=== PATIENT | female | born 1950 | race Caucasian/White ===

== ENCOUNTER 2018-04-06 07:14 | Emergency (ER) | payer OTHER ==
[2018-04-06] MEDS ORDERED: ONDANSETRON 4 MG/2 ML VIAL ONE ×2 (07:43→08:36)
[2018-04-06 08:12] LABS: Absolute Lymphocytes (CBC) 1.4 K/uL (0.7-4.9); Absolute Monocytes 0.4 K/uL (0.1-1.3); Absolute Neutrophil 5.5 K/uL (1.8-8.0); Basophils % 0.5 % (0-1.3); Eosinophils % 0.9 % (0-4.4); Hematocrit 40.6 % (36.0-45.0); Lymphocytes % 18.5 % (15.3-44.8); MPV 7.8 fL (7.6-11.3); RBC Red Blood Cell Count 4.76 M/uL (3.86-4.86)
[2018-04-06] MEDS ORDERED: DIAZEPAM 10 MG/2 ML INJ SYRINGE ONE (08:12)
[2018-04-06] MEDS ORDERED: MECLIZINE HCL 12.5 MG TAB ONE (08:12)
[2018-04-06] MEDS ORDERED: NA CHLORIDE 0.9% 1,000 ML ONE (08:13)
--- NOTE | 2018-04-06 08:30 | RAD REPORT ---
EXAM DESCRIPTION: CT - Head Brain Wo Cont - 04/06/2018 8:20 am CLINICAL HISTORY: Vomiting, headache, dizziness COMPARISON: December 2015 TECHNIQUE: Axial 5 mm thick images of the head were obtained without IV contrast. All CT scans are performed using dose optimization technique as appropriate and may include automated exposure control or mA/KV adjustment according to patient size. FINDINGS: No intracranial hemorrhage, mass, edema or shift of mid-line structures. No acute infarcti on changes seen. No abnormal extra-axial fluid collections. Ventricles are normal. No measurable atr ophy or chronic ischemic change. Intracranial findings are similar to comparison. Mastoid air cells and visualized portions of the paranasal sinuses are clear. No acute bony findings. IMPRESSION: Negative non-contrast CT head examination. No significant change from comparison.
[2018-04-06 09:13] LABS: Bilirubin Direct 0.2 mg/dL (0-0.2); Bilirubin Total 0.7 mg/dL (0.2-1.0); Potassium 3.8 mmol/L (3.5-5.1)
--- NOTE | 2018-04-06 10:13 | RAD REPORT ---
EXAM DESCRIPTION: CT - Head angio - 04/06/2018 9:53 am CLINICAL HISTORY: Dizziness, weakness, headache TECHNIQUE: During dynamic enhancement using nonionic IV contrast, axial 1 millimeter thick images of the head were obtained. Sagittal and axial reconstruction images were generated using MIP technique and reviewed. All CT scans are performed using dose optimization technique as appropriate and may include automated exposure control or mA/KV adjustment according to patient size. COMPARISON: CT head April 06 FINDINGS: No aneurysm or vascular malformation identified. Major venous sinuses are patent. No stenosis, named branch occlusion, vasculitis or other significant vascular finding identifiable. Right vertebral artery is dominant. The right posterior cerebral artery P1 segment is very small. The patient has a dominant right posterior communicating artery contributing most of the right [employer] flow. Small anterior communicating artery is present. IMPRESSION: Negative CT angio head examination.
[2018-04-06 11:27] LABS: Urine Blood NEGATIVE (NEG); Urine Glucose NEGATIVE (NEG); Urine Protein NEGATIVE (NEG)
--- NOTE | 2018-04-06 11:42 | EDPHYS ---
Physician Documentation [facility] Name: Sepideh Mendosa Age: 67 yrs Sex: Female : 1950 Arrival Date: 04/06/2018 Time: 07:22 Bed 6 Private MD: ED Physician Jani Russo HPI: 04/06 10:12 This 67 yrs old Female presents to ER via EMS with complaints of kdr Nausea/Vomiting, Flu Symptoms. 10:12 The patient presents to the emergency department with nausea, that is mild, that is kdr moderate, vomiting, that is intermittent. Onset: The symptoms/episode began/occurred suddenly, at 05:00. Possible causes: unknown, Vertigo. The symptoms are aggravated by movement, The symptoms are alleviated by remaining still. Associated signs and symptoms: Pertinent positives: nausea, vomiting. Severity of symptoms: At their worst the symptoms were moderate incapacitating just prior to arrival, in the emergency department the symptoms are unchanged. The patient has not experienced similar symptoms in the past. The patient has not recently seen a physician. . Historical: - Allergies: 07:38 Sulfa (Sulfonamide Antibiotics); ch 07:38 narcotics make me hallucinate; ch 07:38 Codeine; ch - Home Meds: 07:38 levothyroxine oral [Active]; ch - PMHx: 07:38 Asthma; HYPOGLYCEMIA; ch - PSHx: 07:38 Hysterectomy; Cholecystectomy; Mastectomy, Left; Mastectomy, Right; ch - Immunization history:: Adult Immunizations up to date. - Social history:: Smoking status: Patient/guardian denies using tobacco. - Ebola Screening: : Patient negative for fever greater than or equal to 101.5 degrees Fahrenheit, and additional compatible Ebola Virus Disease symptoms Patient denies exposure to infectious person Patient denies travel to an Ebola-affected area in the 21 days before illness onset No symptoms or risks identified at this time. ROS: 10:12 Constitutional: Negative for fever, chills, and weight loss, Eyes: Negative for injury, kdr pain, redness, and discharge, ENT: Negative for injury, pain, and discharge, Neck: Negative for injury, pain, and swelling, Cardiovascular: Negative for chest pain, palpitations, and edema, Respiratory: Negative for shortness of breath, cough, wheezing, and pleuritic chest pain, Abdomen/GI: Negative for abdominal pain, nausea, vomiting, diarrhea, and constipation, Back: Negative for injury and pain, : Negative for injury, bleeding, discharge, and swelling, MS/Extremity: Negative for injury and deformity, Skin: Negative for injury, rash, and discoloration, Psych: Negative for depression, anxiety, suicide ideation, homicidal ideation, and hallucinations, Allergy/Immunology: Negative for hives, rash, and allergies, Endocrine: Negative for neck swelling, polydipsia, polyuria, polyphagia, and marked weight changes, Hematologic/Lymphatic: Negative for swollen nodes, abnormal bleeding, and unusual bruising. 10:12 Neuro: Positive for dizziness, weakness, Negative for altered mental status, loss of consciousness, speech changes, syncope, near syncope, tingling, tinnitus, tremor, visual changes. Exam: 10:12 Constitutional: This is a well developed, well nourished patient who is awake, alert, kdr and in no acute distress. Head/Face: Normocephalic, atraumatic. Eyes: Pupils equal round and reactive to light, extra-ocular motions intact. Lids and lashes normal. Conjunctiva and sclera are non-icteric and not injected. Cornea within normal limits. Periorbital areas with no swelling, redness, or edema. Neck: Trachea midline, no thyromegaly or masses palpated, and no cervical lymphadenopathy. Supple, full range of motion without nuchal rigidity, or vertebral point tenderness. No Meningismus. Chest/axilla: Normal chest wall appearance and motion. Nontender with no deformity. No lesions are appreciated. Cardiovascular: Regular rate and rhythm with a normal S1 and S2. No gallops, murmurs, or rubs. Normal PMI, no JVD. No pulse deficits. Respiratory: Lungs have equal breath sounds bilaterally, clear to auscultation and percussion. No rales, rhonchi or wheezes noted. No increased work of breathing, no retractions or nasal flaring. Abdomen/GI: Soft, non-tender, with normal bowel sounds. No distension or tympany. No guarding or rebound. No evidence of tenderness throughout. Back: No spinal tenderness. No costovertebral tenderness. Full range of motion. Skin: Warm, dry with normal turgor. Normal color with no rashes, no lesions, and no evidence of cellulitis. MS/ Extremity: Pulses equal, no cyanosis. Neurovascular intact. Full, normal range of motion. Psych: Awake, alert, with orientation to person, place and time. Behavior, mood, and affect are within normal limits. 10:12 Neuro: Orientation: is normal, Mentation: is normal, Cerebellar function: is grossly normal based on the patient's age, Motor: is normal. Vital Signs: 07:38 BP 129 / 77; Pulse 73; Resp 16; Temp 97.6(O); Pulse Ox 91% on R/A; Weight 89.36 kg; ch Height 5 ft. 6 in. (167.64 cm); Pain 0/10; 08:34 BP 128 / 62; Pulse 70; Resp 16; Temp 97.8(O); Pulse Ox 93% on R/A; Pain 0/10; ch 09:35 BP 119 / 58; Pulse 64; Resp 15; Pulse Ox 99% on R/A; Pain 0/10; ch 07:38 Body Mass Index 31.80 (89.36 kg, 167.64 cm) ch 08:34 pt c/o feeling very cold, given another couple blankets. denies pain MDM: 11:37 Data reviewed: vital signs, nurses notes. ED course: The patient is feeling and looking kdr much better. States she is ready to go home. The patient and were happy with the care provided and the plan for discharge and follow-up. 11:42 Patient medically screened. [facility] 04/06 07:32 Order name: Basic Metabolic Panel; Complete Time: 09:24 [facility] 04/06 07:32 Order name: CBC with Diff; Complete Time: 09:10 [facility] 04/06 07:32 Order name: Creatinine for Radiology; Complete Time: 09:24 kdr 04/06 07:32 Order name: Hepatic Function; Complete Time: 09:24 kdr 04/06 07:32 Order name: Lipase; Complete Time: 09:24 [facility] 04/06 07:32 Order name: Flu; Complete Time: 09:10 [facility] 04/06 07:58 Order name: CT Head Brain wo Cont; Complete Time: 09:10 [facility] 04/06 09:36 Order name: Head angio; Complete Time: 11:03 EDMS 04/06 11:00 Order name: Urine Dipstick--Ancillary (enter results) 04/06 07:32 Order name: IV Saline Lock; Complete Time: 07:53 kdr 04/06 07:32 Order name: Labs collected and sent; Complete Time: 07:53 kdr Administered Medications: 07:55 Drug: Zofran 4 mg Route: IVP; Site: left antecubital; sg 08:25 Follow up: Response: No adverse reaction; Nausea is decreased sg 08:10 Drug: NS 0.9% 500 ml Route: IV; Rate: bolus; Site: left antecubital; hb 09:34 Follow up: IV Status: Completed infusion; IV Intake: 500ml ch 08:34 Drug: Zofran 4 mg Route: IVP; Site: left antecubital; ch 09:34 Follow up: Response: No adverse reaction ch 09:28 Not Given (Patient Refused): Valium 2 mg IVP once hb 09:29 Drug: Meclizine 25 mg Route: PO; hb 09:35 Follow up: Response: No adverse reaction Disposition: 04/06/18 11:42 Discharged to Home. Impression: Dizziness and giddiness, Nausea and vomiting. - Condition is Stable. - Discharge Instructions: Dizziness, [id number]. - Prescriptions for Meclizine 25 mg Oral Tablet - take 1 tablet by ORAL route every 8 hours As needed; 15 tablet. Zofran 4 mg Oral Tablet - take 1 tablet by ORAL route every 12 hours As needed; 12 tablet. - Medication Reconciliation Form, Thank You Letter form. - Follow up: Private Physician; When: 2 - 3 days; Reason: If symptoms return, Further diagnostic work-up, Recheck today's complaints, Continuance of care, Re-evaluation by your physician. - Problem is new. - Symptoms are resolved. Signatures: Dispatcher [employer] [facility] Natalia Tesfaye RN RN Christopher Chou RN RN sg Jani Russo MD MD [facility] Tosha Richard RN RN hb Corrections: (The following items were deleted from the chart) 09:36 09:34 Head Brain W Cont+CT.RAD.BRZ ordered. [facility] EDNY 12:00 11:42 04/06/2018 11:42 Discharged to Home. Impression: Dizziness and giddiness; Nausea hb and vomiting. Condition is Stable. Forms are Medication Reconciliation Form, Thank You Letter, Antibiotic Education, Prescription Opioid Use. Follow up: Private Physician; When: 2 - 3 days; Reason: If symptoms return, Further diagnostic work-up, Recheck today's complaints, Continuance of care, Re-evaluation by your physician. Problem is new. Symptoms are resolved. kdr
--- NOTE | 2018-04-06 11:42 | ER ---
Nurse's Notes [facility] Name: Sepideh Mendosa Age: 67 yrs Sex: Female : 1950 Arrival Date: 04/06/2018 Time: 07:22 Bed 6 Private MD: Diagnosis: Dizziness and giddiness;Nausea and vomiting Presentation: 04/06 07:35 Presenting complaint: EMS states: vomiting, dry heaves started around 0500. feels ch "bad", generalized body aches. pt is cool and diaphoretic, and activity vomiting. 2 unsuccessful IV access attempts. Transition of care: patient was not received from another setting of care. Onset of symptoms was April 06, 2018 at 05:00. Risk Assessment: Do you want to hurt yourself or someone else? Patient reports no desire to harm self or others. Initial Sepsis Screen: Does the patient meet any 2 criteria? No. Patient's initial sepsis screen is negative. Does the patient have a suspected source of infection? No. Patient's initial sepsis screen is negative. Care prior to arrival: None. 07:35 Method Of Arrival: EMS: [facility] 07:35 Acuity: EDDY 3 ch Triage Assessment: 07:38 General: Appears in no apparent distress. uncomfortable, ill, Behavior is cooperative, ch quiet. Pain: Denies pain. GI: Abdomen is round non-distended, Pt is actively vomiting pt is having Dry Heaves Bowel sounds present X 4 quads. Reports nausea, vomiting. Derm: Skin is intact, Skin is clammy, diaphoretic, Skin is pale, Skin temperature is cool. Historical: - Allergies: 07:38 Sulfa (Sulfonamide Antibiotics); ch 07:38 narcotics make me hallucinate; 07:38 Codeine; - Home Meds: 07:38 levothyroxine oral [Active]; ch - PMHx: 07:38 Asthma; HYPOGLYCEMIA; ch - PSHx: 07:38 Hysterectomy; Cholecystectomy; Mastectomy, Left; Mastectomy, Right; - Immunization history:: Adult Immunizations up to date. - Social history:: Smoking status: Patient/guardian denies using tobacco. - Ebola Screening: : Patient negative for fever greater than or equal to 101.5 degrees Fahrenheit, and additional compatible Ebola Virus Disease symptoms Patient denies exposure to infectious person Patient denies travel to an Ebola-affected area in the 21 days before illness onset No symptoms or risks identified at this time. Screenin:40 Abuse screen: Denies threats or abuse. Denies injuries from another. Nutritional ch screening: No deficits noted. Tuberculosis screening: No symptoms or risk factors identified. Fall Risk None identified. Assessment: 07:40 GI: Abdomen is round non-distended, Pt is actively vomiting bile. ch 07:49 General: Appears in no apparent distress. uncomfortable. Pain: Denies pain. Neuro: ch Level of Consciousness is obeys commands, Oriented to person, place, time, situation. Cardiovascular: Denies chest pain. Respiratory: Airway is patent Respiratory effort is even, unlabored. : No signs and/or symptoms were reported regarding the genitourinary system. Derm: Skin is clammy, Skin is pale. 08:34 Reassessment: Patient appears in no apparent distress at this time. pt returns from CT, ch Actively vomiting. pt medicated per orders. 09:35 Reassessment: Patient appears in no apparent distress at this time. Patient and/or ch family updated on plan of care and expected duration. Pain level reassessed. pt is improved, states she feels better. pt oob via wheelchair to restroom . 10:06 Reassessment: Patient appears in no apparent distress at this time. pt refuses straight sg cath urine at this time, reports she will attempt to clean better and provide a sample, notified, pt will attempt a urine specimen at this time. Vital Signs: 07:38 BP 129 / 77; Pulse 73; Resp 16; Temp 97.6(O); Pulse Ox 91% on R/A; Weight 89.36 kg; ch Height 5 ft. 6 in. (167.64 cm); Pain 0/10; 08:34 BP 128 / 62; Pulse 70; Resp 16; Temp 97.8(O); Pulse Ox 93% on R/A; Pain 0/10; ch 09:35 BP 119 / 58; Pulse 64; Resp 15; Pulse Ox 99% on R/A; Pain 0/10; ch 07:38 Body Mass Index 31.80 (89.36 kg, 167.64 cm) 08:34 pt c/o feeling very cold, given another couple blankets. denies pain ED Course: 07:22 Patient arrived in ED. ch 07:25 Jani Russo MD is Attending Physician. kdr 07:31 Natalia Tesfaye, LEONCIO is Primary Nurse. ch 07:36 Triage completed. ch 07:38 Arm band placed on left wrist. Patient placed in an exam room, on a stretcher, on pulse ch oximetry. 07:40 No apparent distress. Resting quietly. ch 07:40 Patient has correct armband on for positive identification. Placed in gown. Bed in low ch position. Call light in reach. Side rails up X 1. Adult w/ patient. Pulse ox on. NIBP on. Warm blanket given. 07:40 No provider procedures requiring assistance completed. ch 07:45 Missed attempt(s): 22 gauge in right hand. Bleeding controlled, band aid applied, sg catheter tip intact. 07:50 Inserted saline lock: 20 gauge in left antecubital area, using aseptic technique. Blood dh3 collected. 08:17 CT completed. Patient tolerated procedure well. Patient moved to CT via stretcher. [email or web address] Patient moved back from CT. 08:19 CT Head Brain wo Cont In Process Unspecified. EDMS 08:25 Patient moved back from CT. sg 09:37 Assisted to bathroom. sg 09:54 Head angio In Process Unspecified. EDMS 11:55 IV discontinued, intact, bleeding controlled, No redness/swelling at site. Pressure sg dressing applied. Administered Medications: 07:55 Drug: Zofran 4 mg Route: IVP; Site: left antecubital; sg 08:25 Follow up: Response: No adverse reaction; Nausea is decreased sg 08:10 Drug: NS 0.9% 500 ml Route: IV; Rate: bolus; Site: left antecubital; hb 09:34 Follow up: IV Status: Completed infusion; IV Intake: 500ml ch 08:34 Drug: Zofran 4 mg Route: IVP; Site: left antecubital; ch 09:34 Follow up: Response: No adverse reaction ch 09:28 Not Given (Patient Refused): Valium 2 mg IVP once hb 09:29 Drug: Meclizine 25 mg Route: PO; hb 09:35 Follow up: Response: No adverse reaction ch Intake: 09:34 IV: 500ml; Total: 500ml. ch Outcome: 11:42 Discharge ordered by . kdr 11:55 Discharged to home ambulatory, with family. sg 11:55 Condition: good 11:55 Discharge instructions given to patient, Instructed on discharge instructions, follow up and referral plans. medication usage, safety practices, Demonstrated understanding of instructions, follow-up care, medications, Prescriptions given X 2. 12:00 Patient left the ED. Signatures: Dispatcher [employer] EDMS Natalia Tesfaye RN RN Christopher Chou RN RN Jani Russo MD MD kdr Baxter, Heather, RN RN Reyna Shoemaker [facility] Brianna Castillo6
[2018-04-06 12:09] VITALS: TEMP 97.8
[2018-04-06 12:12] VITALS: BP 119/58; O2SAT 99
== END 2018-04-06 12:00 | disposition home or self-care (01) ==
LOC: ER 07:14
DX: R11.2 Nausea with vomiting, unspecified (principal); Z88.2 Allergy status to sulfonamides; Z88.5 Allergy status to narcotic agent; Z90.13 Acquired absence of bilateral breasts and nipples
CPT/HCPCS: 36415; 70450; 70496; 80048; 80076; 81003; 83690; 85025; 87804 ×2; 96361; 96374; 99285; J2405 ×2; J3360; J7030; Q9967

== ENCOUNTER 2018-10-01 09:06 | Emergency (ER) | payer OTHER ==
[2011-12-16 07:57] VITALS: BP 103/43
--- NOTE | 2018-10-01 09:52 | RAD REPORT ---
EXAM DESCRIPTION: CT - Ct Stroke Brain Wo Cont - 10/01/2018 9:30 am CLINICAL HISTORY: brief L sided facial droop, mild aphasia Headache, CVA COMPARISON: Head angio dated 04/06/2018; Head Brain Wo Cont dated 04/06/2018 TECHNIQUE: All CT scans are performed using dose optimization technique as appropriate and may inclu de automated exposure control or mA/KV adjustment according to patient size. FINDINGS: No intracranial hemorrhage, hydrocephalus or extra-axial fluid collection.No areas of brai n edema or evidence of midline shift. The paranasal sinuses and mastoids are clear. The calvarium is intact. IMPRESSION: No acute intracranial abnormality. The findings were discussed with Dr. Cronin On 10/01/18 at 9:25 am by telephone.
--- NOTE | 2018-10-01 10:00 | EKG ---
Test Date: 2018-10-01 Test Time: 09:46:50 [place]: PATTI MEASUREMENT RESULTS: Intervals: Rate: 78 GA: 222 QRSD: 98 QT: 402 QTc: 458 [place]: P: 60 GA: 222 QRS: 72 T: 50 INTERPRETIVE STATEMENTS: Sinus rhythm with 1st degree AV block Otherwise normal ECG Compared to ECG 10/03/2015 14:09:33 First degree AV block now present ST (T wave) deviation no longer present Electronically Signed On 10-01-18 10:00:00 CDT by Shlomo Eckert
[2018-10-01 10:02] LABS: Absolute Lymphocytes (CBC) 2.7 K/uL (0.7-4.9); Basophils % 0.6 % (0-1.3); Eosinophils % 2.3 % (0-4.4); Hematocrit 39.8 % (36.0-45.0); MPV 7.5 fL (7.6-11.3); Monocytes % 8.4 % (3.3-12.3); RBC Red Blood Cell Count 4.67 M/uL (3.86-4.86)
[2018-10-01 10:05] LABS: Protime INR 0.96
[2018-10-01] MEDS ORDERED: ALTEPLASE 100 ML IV ONE (10:11)
[2018-10-01 10:16] LABS: Potassium 3.5 mmol/L (3.5-5.1)
[2018-10-01] MEDS ORDERED: NA CHLORIDE 0.9% 250 ML ONE (10:16)
--- NOTE | 2018-10-01 10:31 | ER ---
Nurse's Notes [facility] Name: Sepideh Mendosa Age: 68 yrs Sex: Female : 1950 Arrival Date: 10/01/2018 Time: 09:07 Bed 6 Private MD: Aly Johnson Diagnosis: Slurred speech;Paresthesia of skin;Facial weakness;Cerebral infarction Presentation: 10/01 09:10 Presenting complaint: states: Eating at 0850 when patient reports she could ss feel the left side of her face pulling. She asked her if it looked like it was drooping and he said yes. Patient and came straight to ER. Upon arrival to ED, patient reports that her facial drooping seems better, but she doesn't know why she keeps crying. Pt seems to be having trouble finding words. Transition of care: patient was not received from another setting of care. Onset of symptoms was October 01, 2018 at 08:50. Risk Assessment: Do you want to hurt yourself or someone else? Patient reports no desire to harm self or others. Initial Sepsis Screen: Does the patient meet any 2 criteria? No. Patient's initial sepsis screen is negative. Does the patient have a suspected source of infection? No. Patient's initial sepsis screen is negative. Care prior to arrival: None. 09:10 Method Of Arrival: Ambulatory ss 09:10 Acuity: EDDY 2 ss 09:15 Presenting complaint: states: stated that pt was also c/o left facial numbness, sv dizziness, and nausea at the time on onset. 09:21 An acute neurological deficit is present. The charge nurse has been notified. The sv patient has been moved to a treatment area. Pre-hospital glucose is not applicable to this patient. Stroke Activation: Symptom onset < 3 hours Physician: Stroke Attending; Name: ; Notified At: ; Arrived At: Physician: Chief Stroke Resident; Name: ; Notified At: ; Arrived At: Physician: Stroke Resident; Name: ; Notified At: ; Arrived At: Physician: ED Attending; Name: Dr Cronin; Notified At: 09:19; Arrived At: 09:21 Physician: ED Resident; Name: ; Notified At: ; Arrived At: Historical: - Allergies: 10:13 Codeine; sv 10:13 narcotics make me hallucinate; sv 10:13 Sulfa (Sulfonamide Antibiotics); sv - Home Meds: 10:13 statin drug every other day [Active]; Advair Diskus Inhl [Active]; levothyroxine oral sv [Active]; Prevacid Oral [Active]; Proventil HFA inhalation inhalation [Active]; - PMHx: 10:13 Asthma; HYPOGLYCEMIA; mitral valve prolapse; TIA; sv - PSHx: 10:13 Hysterectomy; Cholecystectomy; Mastectomy, Left; Mastectomy, Right; sv - Immunization history:: Adult Immunizations up to date. - Family history:: not pertinent. - Social history:: Smoking status: Patient/guardian denies using tobacco. - Ebola Screening: : No symptoms or risks identified at this time. - Hospitalizations: : No recent hospitalization is reported. Screenin:25 Abuse screen: Denies threats or abuse. Denies injuries from another. Nutritional ss screening: No deficits noted. Tuberculosis screening: Never had TB. 10:46 Fall Risk No fall in past 12 months (0 pts). No secondary diagnosis (0 pts). IV access sv (20 points). Ambulatory Aid- None/Bed Rest/Nurse Assist (0 pts). Gait- Normal/Bed Rest/Wheelchair (0 pts) Mental Status- Overestimates/Forgets Limitations (15 pts.). Total Bojorquez Fall Scale indicates Low Risk Score (25-44 pts). Fall prevention measures have been instituted. Side Rails Up X 2 Placed close to Nursing Station 1:1 attendant Assigned to Pt. Frequent Obs/Assesments occuring Family Present and informed to notify staff if they need to leave bedside As available Patient and Family Educated on Fall Prevention Program and strategies. Assessment: 09:10 Reassessment: Code Stroke called, patient to CT at this time VIA wheelchair. ss brought to Room 6. 09:25 VAN Scoring: Arm Drift: Patients demonstrates NO arm weakness. Patient is VAN Negative. sv Visual Disturbance: No visual disturbance noted. Aphasia: No aphasia noted. Neglect: No neglect noted. Patient has been NPO before screening. The patient is alert, and able to follow commands. The patient does not exhibit slurred or garbled speech. The patient is exhibiting difficulty speaking. Provider notified of the indication for Speech Therapy consult. The patient does not exhibit difficulty understanding words. The patient is able to swallow own secretions with no drooling or need for suction. Patient tolerated one teaspoon of water. No drooling, immediate coughing, gurgling, or clearing of the throat was noted. The patient tolerated 90mL of water. No drooling, immediate coughing, gurgling, or clearing of the throat was noted. The patient passed the bedside swallow screening. Oral medications may be given as ordered. Contact Physician for further diet orders. Provider notified of bedside swallow screening results: Ronni Cronin MD. 09:25 General: Appears in no apparent distress. uncomfortable, well developed, Behavior is sv cooperative, appropriate for age, anxious. Pain: Denies pain. Neuro: Level of Consciousness is awake, alert, obeys commands, Oriented to person, place, time, situation, Food Specialist are equal bilaterally Moves all extremities. Full function Speech with expressive aphasia noted, Facial symmetry appears normal, Reports dizziness. Cardiovascular: Rhythm is sinus rhythm. Respiratory: Airway is patent Respiratory effort is even, unlabored, Respiratory pattern is regular, symmetrical. Derm: Skin is pink, warm \T\ dry. Musculoskeletal: Range of motion: intact in all extremities. 09:48 T-PA (Activase) Screening: Indications: Definite evidence of stroke, ischemic, embolic, sv or hypertensive: Yes. Treatment will start within 4.5 hours onset of symptoms: Yes. No evidence of intracranial hemorrhage or CT of head and no evidence of peripheral hemorrhage or recent CVA: Yes. Consent for thrombolytic therapy: Yes. 10:06 General: Appears in no apparent distress. comfortable, well developed, Behavior is sv cooperative, appropriate for age, anxious. Pain: Denies pain. Neuro: Level of Consciousness is obeys commands, lethargic, Oriented to Food Specialist are equal bilaterally Moves all extremities. Full function Speech is slurred, with expressive aphasia noted, Facial symmetry appears normal. Respiratory: Airway is patent Respiratory effort is even, unlabored, Respiratory pattern is regular, symmetrical. Derm: Skin is pink, warm \T\ dry. 11:02 General: Appears in no apparent distress. comfortable, well developed, Behavior is sv calm, cooperative, appropriate for age. Pain: Denies pain. Neuro: Level of Consciousness is awake, alert, obeys commands, Oriented to person, place, time, situation, Food Specialist are equal bilaterally Moves all extremities. Full function Speech is normal, Facial symmetry appears normal, Facial symmetry: tongue is midline, Denies weakness blurred vision dizziness, numbness headache. Cardiovascular: Patient's skin is warm and dry. Pulses are 3+ in right radial artery and left radial artery Rhythm is sinus rhythm. Respiratory: Airway is patent Respiratory effort is even, unlabored, Respiratory pattern is regular, symmetrical. Derm: Skin is pink, warm \T\ dry. Musculoskeletal: Range of motion: intact in all extremities. 11:55 Reassessment: Patient appears in no apparent distress at this time. No changes from sv previously documented assessment. Patient and/or family updated on plan of care and expected duration. Pain level reassessed. Patient is alert, oriented x 3, equal unlabored respirations, skin warm/dry/pink. 12:05 Reassessment: Report given to Radha FANG at [facility]. sv Vital Signs: 09:24 BP 147 / 79; Pulse 73; Resp 18; Pulse Ox 95% on R/A; ss 09:50 Weight 89.6 kg (M); sv 10:10 BP 126 / 76; Pulse 80 MON; Resp 15; Pulse Ox 96% on 2 lpm NC; sv 10:21 BP 129 / 74; Pulse 72; Resp 15; Pulse Ox 99% on 2 lpm NC; sv 10:35 Pulse 71; Resp 18; Pulse Ox 98% on 2 lpm NC; sv 10:50 BP 141 / 78; Pulse 84; Resp 18; Pulse Ox 98% on 2 lpm NC; sv 11:02 BP 136 / 70; Pulse 70; Resp 18; Pulse Ox 98% on 2 lpm NC; sv 11:15 BP 133 / 76; Pulse 72; Resp 12; Pulse Ox 100% on 2 lpm NC; sv 11:30 BP 128 / 78; Pulse 71; Resp 17; Pulse Ox 100% on 2 lpm NC; sv 11:45 BP 127 / 99; Pulse 71; Resp 20; Pulse Ox 100% on 2 lpm NC; sv 10:10 Sinus Rhythm sv 10:35 Unable to get BP at this time, in CT and blood pressure cuff needed to be removed for sv CT. Thanh Coma Score: 10:10 Eye Response: spontaneous(4). Verbal Response: oriented(5). Motor Response: obeys sv commands(6). Total: 15. NIH Stroke Scale Scores: 09:25 NIHSS Score: 2 sv 09:37 NIHSS Score: 2 rn 11:02 NIHSS Score: 0 sv ED Course: 09:07 Patient arrived in ED. as 09:08 Aly Johnson MD is Private Physician. as 09:11 Ronni Cronin MD is Attending Physician. rn 09:15 Arm band placed on right wrist. ss 09:21 Patient moved back from CT. sv 09:25 Patient has correct armband on for positive identification. Bed in low position. Call ss light in reach. Side rails up X2. surveillance system monitor on. Pulse ox on. NIBP on. 09:25 Inserted saline lock: 20 gauge in right wrist, using aseptic technique. ,using aseptic ss technique. insertion by Micheline Nunez RN Blood collected. Patient maintains SpO2 saturation greater than 95% on room air. 09:30 CT Stroke Brain w/o Contrast In Process Unspecified. EDMS 09:31 Triage completed. ss 09:44 Stroke CXR 1 View In Process Unspecified. EDMS 09:45 Lab(s) recollected, by ED staff, sent to lab. Inserted saline lock: 22 gauge in right sv antecubital area, using aseptic technique. ,using aseptic technique. done by Radha FANG Blood collected. 09:48 TPA consent signed by spouse and gone over with the pt. sv 10:03 EKG done, by ED staff, reviewed by Ronni Cronin MD. sv 10:07 Micheline Nunez, LEONCIO is Primary Nurse. sv 10:09 Basic Metabolic Panel Sent. sv 10:19 initiated a transfer with Keisha at the [facility]. eb 10:[address] Jay the neurologist building inspection engineer for [facility] with Dr. Cronin for patient transfer consultation. 10:32 administrative approval given by Keisha Woodard RN / patient has been accepted to the [facility] 7 south 5 Bed 14/ Dr. Jay has accepted the patient in transfer/ report to be called to [phone]. 10:[address] via stretcher. sv 10:55 CT Head Angio In Process Unspecified. EDMS 10:55 CT Neck Angio In Process Unspecified. EDMS 11:20 transfer transportation to receiving facility. sv 12:24 No provider procedures requiring assistance completed. Patient transferred, IV remains sv in place. intact. 19:00 Primary Nurse role handed off by Micheline Nunez RN sv Administered Medications: 10:06 Drug: ACTIvase {Co-Signature: tr5 (Santi Gonzalez RN).} Route: IV Thrombolytics; sv Rate: calculated rate; Infused Over: 60 mins; 11:02 Follow up: Response: No adverse reaction; Marked relief of symptoms sv 11:02 Follow up: Response: No adverse reaction sv Point of Care Testing: Blood Glucose: 09:24 Blood Glucose: 121 mg/dL; ss Ranges: Outcome: 10:31 ER care complete, transfer ordered by rn 12:22 Transferred by the [facility] to [facility], Transfer form completed. sv X-rays sent w/ patient. Note: Report given to Walter from EMS. 12:22 Condition: stable 12:22 Instructed on the need for transfer. 12:43 Patient left the ED. NIH Stroke Scale - NIH Stroke Score Date: 10/01/2018 Time: 09:25 Total Score = 2 1a. Level of Consciousness (LOC) - 0(Alert) 1b. Level of Consciousness (LOC) (Year \T\ Age) - 0(Both) 1c. LOC Commands (Open \T\ Closes Eyes/Fuller Brush Worker) - 0(Both) 2. Best Gaze (Lateral Gaze Paresis) - 0(Normal) 3. Visual Field Loss - 0(No visual loss) 4. Facial Palsy - 1(Minor Paralysis) 5a. Left Arm: Motor (10-second hold) - 0(No drift) 5b. Right Arm: Motor (10-second hold) - 0(No drift) 6a. Left Leg: Motor (5-second hold - always test supine) - 0(No drift) 6b. Right Leg: Motor (5-second hold - always test supine) - 0(No drift) 7. Limb Ataxia (finger/nose \T\ heel/orlando - test with eyes open) - 0(Absent) 8. Sensory Loss (pinprick arms/legs/face) - 0(Normal) 9. Best Language: Aphasia (description/naming/reading) - 0(No aphasia) 10. Dysarthria (speech clarity - read or repeat words) - 1(Mild to Moderate) 11. Extinction and Inattention (visual/tactile/auditory/spatial/personal) - 0(No abnormality) Initials: sv NIH Stroke Scale - NIH Stroke Score Date: 10/01/2018 Time: 09:37 Total Score = 2 1a. Level of Consciousness (LOC) - 0(Alert) 1b. Level of Consciousness (LOC) (Year \T\ Age) - 0(Both) 1c. LOC Commands (Open \T\ Closes Eyes/Fuller Brush Worker) - 0(Both) 2. Best Gaze (Lateral Gaze Paresis) - 0(Normal) 3. Visual Field Loss - 0(No visual loss) 4. Facial Palsy - 1(Minor Paralysis) 5a. Left Arm: Motor (10-second hold) - 0(No drift) 5b. Right Arm: Motor (10-second hold) - 0(No drift) 6a. Left Leg: Motor (5-second hold - always test supine) - 0(No drift) 6b. Right Leg: Motor (5-second hold - always test supine) - 0(No drift) 7. Limb Ataxia (finger/nose \T\ heel/orlando - test with eyes open) - 0(Absent) 8. Sensory Loss (pinprick arms/legs/face) - 0(Normal) 9. Best Language: Aphasia (description/naming/reading) - 0(No aphasia) 10. Dysarthria (speech clarity - read or repeat words) - 1(Mild to Moderate) 11. Extinction and Inattention (visual/tactile/auditory/spatial/personal) - 0(No abnormality) Initials: rn NIH Stroke Scale - NIH Stroke Score Date: 10/01/2018 Time: 11:02 Total Score = 0 1a. Level of Consciousness (LOC) - 0(Alert) 1b. Level of Consciousness (LOC) (Year \T\ Age) - 0(Both) 1c. LOC Commands (Open \T\ Closes Eyes/Fuller Brush Worker) - 0(Both) 2. Best Gaze (Lateral Gaze Paresis) - 0(Normal) 3. Visual Field Loss - 0(No visual loss) 4. Facial Palsy - 0(Normal) 5a. Left Arm: Motor (10-second hold) - 0(No drift) 5b. Right Arm: Motor (10-second hold) - 0(No drift) 6a. Left Leg: Motor (5-second hold - always test supine) - 0(No drift) 6b. Right Leg: Motor (5-second hold - always test supine) - 0(No drift) 7. Limb Ataxia (finger/nose \T\ heel/orlando - test with eyes open) - 0(Absent) 8. Sensory Loss (pinprick arms/legs/face) - 0(Normal) 9. Best Language: Aphasia (description/naming/reading) - 0(No aphasia) 10. Dysarthria (speech clarity - read or repeat words) - 0(Normal) 11. Extinction and Inattention (visual/tactile/auditory/spatial/personal) - 0(No abnormality) Initials: sv Signatures: Dispatcher [employer] Micheline Cross RN RN sv Gay, Steven RN RN Chloé Oneil Roman, MD MD rn Smirch, Shelby, RN RN Jayla Perez RN tr5
--- NOTE | 2018-10-01 10:32 | EDPHYS ---
Physician Documentation [facility] – [place], [place] Name: Sepideh Mendosa Age: 68 yrs Sex: Female : 1950 Arrival Date: 10/01/2018 Time: 09:07 Bed 6 Private MD: Aly Johnson ED Physician Ronni Cronin HPI: 10/01 10:02 This 68 yrs old Female presents to ER via Ambulatory with complaints of rn Headache, Dizziness, Numbness Of Face. 10:02 The patient presents to the emergency department with a speech or higher order brain rn function problem, paresthesias of the left side of the face. Onset: The symptoms/episode began/occurred at 09:00. Associated signs and symptoms: Pertinent positives: paresthesias, weakness, Pertinent negatives: altered mental status, fever, seizure, syncope, double vision, visual field changes, loss of vision. Severity of symptoms: At their worst the symptoms were moderate in the emergency department the symptoms are unchanged. Current symptoms: speech problem, let facial droop. The patient has experienced a previous episode. Reports at [employer], eating, sudden onset of left facial droop, left facial numbness, speech difficulty, + hx of TIA a few months ago without residual deficit, no trauma, was totally fine prior to episode. No recent surgery/hx of brain tumor or bleed, no intestinal bleeding recently. NO chest pain/sob. . Historical: - Allergies: 10:13 Codeine; sv 10:13 narcotics make me hallucinate; sv 10:13 Sulfa (Sulfonamide Antibiotics); sv - Home Meds: 10:13 statin drug every other day [Active]; Advair Diskus Inhl [Active]; levothyroxine oral sv [Active]; Prevacid Oral [Active]; Proventil HFA inhalation inhalation [Active]; - PMHx: 10:13 Asthma; HYPOGLYCEMIA; mitral valve prolapse; TIA; sv - PSHx: 10:13 Hysterectomy; Cholecystectomy; Mastectomy, Left; Mastectomy, Right; sv - Immunization history:: Adult Immunizations up to date. - Family history:: not pertinent. - Social history:: Smoking status: Patient/guardian denies using tobacco. - Ebola Screening: : No symptoms or risks identified at this time. - Hospitalizations: : No recent hospitalization is reported. ROS: 10:02 Constitutional: Negative for fever, chills, and weight loss, Eyes: Negative for injury, rn pain, redness, and discharge, Neck: Negative for injury, pain, and swelling, Cardiovascular: Negative for chest pain, palpitations, and edema, Respiratory: Negative for shortness of breath, cough, wheezing, and pleuritic chest pain, Abdomen/GI: Negative for abdominal pain, nausea, vomiting, diarrhea, and constipation, MS/Extremity: Negative for injury and deformity, Skin: Negative for injury, rash, and discoloration, Neuro: Negative for headache, + left facial weakness and numbness, + speech problem Exam: 10:02 Constitutional: This is a well developed, well nourished patient who is awake, alert, rn appears frustrated and broken speech Head/Face: Normocephalic, atraumatic. Eyes: Pupils equal round and reactive to light, extra-ocular motions intact. Lids and lashes normal. Conjunctiva and sclera are non-icteric and not injected. Cornea within normal limits. Periorbital areas with no swelling, redness, or edema. ENT: MMM Cardiovascular: Regular rate and rhythm. No pulse deficits. Respiratory: Mild tachypnea, clear bilaterally Abdomen/GI: soft, non-tender MS/ Extremity: Pulses equal, no cyanosis. Neurovascular intact. Full, normal range of motion. Equal circumference. Neuro: Awake, Alert, GCS 15, + minor left lower facial droop with forehead sparing, strength 4/5 in all extremities, no drift, coordination intact. + mild to moderate dysarthria with stuttering speech and slow speech. Vital Signs: 09:24 BP 147 / 79; Pulse 73; Resp 18; Pulse Ox 95% on R/A; ss 09:50 Weight 89.6 kg (M); sv 10:10 BP 126 / 76; Pulse 80 MON; Resp 15; Pulse Ox 96% on 2 lpm NC; sv 10:21 BP 129 / 74; Pulse 72; Resp 15; Pulse Ox 99% on 2 lpm NC; sv 10:35 Pulse 71; Resp 18; Pulse Ox 98% on 2 lpm NC; sv 10:50 BP 141 / 78; Pulse 84; Resp 18; Pulse Ox 98% on 2 lpm NC; sv 11:02 BP 136 / 70; Pulse 70; Resp 18; Pulse Ox 98% on 2 lpm NC; sv 11:15 BP 133 / 76; Pulse 72; Resp 12; Pulse Ox 100% on 2 lpm NC; sv 11:30 BP 128 / 78; Pulse 71; Resp 17; Pulse Ox 100% on 2 lpm NC; sv 11:45 BP 127 / 99; Pulse 71; Resp 20; Pulse Ox 100% on 2 lpm NC; sv 10:10 Sinus Rhythm sv 10:35 Unable to get BP at this time, in CT and blood pressure cuff needed to be removed for sv CT. NIH Stroke Scale Scores: 09:25 NIHSS Score: 2 sv 09:37 NIHSS Score: 2 rn 11:02 NIHSS Score: 0 sv Thanh Coma Score: 10:10 Eye Response: spontaneous(4). Verbal Response: oriented(5). Motor Response: obeys sv commands(6). Total: 15. MDM: 09:11 Patient medically screened. rn 09:37 ED course: Still awaiting read from radiology. Discussed with and patient, they rn consent for TPA. Will give as soon as read in performed by radiology. . 09:47 ED course: CT head no acute findings per Dr. Rosenberg, will administer TPA. . ED course: rn Symptoms seem worsening, have more severe broken speech. . ED course: confirms that speech is not normal for her.. 10:08 ED course: glucose 121. . rn 10:28 Data reviewed: vital signs, nurses notes, lab test result(s), EKG, radiologic studies, rn CT scan, and as a result, I will admit patient. Counseling: I had a detailed discussion with the patient and/or guardian regarding: the historical points, exam findings, and any diagnostic results supporting the discharge/admit diagnosis, lab results, radiology results, the need for further work-up and treatment in the hospital, the need to transfer to another facility, for higher level of care, [facility] does not immediately have the required specialist. Response to treatment: the patient's symptoms have mildly improved after treatment. ED course: Pt accepted for transfer to [facility] neuro ICU by Dr. Jay, TPA running, Dr. Jay requests CT angio head and neck and will accept. . 11:07 ED course: Symptoms have resolved.. rn 10/01 09:32 Order name: Basic Metabolic Panel ss 10/01 09:32 Order name: CBC with Diff; Complete Time: 10:07 ss 10/01 09:15 Order name: CT Stroke Brain w/o Contrast; Complete Time: 10:07 ss 10/01 09:32 Order name: Protime (+inr); Complete Time: 10:07 ss 10/01 09:32 Order name: Ptt, Activated; Complete Time: 10:07 ss 10/01 09:33 Order name: Basic Metabolic Panel; Complete Time: 10:22 EDMS 10/01 09:32 Order name: Stroke CXR 1 View; Complete Time: 11:07 ss 10/01 09:32 Order name: EKG; Complete Time: 09:34 ss 10/01 09:32 Order name: Accucheck; Complete Time: 09:33 ss 10/01 09:32 Order name: Cardiac monitoring; Complete Time: 09:33 ss 10/01 09:32 Order name: EKG - Nurse/Tech; Complete Time: 10:09 ss 10/01 10:25 Order name: CT Head Angio; Complete Time: 11:15 rn 10/01 10:25 Order name: CT Neck Angio; Complete Time: 11:15 rn 10/01 09:32 Order name: IV Saline Lock; Complete Time: 10:09 ss 10/01 09:32 Order name: Labs collected and sent; Complete Time: 10: ss 10/01 09:32 Order name: NPO; Complete Time: 10:09 ss 10/01 09:32 Order name: O2 Per Protocol; Complete Time: 09:33 ss 10/01 09:32 Order name: O2 Sat Monitoring; Complete Time: 09:33 ss 10/01 09:32 Order name: Stroke Swallow Screen; Complete Time: 10:09 ss Administered Medications: 10:06 Drug: ACTIvase {Co-Signature: tr5 (Santi Gonzalez RN).} Route: IV Thrombolytics; sv Rate: calculated rate; Infused Over: 60 mins; 11:02 Follow up: Response: No adverse reaction; Marked relief of symptoms sv 11:02 Follow up: Response: No adverse reaction sv Point of Care Testing: Blood Glucose: 09:24 Blood Glucose: 121 mg/dL; ss Ranges: Critical Glucose Levels:Adult <50 mg/dl or >400 mg/dl <40 mg/dl or >180 mg/dl Disposition: 10/01/18 10:31 Transfer ordered to [facility]. Diagnosis are Slurred speech, Paresthesia of skin, Facial weakness, Cerebral infarction. - Reason for transfer: Higher level of care. - Accepting physician is Dr. Jay. - Condition is Stable. - Problem is new. - Symptoms have improved. Critical care time excluding procedures: 10:28 Critical care time: Bedside Care: 25 minutes, Consultation: 5 minutes, Family rn Intervention: 5 minutes. Total time: 35 minutes NIH Stroke Scale - NIH Stroke Score Date: 10/01/2018 Time: 09:25 Total Score = 2 1a. Level of Consciousness (LOC) - 0(Alert) 1b. Level of Consciousness (LOC) (Year \T\ Age) - 0(Both) 1c. LOC Commands (Open \T\ Closes Eyes/Scrap Separator) - 0(Both) 2. Best Gaze (Lateral Gaze Paresis) - 0(Normal) 3. Visual Field Loss - 0(No visual loss) 4. Facial Palsy - 1(Minor Paralysis) 5a. Left Arm: Motor (10-second hold) - 0(No drift) 5b. Right Arm: Motor (10-second hold) - 0(No drift) 6a. Left Leg: Motor (5-second hold - always test supine) - 0(No drift) 6b. Right Leg: Motor (5-second hold - always test supine) - 0(No drift) 7. Limb Ataxia (finger/nose \T\ heel/orlando - test with eyes open) - 0(Absent) 8. Sensory Loss (pinprick arms/legs/face) - 0(Normal) 9. Best Language: Aphasia (description/naming/reading) - 0(No aphasia) 10. Dysarthria (speech clarity - read or repeat words) - 1(Mild to Moderate) 11. Extinction and Inattention (visual/tactile/auditory/spatial/personal) - 0(No abnormality) Initials: sv NIH Stroke Scale - NIH Stroke Score Date: 10/01/2018 Time: 09:37 Total Score = 2 1a. Level of Consciousness (LOC) - 0(Alert) 1b. Level of Consciousness (LOC) (Year \T\ Age) - 0(Both) 1c. LOC Commands (Open \T\ Closes Eyes/Scrap Separator) - 0(Both) 2. Best Gaze (Lateral Gaze Paresis) - 0(Normal) 3. Visual Field Loss - 0(No visual loss) 4. Facial Palsy - 1(Minor Paralysis) 5a. Left Arm: Motor (10-second hold) - 0(No drift) 5b. Right Arm: Motor (10-second hold) - 0(No drift) 6a. Left Leg: Motor (5-second hold - always test supine) - 0(No drift) 6b. Right Leg: Motor (5-second hold - always test supine) - 0(No drift) 7. Limb Ataxia (finger/nose \T\ heel/orlando - test with eyes open) - 0(Absent) 8. Sensory Loss (pinprick arms/legs/face) - 0(Normal) 9. Best Language: Aphasia (description/naming/reading) - 0(No aphasia) 10. Dysarthria (speech clarity - read or repeat words) - 1(Mild to Moderate) 11. Extinction and Inattention (visual/tactile/auditory/spatial/personal) - 0(No abnormality) Initials: sandip NIH Stroke Scale - NIH Stroke Score Date: 10/01/2018 Time: 11:02 Total Score = 0 1a. Level of Consciousness (LOC) - 0(Alert) 1b. Level of Consciousness (LOC) (Year \T\ Age) - 0(Both) 1c. LOC Commands (Open \T\ Closes Eyes/Scrap Separator) - 0(Both) 2. Best Gaze (Lateral Gaze Paresis) - 0(Normal) 3. Visual Field Loss - 0(No visual loss) 4. Facial Palsy - 0(Normal) 5a. Left Arm: Motor (10-second hold) - 0(No drift) 5b. Right Arm: Motor (10-second hold) - 0(No drift) 6a. Left Leg: Motor (5-second hold - always test supine) - 0(No drift) 6b. Right Leg: Motor (5-second hold - always test supine) - 0(No drift) 7. Limb Ataxia (finger/nose \T\ heel/orlando - test with eyes open) - 0(Absent) 8. Sensory Loss (pinprick arms/legs/face) - 0(Normal) 9. Best Language: Aphasia (description/naming/reading) - 0(No aphasia) 10. Dysarthria (speech clarity - read or repeat words) - 0(Normal) 11. Extinction and Inattention (visual/tactile/auditory/spatial/personal) - 0(No abnormality) Initials: sv Signatures: Dispatcher [employer] Micheline Cross RN RN sv Gay, Steven, RN RN sg Ronni Cronin MD MD rn Smirch, Shelby, RN RN ss Santi Gonzalez RN tr5 Corrections: (The following items were deleted from the chart) 12:43 10:31 10/01/2018 10:31 Transfer ordered to [facility]. sg Diagnosis is Slurred speech; Paresthesia of skin; Facial weakness; Cerebral infarction. Reason for transfer: Higher level of care. Accepting physician is Dr. Jay. Condition is Stable. Problem is new. Symptoms have improved. rn
--- NOTE | 2018-10-01 11:03 | RAD REPORT ---
EXAM DESCRIPTION: RAD - Chest Single View - 10/01/2018 9:43 am CLINICAL HISTORY: stroke protocol Chest pain. COMPARISON: Chest Single View dated 10/03/2015; CHEST PA AND LAT 2 VIEW dated 12/15/2011; CHEST PA AND LAT 2 VIEW dated 02/06/2009 FINDINGS: Portable technique limits examination quality. The lungs are grossly clear. The heart is normal in size. No displaced fractures. IMPRESSION: No acute intrathoracic process suspected.
--- NOTE | 2018-10-01 11:10 | RAD REPORT ---
EXAM DESCRIPTION: CT - Head angio - 10/01/2018 10:55 am CLINICAL HISTORY: Slurred speech;Weakness Headache, drowsiness, CVA symptomology COMPARISON: Ct Stroke Brain Wo Cont dated 10/01/2018; Head angio dated 04/06/2018 TECHNIQUE: CT angiography of the head was performed with MIPs. All CT scans are performed using dose optimization technique as appropriate and may include automated exposure control or mA/KV adjustment according to patient size. FINDINGS: No evidence of aneurysm is detected. No flow-limiting stenosis or vascular malformation id entified. Antegrade flow is seen in the vertebral arteries. The vertebral arteries are patent, right-sided sylvia nant. The visualized dural venous sinuses are patent. IMPRESSION: No significant flow abnormality is detected.
--- NOTE | 2018-10-01 11:13 | RAD REPORT ---
EXAM DESCRIPTION: CT - Neck Angio - 10/01/2018 10:55 am CLINICAL HISTORY: slurred speech;Numbness Headache, drowsiness, CVA symptomology COMPARISON: <Comparisons> TECHNIQUE: CT angiography of the neck vessels was performed with MIPs. All CT scans are performed using dose optimization technique as appropriate and may include automated exposure control or mA/KV adjustment according to patient size. FINDINGS: A left aortic arch is identified with normal three vessel configuration of the great vesse ls. No significant flow abnormality is seen of the common carotid bilaterally. No significant stenosis is identified involving the cervical segments of both internal carotid arteri es. Normal flow is seen within both vertebral arteries. IMPRESSION: No significant flow abnormality of the neck vessels is identified.
== END 2018-10-01 12:43 | disposition short-term general hospital (02) ==
LOC: ER 09:06
DX: I63.9 Cerebral infarction, unspecified (principal); R47.81 Slurred speech; R29.702 NIHSS score 2; R20.2 Paresthesia of skin; I34.1 Nonrheumatic mitral (valve) prolapse; J45.909 Unspecified asthma, uncomplicated; Z88.2 Allergy status to sulfonamides; Z88.5 Allergy status to narcotic agent
CPT/HCPCS: 92977; 93005; 85025; 80048; 36415; 85610; 82962; 85730; 70496; 70498; 70450; 71045; 99285; 96374; Q9967; J2997

== ENCOUNTER 2018-10-10 15:25 | Emergency (ER) | payer OTHER ==
--- OUTSIDE RECORDS SUMMARY | 2018-10-10 15:29 | XMS REPORT | Clinical Summary ---
:1950 Author Organization [facility] Address [address] [place] [address] Care Team Providers Name Role Phone Unavailable Primary Care Provider Unavailable Allergies Active Allergy Reactions Severity Noted Date Comments Codeine 10/01/2018 Narcotics make her hallucinate Sulfa (Sulfonamide 10/01/2018 Antibiotics) Medications Medication Sig Dispensed Refills Start Date End Date Status fluticasone Inhale 1 puff by 0 Active propion-salmeterol mouth via inhaler (ADVAIR) 250-50 every 12 (twelve) mcg/dose diskus hours. inhaler levothyroxine Take 75 mcg by 0 Active (SYNTHROID, mouth Every LEVOTHROID) 75 MCG morning on an tablet empty stomach. albuterol Take 2.5 mg by 0 Active (PROVENTIL) 2.5 mg nebulization /3 mL (0.083 %) every 6 (six) nebulizer solution hours as needed for Wheezing. lansoprazole Take 30 mg by 0 Active (PREVACID) 30 MG mouth daily. capsule [id number] Take by mouth. 0 Active b-ginseng Tab ascorbic acid, Take 1,000 mg by 0 Active vitamin C, (VITAMIN mouth daily. C) 1000 MG tablet cholecalciferol, Take 1,000 Units 0 Active vitamin D3, 1,000 by mouth daily. unit capsule aspirin 81 MG Take 81 mg by 0 Active chewable tablet mouth daily. aspirin 81 MG Take 1 tablet (81 30 tablet 4 10/04/2018 10/04/19 Active chewable tablet mg total) by 20 mouth daily. cyanocobalamin 1000 Take 1 tablet 30 tablet 2 10/04/2018 10/04/19 Active MCG tablet (1,000 mcg total) 20 by mouth daily. atorvastatin Take 1 tablet (10 30 tablet 2 10/03/2018 10/03/19 Active (LIPITOR) 10 MG mg total) by 20 tablet mouth nightly. cyanocobalamin 2000 Take 1,000 mcg by 0 10/04/19 Discontinued MCG tablet mouth daily. 19 Active Problems Problem Noted Date Stroke (cerebrum) 10/01/2018 Encounters Date Type Specialty Care Team Description 10/01/2018 - Hospital Encounter Intensive Care Vesna Jay (Primary Dx ); 10/03/2018 MD Arnaud Acute ischemic stroke (HCC); Received tissue plasminogen activator (t-PA) less than 24 hours prior to arrival; Cerebrovascular accident (CVA), unspecified mechanism (HCC) 10/01/2018 Travel after 10/09/2017 Social History Tobacco Use Types Packs/Day Years Used Date Never Smoker Smokeless Tobacco: Never Used Alcohol Use Drinks/Week oz/Week Comments No Alcohol Habits Answer Date Recorded How often do you have a drink containing alcohol? Never 10/01/2018 How many drinks containing alcohol do you have on a typical Not asked day when you are drinking? How often do you have six or more drinks on one occasion? Not asked Sex Assigned at Date Recorded Not on file Job Start Date Occupation Industry Not on file Not on file Not on file Travel History Travel Start Travel End No recent travel history available. Last Filed Vital Signs Vital Sign Reading Time Taken Blood Pressure 109/64 10/03/2018 11:00 AM CDT Pulse 79 10/03/2018 11:00 AM CDT Temperature 36.9 C (98.5 F) 10/03/2018 10:00 AM CDT Respiratory Rate 17 10/03/2018 11:00 AM CDT Oxygen Saturation 94% 10/03/2018 11:00 AM CDT Inhaled Oxygen Concentration 24% 10/01/2018 11:17 PM CDT Weight 92.1 kg (203 lb 0.7 oz) 10/03/2018 4:00 AM CDT Height 165.1 cm (5' 5") 10/01/2018 2:00 PM CDT Body Mass Index 33.79 10/03/2018 4:00 AM CDT Plan of Treatment Not on file Procedures Procedure Name Priority Date/Time Associated Comments Diagnosis REPORT OF PROCEDURE - 10/06/2018 12:00 ENDOSCOPY SCAN PM CDT RHYTHM STRIP - SCAN 10/06/2018 12:00 PM CDT ECHOCARDIOGRAM REPORT - 10/03/2018 9:13 SCAN PM CDT CBC W/PLT COUNT & AUTO Routine 10/03/2018 3:37 Results for this DIFFERENTIAL AM CDT procedure are in the results section. PROTHROMBIN TIME/INR Routine 10/03/2018 3:37 Results for this AM CDT procedure are in the results section. BASIC METABOLIC PANEL Routine 10/03/2018 3:37 Results for this (7) AM CDT procedure are in the results section. CBC W/PLT COUNT & AUTO Routine 10/03/2018 3:37 Results for this DIFFERENTIAL AM CDT procedure are in the results section. 2D ECHO W/ DOPPLER Routine 10/02/2018 5:41 (CW/PW/COLOR) PM CDT 2D ECHO W/ DOPPLER Routine 10/02/2018 4:00 Results for this (CW/PW/COLOR) PM CDT procedure are in the results section. MR BRAIN WITHOUT IV Routine 10/02/2018 11:01 Results for this CONTRAST AM CDT procedure are in the results section. CBC W/PLT COUNT & AUTO Routine 10/02/2018 2:57 Results for this DIFFERENTIAL AM CDT procedure are in the results section. HEPATIC FUNCTION PANEL Routine 10/02/2018 2:57 Results for this AM CDT procedure are in the results section. APTT Routine 10/02/2018 2:57 Results for this AM CDT procedure are in the results section. PROTHROMBIN TIME/INR Routine 10/02/2018 2:57 Results for this AM CDT procedure are in the results section. BASIC METABOLIC PANEL Routine 10/02/2018 2:57 Results for this (7) AM CDT procedure are in the results section. CBC W/PLT COUNT & AUTO Routine 10/02/2018 2:57 Results for this DIFFERENTIAL AM CDT procedure are in the results section. URINALYSIS WITHOUT Routine 10/01/2018 8:52 Results for this MICROSCOPIC PM CDT procedure are in the results section. VITAMIN B12 AND FOLATE Routine 10/01/2018 7:58 Results for this PM CDT procedure are in the results section. TSH/FREE T4 IF Routine 10/01/2018 7:58 Results for this INDICATED PM CDT procedure are in the results section. LIPID PANEL Routine 10/01/2018 7:58 Results for this PM CDT procedure are in the results section. HEMOGLOBIN A1C Routine 10/01/2018 7:58 Results for this PM CDT procedure are in the results section. PROTHROMBIN TIME/INR Routine 10/01/2018 4:09 Results for this PM CDT procedure are in the results section. after 10/09/2017 Results EKG-SCANNED (10/06/2018 12:00 PM CDT) Narrative Performed At RHYTHM STRIP - SCAN (10/06/2018 12:00 PM CDT) Narrative Performed At ECHOCARDIOGRAM REPORT - SCAN (10/03/2018 9:13 PM CDT) Narrative Performed At CBC with platelet count + automated diff (10/03/2018 3:37 AM CDT)Only the most recent of2 resultswithin the time period is included. WBC 7.8 3.5 - 10.5 K/L [facility] RBC 4.50 3.93 - 5.22 M/L [facility] Hemoglobin 12.5 11.2 - 15.7 GM/DL [facility] Hematocrit 39.9 34.1 - 44.9 % [facility] MCV 88.7 79.4 - 94.8 fL [facility] MCH 27.8 25.6 - 32.2 pg [facility] MCHC 31.3 (L) 32.2 - 35.5 GM/DL [facility] RDW 14.3 11.7 - 14.4 % [facility] Platelets 203 150 - 450 K/CU MM [facility] MPV 9.1 (L) 9.4 - 12.3 fL [facility] nRBC 0 0 - 0 /100 WBC [facility] % Neutros 49 % [facility] % Lymphs 39 % [facility] % Monos 8 % [facility] % Eos 2 % [facility] % Baso 0 % [facility] # Neutros 3.86 1.56 - 6.13 K/L [facility] # Lymphs 3.07 1.18 - 3.74 K/L [facility] # Monos 0.64 (H) 0.24 - 0.36 K/L [facility] # Eos 0.17 0.04 - 0.36 K/L [facility] # Baso 0.03 0.01 - 0.08 K/L [facility] Immature Granulocytes-Relative 1 0 - 1 % [facility] Specimen Blood Performing Organization Address [facility] Phone Number [address] [address] [phone] CENTER Prothrombin time/INR (10/03/2018 3:37 AM CDT)Only the most recent of3 resultswithin the time period is included. Protime 15.0 (H) 11.9 - 14.2 seconds [facility] INR 1.2 <=5.9 [facility] Specimen Blood Narrative Performed At Effective 08/30/2018: PT Reference Range [facility] Change New: 11.9-14.2Previous: 11.7-14.7 RECOMMENDED COUMADIN/WARFARIN INR THERAPY RANGES STANDARD DOSE: 2.0-3.0Includes: PROPHYLAXIS for venous thrombosis, systemic embolization; TREATMENT for venous thrombosis and/or pulmonary embolus. HIGH RISK: Target INR is 2.5-3.5 for patients wiht mechanical heart valves. Performing Organization Address City/State/Zipcode Phone Number [facility] [address] [place] [address] CENTER Basic Metabolic Panel (10/03/2018 3:37 AM CDT)Only the most recent of2 resultswithin the time period is included. Sodium 140 136 - 145 meq/L [facility] Potassium 3.8 3.5 - 5.1 meq/L [facility] Chloride 112 (H) 98 - 107 meq/L [facility] CO2 23 22 - 29 meq/L [facility] BUN 13 7 - 21 mg/dL [facility] Creatinine 0.74 0.57 - 1.25 mg/dL [facility] Glucose 117 (H) 70 - 105 mg/dL [facility] Calcium 9.2 8.4 - 10.2 mg/dL [facility] EGFR 78Comment: ESTIMATED GFR IS mL/min/1.73 sq m [facility] NOT ACCURATE CREATININE [facility] CLEARANCE IN PREDICTING GLOMERULAR FILTRATION RATE. ESTIMATED GFR IS NOT APPLICABLE FOR DIALYSIS PATIENTS. Specimen Blood Performing Organization Address City/State/Zipcode Phone Number [facility] [address] [place] [address] CENTER 2D Echo W/Doppler(CW/PW/Color) (10/02/2018 4:00 PM CDT) Ejection Fraction [facility] Specimen Narrative Performed At Transthoracic Echocardiography Report (TTE) [facility] Demographics Patient Name SEPIDEH MENDOSA Date of Study10/02/2018 [id number] Gender Female Visit Number [id number] Race Unknown Accession Number [id number] Date of Birth1950 Referring PhysicianArnaud Jay MD Age68 year(s) SonographerAbed Olegario AnalystAlex ZadeInterpreting Physician Yvette Estrella MD Procedure Type of Study TTE procedure:2DECHO W DOPPLER(CW/PW/COLOR) (Routine) Indications:Stroke . Clinical History HGB 12.4 HCT 39.8 % ASTHMA MV PROLAPSE Contrast Medium: Definity. Amount - 2 ml Height: 65 inches Weight: 91.17 kg (201 lbs) BSA: 1.98 m^2 BMI: 33.45 kg/m^2 HR: 86 bpm BP: 123/68 mmHg Summary Technically difficult study. LV endocardium is partially visualized despite use of IV ultrasound enhancing agent. 1. The left ventricle is chamber size (by PSLAX dimension) is normal (female - LVIDd 3.8-5.2cm) . Normal LV wall thickness. In the limited views, no significant regional wall motion abnormalities noted. The estimated LVEF by qualitative assessment is normal (55-60%) . Diastolic function is indeterminate. 2. In the limited off axis images, the RV appears mildly enlarged . Global RV systolic function is normal . S' 10 cm/sec. 3. LA size is at least moderately enlarged . Grossly the RA is normal in size. IV saline contrast injection was negative for a PFO (patent foramen ovale) at rest and post Valsalva . 4. A trace of tricuspid regurgitation. Unable to estimate peak systolic PA pressure; inadequate TR velocity signal. The estimated RA pressure by IVC dynamics 0-5mmHg . 5. No evidence of pericardial effusion. Previous Study No prior studies available for comparison. Signature Findings Technical Quality: Technically difficult exam. Left Ventricle Technically difficult study. LV endocardium is pa rtially visualized despite use of IV ultrasound en hancing agent. Th e left ventricle is chamber size (by PSLAX di mension) is normal (female - LVIDd 3.8-5.2cm) . No rmal LV wall thickness. In the limited views, no si gnificant regional wall motion abnormalities no pippa. The estimated LVEF by qualitative assessment is normal (55-60%) . Diastolic function is in determinate. Left AtriumImages are suboptimal for accurate measurement of th e volumes. Based on single plane volume me asurement, the LA size is at least moderately en larged . Right VentricleIn the limited off axis images, the RV appears mi ldly enlarged . Global RV systolic function is no rmal . S' 10 cm/sec. Right Atrium RA is not well seen. Likely normal in size. Atrial SeptumIV saline contrast injection was negative for a PFO (p atent foramen ovale) at rest and post Valsalva . Aortic Valve Normal tri-leaflet Aortic Valve. No evidence of aortic stenosis. No evidence of aortic regurgitation. Mitral Valve Mild MV leaflet thickening. Tr erwin mitral regurgitation. Tricuspid ValveA trace of tricuspid regurgitation. Unable to es timate peak systolic PA pressure; inadequate TR ve locity signal. Pulmonic Valve Normal PV structure and function by limited views an d Doppler. AortaAortic root size (SInus of Valsalva diameter) is no rmal . PericardiumNo evidence of pericardial effusion. IVC/SVC/PA/PV/PleuralThe estimated RA pressure by IVC dynamics 0-5mmHg . Chambers/Structures Left Atrium LA Dimension: 3.55 cmLA Area: 25.96 cm^2 LA Volume: 87.62 ml LA Vol. Index: 44 ml/m^2 Left Ventricle LVIDd: 3.88 cm LV Septum Diastolic: 1.1 cm LV PW Diastolic: 1.05 cm LVOT Diameter: 2.19 cm Aorta Ao Root S of Tiki.: 2.86 cm Doppler/Quantitative Measurements LVOT Peak Velocity: 0.94 m/s Peak Gradient: 3.55 mmHg Mean Velocity: 0.61 m/s Mean Gradient: 1.77 mmHg LVOT Diameter: 2.19 cmLVOT VTI: 20.63 cm LVOT Area: 3.77 cm^2LVOT SV:77.67 ml LVOT CO: 6.68 l/min LVOT CI: 3.37 l/min/m^2 Procedure Note Interface, External Ris In - 10/03/2018 10:15 AM CDT Transthoracic Echocardiography Report (TTE) Demographics Patient Name SEPIDEH MENDOSA Date of Study 10/02/2018 Gender Female Visit Number [id number] Race Unknown Accession Number [id number] Room Number 7404 Date of 1950 Referring Physician Arnaud Jay MD Age 68 year(s) [employer] Support Manager Michelle Melvin General Maintenance Mechanic Emiliano Farah Interpreting Physician Yvette Estrella MD Procedure Type of Study TTE procedure:2DECHO W DOPPLER(CW/PW/COLOR) (Routine) Indications:Stroke . Clinical History HGB 12.4 HCT 39.8 % ASTHMA MV PROLAPSE Contrast Medium: Definity. Amount - 2 ml Height: 65 inches Weight: 91.17 kg (201 lbs) BSA: 1.98 m^2 BMI: 33.45 kg/m^2 HR: 86 bpm BP: 123/68 mmHg Summary Technically difficult study. LV endocardium is partially visualized despite use of IV ultrasound enhancing agent. 1. The left ventricle is chamber size (by PSLAX dimension) is normal (female - LVIDd 3.8-5.2cm) . Normal LV wall thickness. In the limited views, no significant regional wall motion abnormalities noted. The estimated LVEF by qualitative assessment is normal (55-60%) . Diastolic function is indeterminate. 2. In the limited off axis images, the RV appears mildly enlarged . Global RV systolic function is normal . S' 10 cm/sec. 3. LA size is at least moderately enlarged . Grossly the RA is normal in size. IV saline contrast injection was negative for a PFO (patent foramen ovale) at rest and post Valsalva . 4. A trace of tricuspid regurgitation. Unable to estimate peak systolic PA pressure; inadequate TR velocity signal. The estimated RA pressure by IVC dynamics 0-5mmHg . 5. No evidence of pericardial effusion. Previous Study No prior studies available for comparison. Signature Findings Technical Quality: Technically difficult exam. Left Ventricle Technically difficult study. LV endocardium is partially visualized despite use of IV ultrasound enhancing agent. The left ventricle is chamber size (by PSLAX dimension) is normal (female - LVIDd 3.8-5.2cm) . Normal LV wall thickness. In the limited views, no significant regional wall motion abnormalities noted. The estimated LVEF by qualitative assessment is normal (55-60%) . Diastolic function is indeterminate. Left Atrium Images are suboptimal for accurate measurement of the volumes. Based on single plane volume measurement, the LA size is at least moderately enlarged . Right Ventricle In the limited off axis images, the RV appears mildly enlarged . Global RV systolic function is normal . S' 10 cm/sec. Right Atrium RA is not well seen. Likely normal in size. Atrial Septum IV saline contrast injection was negative for a PFO (patent foramen ovale) at rest and post Valsalva . Aortic Valve Normal tri-leaflet Aortic Valve. No evidence of aortic stenosis. No evidence of aortic regurgitation. Mitral Valve Mild MV leaflet thickening. Trace mitral regurgitation. Tricuspid Valve A trace of tricuspid regurgitation. Unable to estimate peak systolic PA pressure; inadequate TR velocity signal. Pulmonic Valve Normal PV structure and function by limited views and Doppler. Aorta Aortic root size (SInus of Valsalva diameter) is normal . Pericardium No evidence of pericardial effusion. IVC/SVC/PA/PV/Pleural The estimated RA pressure by IVC dynamics 0-5mmHg . Chambers/Structures Left Atrium LA Dimension: 3.55 cm LA Area: 25.96 cm^2 LA Volume: 87.62 ml LA Vol. Index: 44 ml/m^2 Left Ventricle LVIDd: 3.88 cm LV Septum Diastolic: 1.1 cm LV PW Diastolic: 1.05 cm LVOT Diameter: 2.19 cm Aorta Ao Root S of Tiki.: 2.86 cm Doppler/Quantitative Measurements LVOT Peak Velocity: 0.94 m/s Peak Gradient: 3.55 mmHg Mean Velocity: 0.61 m/s Mean Gradient: 1.77 mmHg LVOT Diameter: 2.19 cm LVOT VTI: 20.63 cm LVOT Area: 3.77 cm^2 LVOT SV:77.67 ml LVOT CO: 6.68 l/min LVOT CI: 3.37 l/min/m^2 Performing Organization Address City/State/Zipcode Phone Number [facility] MR brain without IV contrast (10/02/2018 11:01 AM CDT) Specimen Narrative Performed At FINAL REPORT [place] MRI Brain without contrast Clinical History: Stroke Technique: MRI of the brain utilizing axial T2, FLAIR, GRE, DWI; sagittal and coronal T1-weighted images. Comparisons: None Findings: There is no evidence of acute infarct or hemorrhage. There is mild periventricular and subcortical white matter T2 hyperintensity, which is nonspecific but compatible with chronic microvascular ischemic change. There is generalized parenchymal volume loss without hydrocephalus, midline shift, or apparent mass effect. There are no extra-axial fluid collections. The craniocervical junction is preserved. The major intracranial flow-voids appear patent. IMPRESSION: No evidence of acute infarct, hemorrhage, or hydrocephalus. Signed: Marifer Faustin MD Report Verified Date/Time:10/02/2018 11:23:26 Reading Location: [address] Neuro Reading Room Procedure Note Interface, External Ris In - 10/02/2018 11:25 AM CDT FINAL REPORT MRI Brain without contrast Clinical History: Stroke Technique: MRI of the brain utilizing axial T2, FLAIR, GRE, DWI; sagittal and coronal T1-weighted images. Comparisons: None Findings: There is no evidence of acute infarct or hemorrhage. There is mild periventricular and subcortical white matter T2 hyperintensity, which is nonspecific but compatible with chronic microvascular ischemic change. There is generalized parenchymal volume loss without hydrocephalus, midline shift, or apparent mass effect. There are no extra-axial fluid collections. The craniocervical junction is preserved. The major intracranial flow-voids appear patent. IMPRESSION: No evidence of acute infarct, hemorrhage, or hydrocephalus. Signed: Marifer Faustin MD Report Verified Date/Time: 10/02/2018 11:23:26 Reading Location: [address] Neuro Reading Room Performing Organization Address City/State/Zipcode Phone Number GE RIS aPTT (10/02/2018 2:57 AM CDT) PTT 24.1 22.5 - 36.0 seconds [facility] Specimen Blood Performing Organization Address City/[facility]/Zipcode Phone Number [facility] [address] [place] [address] [phone] CENTER Hepatic function panel (10/02/2018 2:57 AM CDT) Protein, Total 6.0 6.0 - 8.3 gm/dL [facility] Albumin 3.8 3.5 - 5.0 g/dL [facility] Total Bilirubin 0.5 0.2 - 1.2 mg/dL [facility] Bilirubin, Direct 0.2 0.1 - 0.5 mg/dL [facility] Alkaline Phosphatase 51 40 - 150 U/L [facility] AST 16 5 - 34 U/L [facility] ALT 17 6 - 55 U/L [facility] Specimen Blood Performing Organization Address [facility] Phone Number [address] [address] [phone] CENTER Urinalysis without Microscopic (10/01/2018 8:52 PM CDT) Color, UA Light Yellow [facility] Clarity, UA Hazy [facility] Specific Kiron, UA 1.019 1.001 - 1.035 [facility] pH, UA 7.0 5.0 - 8.0 [facility] Protein, UA Negative Negative [facility] Glucose, UA Negative Negative [facility] Ketones, UA Negative Negative [facility] Bilirubin, UA Negative Negative [facility] Blood, UA Negative Negative [facility] Nitrite, UA Positive (A) Negative [facility] Leukocytes, UA Moderate (A) Negative [facility] Urobilinogen, UA 0.2 0.2 - 1.0 mg/dL [facility] Specimen Source [facility] Specimen Urine Performing Organization Address City/[facility] Phone Number [facility] [address] CENTER Vitamin B12 and Folate (10/01/2018 7:58 PM CDT) Vitamin B12 263 213 - 816 pg/mL [facility] Folate 14.1 >=7.0 ng/mL [facility] Specimen Blood Performing Organization Address City/[facility] Phone Number [address] [address] [phone] [place] [facility] TSH/Free T4 If Indicated (10/01/2018 7:58 PM CDT) TSH 2.00 0.35 - 4.94 uIU/mL [facility] Specimen Blood Performing Organization Address [facility] Phone Number [address] [address] [place] [facility] Hemoglobin A1c (10/01/2018 7:58 PM CDT) Hemoglobin A1C 5.5 4.3 - 6.1 % [facility] Specimen Blood Performing Organization Address [facility] Phone Number [address] [address] CENTER Lipid panel (10/01/2018 7:58 PM CDT) Triglycerides 150 mg/dL [facility] Cholesterol 158 mg/dL [facility] HDL 51 mg/dL [facility] LDL Calculated 77 mg/dL [facility] Specimen Blood Narrative Performed At Triglyceride Reference Range: [facility] Low Risk <150 [id number] High Risk 200-499 Very High Risk>=500 Cholesterol Reference Range: Low Risk <200 [id number] High Risk>240 HDL Cholesterol Reference Range: Low Risk >=60 High Risk <40 LDL Cholesterol Reference Range: Optimal<100 Near [id number] Very High >=190 Performing Organization Address City/[facility] Phone Number [facility] [address] [place] [address] CENTER after 10/09/2017 Insurance Payer Benefit Plan / Subscriber ID Type Phone Address Group [employer] - [employer] MEDICARE xxxxxxxx [facility] Contracted [phone] [address] MEDICARE M[employer] HMO POS [id number] [place] [address] Advance Directives Patient has advance care planning documents, and code status on file. For more information, please contact:[facility] [place], [place] [phone] Code Status Date Activated Date Inactivated Comments Full Code 10/01/2018 2:43 PM 10/03/2018 2:07 PM This code status was determined by: Patient
--- OUTSIDE RECORDS SUMMARY | 2018-10-10 15:30 | XMS REPORT ---
:1950 [facility] Address [address] [place] [address] Care Team Providers Name Role Phone KLARISSA OBRIEN Unavailable Unavailable Problems This patient has no known problems. Allergies, Adverse Reactions, Alerts This patient has no known allergies or adverse reactions. Medications This patient has no known medications. Results Test Description Test Time Test Comments Text Results Atomic Results Result Comments BASIC METABOLIC PANEL 2018-10-03 04:11:00 Test Item Value Reference Range Comments SODIUM (BEAKER) (test 140 meq/L 136-145 ndgy=305) POTASSIUM (BEAKER) (test 3.8 meq/L 3.5-5.1 lqyp=589) CHLORIDE (BEAKER) (test 112 meq/L 98-107 dqgq=222) CO2 (BEAKER) (test iskr=762) 23 meq/L 22-29 BLOOD UREA NITROGEN (BEAKER) 13 mg/dL 7-21 (test zjuc=894) CREATININE (BEAKER) (test 0.74 mg/dL 0.57-1.25 mkoa=573) GLUCOSE RANDOM (BEAKER) 117 mg/dL 70-105 (test uoqz=296) CALCIUM (BEAKER) (test 9.2 mg/dL 8.4-10.2 drvb=272) EGFR (BEAKER) (test 78 mL/min/1.73 sq m ESTIMATED GFR IS NOT qxvk=5922) ACCURATE CREATININE CLEARANCE IN PREDICTING GLOMERULAR FILTRATION RATE. ESTIMATED GFR IS NOT APPLICABLE FOR DIALYSIS PATIENTS. PROTHROMBIN TIME/[id number] 04:00:00 Test Item Value Reference Range Comments PROTIME (BEAKER) (test dhid=518) 15.0 seconds 11.9-14.2 INR (BEAKER) (test caln=613) 1.2 <=5.9 Effective 08/30/2018: PT Reference Range ChangeNew: 11.9-14.2 Previous: 11.7- 14.7RECOMMENDED COUMADIN/WARFARIN INR THERAPY RANGESSTANDARD DOSE: 2.0-3.0 Includes: PROPHYLAXIS for venous thrombosis, systemic embolization; TREATMENT for venous thrombosis and/or pulmonary embolus.HIGH RISK: Target INR is2.5-3.5 for patients wiht mechanical heart valves.CBC W/PLT COUNT & AUTO [id number] 03:49:00 Test Item Value Reference Range Comments WHITE BLOOD CELL COUNT (BEAKER) (test lids=399) 7.8 K/ L 3.5-10.5 RED BLOOD CELL COUNT (BEAKER) (test kmsw=282) 4.50 M/ L 3.93-5.22 HEMOGLOBIN (BEAKER) (test evin=017) 12.5 GM/DL 11.2-15.7 HEMATOCRIT (BEAKER) (test trri=977) 39.9 % 34.1-44.9 MEAN CORPUSCULAR VOLUME (BEAKER) (test pacs=483) 88.7 fL 79.4-94.8 MEAN CORPUSCULAR HEMOGLOBIN (BEAKER) (test 27.8 pg 25.6-32.2 xhwh=831) MEAN CORPUSCULAR HEMOGLOBIN CONC (BEAKER) (test 31.3 GM/DL 32.2-35.5 sdwt=792) RED CELL DISTRIBUTION WIDTH (BEAKER) (test 14.3 % 11.7-14.4 ntca=757) PLATELET COUNT (BEAKER) (test egle=667) 203 K/CU MM 150-450 MEAN PLATELET VOLUME (BEAKER) (test opsj=264) 9.1 fL 9.4-12.3 NUCLEATED RED BLOOD CELLS (BEAKER) (test 0 /100 WBC 0-0 uyhv=053) NEUTROPHILS RELATIVE PERCENT (BEAKER) (test 49 % goix=198) LYMPHOCYTES RELATIVE PERCENT (BEAKER) (test 39 % tids=136) MONOCYTES RELATIVE PERCENT (BEAKER) (test 8 % jxck=207) EOSINOPHILS RELATIVE PERCENT (BEAKER) (test 2 % fuek=436) BASOPHILS RELATIVE PERCENT (BEAKER) (test 0 % yxfs=066) NEUTROPHILS ABSOLUTE COUNT (BEAKER) (test 3.86 K/ L 1.56-6.13 ycmg=190) LYMPHOCYTES ABSOLUTE COUNT (BEAKER) (test 3.07 K/ L 1.18-3.74 fdpi=060) MONOCYTES ABSOLUTE COUNT (BEAKER) (test 0.64 K/ L 0.24-0.36 pbgw=086) EOSINOPHILS ABSOLUTE COUNT (BEAKER) (test 0.17 K/ L 0.04-0.36 hiro=962) BASOPHILS ABSOLUTE COUNT (BEAKER) (test 0.03 K/ L 0.01-0.08 xgev=282) IMMATURE GRANULOCYTES-RELATIVE PERCENT (BEAKER) 1 % 0-1 (test kkvw=4432) MR, BRAIN, WITHOUT [id number] 11:23:00FINAL REPORT MRI Brain without contrast Clinical History: [...] appear patent. IMPRESSION: No evidence of acute infarct , hemorrhage, or hydrocephalus. Signed: Winston Faustin MDReport Verified Date/ Time: 10/02/2018 11:23:26 Reading Location: [facility] C0[facility] Neuro Reading Room HEMOGLOBIN [id number] 09:24:00 Test Item Value Reference Range Comments HEMOGLOBIN A1C (BEAKER) (test czqv=047) 5.5 % 4.3-6.1 HEPATIC FUNCTION [id number] 03:32:00 Test Item Value Reference Range Comments TOTAL PROTEIN (BEAKER) (test pmhk=797) 6.0 gm/dL 6.0-8.3 ALBUMIN (BEAKER) (test pnyc=6321) 3.8 g/dL 3.5-5.0 BILIRUBIN TOTAL (BEAKER) (test hgtj=769) 0.5 mg/dL 0.2-1.2 BILIRUBIN DIRECT (BEAKER) (test fmjl=762) 0.2 mg/dL 0.1-0.5 ALKALINE PHOSPHATASE (BEAKER) (test sutc=049) 51 U/L 40-150 AST (SGOT) (BEAKER) (test osjj=343) 16 U/L 5-34 ALT (SGPT) (BEAKER) (test fbpf=927) 17 U/L 6-55 BASIC METABOLIC [id number] 03:32:00 Test Item Value Reference Range Comments SODIUM (BEAKER) (test 141 meq/L 136-145 bgym=864) POTASSIUM (BEAKER) (test 3.9 meq/L 3.5-5.1 dihg=456) CHLORIDE (BEAKER) (test 111 meq/L 98-107 iemy=575) CO2 (BEAKER) (test 23 meq/L 22-29 bnqg=709) BLOOD UREA NITROGEN 11 mg/dL 7-21 (BEAKER) (test mxki=784) CREATININE (BEAKER) (test 0.71 mg/dL 0.57-1.25 mkya=220) GLUCOSE RANDOM (BEAKER) 91 mg/dL 70-105 (test pyat=542) CALCIUM (BEAKER) (test 9.1 mg/dL 8.4-10.2 dqov=502) EGFR (BEAKER) (test 81 mL/min/1.73 sq m ESTIMATED GFR IS NOT qfoj=4091) ACCURATE CREATININE CLEARANCE IN PREDICTING GLOMERULAR FILTRATION RATE. ESTIMATED GFR IS NOT APPLICABLE FOR DIALYSIS PATIENTS. [id number] 03:23:00 Test Item Value Reference Range Comments PARTIAL THROMBOPLASTIN TIME (BEAKER) (test 24.1 seconds 22.5-36.0 efun=083) PROTHROMBIN TIME/[id number] 03:22:00 Test Item Value Reference Range Comments PROTIME (BEAKER) (test dthx=964) 13.7 seconds 11.9-14.2 INR (BEAKER) (test ztvf=435) 1.1 <=5.9 Effective 08/30/2018: PT Reference Range ChangeNew: 11.9-14.2 Previous: 11.7- 14.7RECOMMENDED COUMADIN/WARFARIN INR THERAPY RANGESSTANDARD DOSE: 2.0-3.0 Includes: PROPHYLAXIS for venous thrombosis, systemic embolization; TREATMENT for venous thrombosis and/or pulmonary embolus.HIGH RISK: Target INR is2.5-3.5 for patients wiht mechanical heart valves.CBC W/PLT COUNT & AUTO [id number] 03:06:00 Test Item Value Reference Range Comments WHITE BLOOD CELL COUNT (BEAKER) (test prbc=776) 8.0 K/ L 3.5-10.5 RED BLOOD CELL COUNT (BEAKER) (test cchv=538) 4.50 M/ L 3.93-5.22 HEMOGLOBIN (BEAKER) (test rvzj=253) 12.4 GM/DL 11.2-15.7 HEMATOCRIT (BEAKER) (test quhz=528) 39.8 % 34.1-44.9 MEAN CORPUSCULAR VOLUME (BEAKER) (test ubov=180) 88.4 fL 79.4-94.8 MEAN CORPUSCULAR HEMOGLOBIN (BEAKER) (test 27.6 pg 25.6-32.2 lofh=484) MEAN CORPUSCULAR HEMOGLOBIN CONC (BEAKER) (test 31.2 GM/DL 32.2-35.5 ssrp=579) RED CELL DISTRIBUTION WIDTH (BEAKER) (test 14.4 % 11.7-14.4 trvy=535) PLATELET COUNT (BEAKER) (test asst=161) 210 K/CU MM 150-450 MEAN PLATELET VOLUME (BEAKER) (test uctq=082) 9.0 fL 9.4-12.3 NUCLEATED RED BLOOD CELLS (BEAKER) (test 0 /100 WBC 0-0 jvvg=790) NEUTROPHILS RELATIVE PERCENT (BEAKER) (test 48 % bpfh=869) LYMPHOCYTES RELATIVE PERCENT (BEAKER) (test 41 % yapa=834) MONOCYTES RELATIVE PERCENT (BEAKER) (test 9 % wifd=950) EOSINOPHILS RELATIVE PERCENT (BEAKER) (test 2 % qtce=196) BASOPHILS RELATIVE PERCENT (BEAKER) (test 0 % ildf=767) NEUTROPHILS ABSOLUTE COUNT (BEAKER) (test 3.85 K/ L 1.56-6.13 nrtz=778) LYMPHOCYTES ABSOLUTE COUNT (BEAKER) (test 3.25 K/ L 1.18-3.74 irnv=700) MONOCYTES ABSOLUTE COUNT (BEAKER) (test 0.68 K/ L 0.24-0.36 fwjn=474) EOSINOPHILS ABSOLUTE COUNT (BEAKER) (test 0.18 K/ L 0.04-0.36 ytww=125) BASOPHILS ABSOLUTE COUNT (BEAKER) (test 0.03 K/ L 0.01-0.08 xopf=795) IMMATURE GRANULOCYTES-RELATIVE PERCENT (BEAKER) 0 % 0-1 (test qbom=9492) VITAMIN B12 AND [id number] 21:54:00 Test Item Value Reference Range Comments VITAMIN B12 (BEAKER) (test yxoa=528) 263 pg/mL 213-816 FOLATE (BEAKER) (test hgyq=845) 14.1 ng/mL >=7.0 URINALYSIS WITHOUT [id number] 21:50:00 Test Item Value Reference Range Comments COLOR (BEAKER) (test clvb=052) Light Yellow CLARITY (BEAKER) (test aegu=404) Hazy SPECIFIC GRAVITY UA (BEAKER) (test zmig=993) 1.019 1.001-1.035 PH UA (BEAKER) (test drfc=436) 7.0 5.0-8.0 PROTEIN UA (BEAKER) (test qbmm=854) Negative Negative GLUCOSE UA (BEAKER) (test viec=171) Negative Negative KETONES UA (BEAKER) (test evad=284) Negative Negative BILIRUBIN UA (BEAKER) (test musa=538) Negative Negative BLOOD UA (BEAKER) (test nlhv=444) Negative Negative NITRITE UA (BEAKER) (test twed=917) Positive Negative LEUKOCYTE ESTERASE UA (BEAKER) (test jxof=230) Moderate Negative UROBILINOGEN UA (BEAKER) (test fvji=178) 0.2 mg/dL 0.2-1.0 SOURCE(BEAKER) (test yavy=4310) TSH/FREE T4 IF [id number] 20:51:00 Test Item Value Reference Range Comments THYROID STIMULATING HORMONE (BEAKER) (test 2.00 uIU/mL 0.35-4.94 auwr=666) LIPID [id number] 20:30:00 Test Item Value Reference Range Comments TRIGLYCERIDES (BEAKER) (test ppya=067) 150 mg/dL CHOLESTEROL (BEAKER) (test kdld=780) 158 mg/dL HDL CHOLESTEROL (BEAKER) (test mxfp=684) 51 mg/dL LDL CHOLESTEROL CALCULATED (BEAKER) (test 77 mg/dL nziu=900) Triglyceride Reference Range: Low Risk <150 Borderline 150- 199 High Risk 200-499 Very High Risk >=500Cholesterol Reference Range: Low Risk <200 Borderline 200-239 High Risk > 240HDL Cholesterol Reference Range: Low Risk >=60 High Risk <40LDL Cholesterol Reference Range: Optimal <100 Near Optimal 100-129 Borderline 130-159 High 160-189 Very High >=190PROTHROMBIN [id number] 16:47:00 Test Item Value Reference Range Comments PROTIME (BEAKER) (test hdgc=203) 14.0 seconds 11.9-14.2 INR (BEAKER) (test xddn=759) 1.1 <=5.9 Effective 08/30/2018: PT Reference Range ChangeNew: 11.9-14.2 Previous: 11.7- 14.7RECOMMENDED COUMADIN/WARFARIN INR THERAPY RANGESSTANDARD DOSE: 2.0-3.0 Includes: PROPHYLAXIS for venous thrombosis, systemic embolization; TREATMENT for venous thrombosis and/or pulmonary embolus.HIGH RISK: Target INR is2.5-3.5 for patients wiht mechanical heart valves.
--- NOTE | 2018-10-10 15:54 | RAD REPORT ---
EXAM DESCRIPTION: CT - Ct Stroke Brain Wo Cont - 10/10/2018 3:43 pm CLINICAL HISTORY: Left-sided weakness, aphasia, recent stroke diagnosis, history of tPA administrati on approximately 8 days earlier CLINICAL HISTORY: CT head October 01 TECHNIQUE: Axial 5 millimeter thick images of the head were obtained without IV contrast. All CT scans are performed using dose optimization technique as appropriate and may include automated exposure control or mA/KV adjustment according to patient size. FINDINGS: No intracranial hemorrhage, mass, or cerebral edema. No acute infarction identifiable. No cortical edema or sulcal effacement. Minimal atrophy and chronic ischemic changes are present matchin g comparison. Ventricles are in proportion. Mendoza matter-white matter differentiation is preserved. Visualized portions of the mastoid air cells, paranasal sinuses, and orbits are unremarkable. No glob e or orbital content abnormality. Findings telephoned to the referring clinician 1548 hours. IMPRESSION: No CT evidence of acute intracranial process. Intracranial findings are similar to the October 01 study.
[2018-10-10 15:58] LABS: Absolute Lymphocytes (CBC) 2.5 K/uL (0.7-4.9); Eosinophils % 1.4 % (0-4.4); Hematocrit 43.8 % (36.0-45.0); Lymphocytes % 33.9 % (15.3-44.8); MPV 8.1 fL (7.6-11.3); Monocytes % 9.8 % (3.3-12.3); RBC Red Blood Cell Count 5.11 M/uL (3.86-4.86)
[2018-10-10 16:00] LABS: Protime INR 0.93
[2018-10-10 16:11] LABS: BUN Blood Urea Nitrogen 12 mg/dL (7-18); Bicarbonate 27 mmol/L (21-32); Glucose Level 103 mg/dL (74-106); Magnesium 2.6 mg/dL (1.8-2.4); Potassium 3.7 mmol/L (3.5-5.1); Sodium Level 144 mmol/L (136-145); Troponin (Emerg Dept Use Only) < 0.02 ng/mL (0.0-0.045)
--- NOTE | 2018-10-10 16:28 | RAD REPORT ---
EXAM DESCRIPTION: RAD - Chest Single View - 10/10/2018 4:07 pm CLINICAL HISTORY: Stroke protocol chest film COMPARISON: October 01 TECHNIQUE: AP portable chest image was obtained 1556 hours . FINDINGS: No pulmonary edema or focal lung parenchymal process. Lung markings match the comparison. Heart and vasculature are normal. No measurable pleural effusion and no pneumothorax. No acute bony a bnormality seen. No acute aortic findings suspected. IMPRESSION: No acute cardiopulmonary process. No significant interval change.
--- NOTE | 2018-10-10 16:35 | ER ---
Nurse's Notes [facility] Name: Sepideh Mendosa Age: 68 yrs Sex: Female : 1950 Arrival Date: 10/10/2018 Time: 15:26 Bed 7 Private MD: Aly Johnson Diagnosis: Cerebral infarction Presentation: 10/10 15:47 Presenting complaint: states: she was recently discharged from [facility] and rv had TPA. speech problem progressive since yesterday. Transition of care: patient was not received from another setting of care. Onset of symptoms. Onset of symptoms was October 10, 2018 at 08:00. Risk Assessment: Do you want to hurt yourself or someone else? Patient reports no desire to harm self or others. Initial Sepsis Screen: Does the patient meet any 2 criteria? No. Patient's initial sepsis screen is negative. Does the patient have a suspected source of infection? No. Patient's initial sepsis screen is negative. Care prior to arrival: None. 15:47 Method Of Arrival: Wheelchair rv 15:47 Acuity: EDDY 2 rv 16:24 An acute neurological deficit is present. The charge nurse has been notified. The rv patient has been moved to a treatment area. Pre-hospital glucose is not applicable to this patient. Triage Assessment: 18:49 The onset of the patients symptoms was October 10, 2018 at 08:00. General: Appears in no rv apparent distress. comfortable, Behavior is calm, cooperative. 18:50 Neuro: Reports weakness in left leg. rv Stroke Activation: Symptom onset > 6 hours Physician: Stroke Attending; Name: GIANNI LYNN; Notified At: ; Arrived At: Physician: Chief Stroke Resident; Name: ; Notified At: ; Arrived At: Physician: Stroke Resident; Name: ; Notified At: ; Arrived At: Physician: ED Attending; Name: ; Notified At: ; Arrived At: Physician: ED Resident; Name: ; Notified At: ; Arrived At: Historical: - Allergies: 16:12 Codeine; rv 16:12 narcotics make me hallucinate; rv 16:12 Sulfa (Sulfonamide Antibiotics); rv - PMHx: 16:12 Asthma; HYPOGLYCEMIA; mitral valve prolapse; TIA; rv - PSHx: 16:12 Hysterectomy; Mastectomy; rv - Immunization history:: Adult Immunizations up to date. - Social history:: Smoking status: Patient/guardian denies using tobacco. - Ebola Screening: : No symptoms or risks identified at this time. Screenin:18 Abuse screen: Denies threats or abuse. Denies injuries from another. Nutritional rv screening: No deficits noted. Tuberculosis screening: No symptoms or risk factors identified. Fall Risk None identified. Assessment: 16:13 VAN Scoring:. The patient has not been NPO before screening. The patient is alert, and rv able to follow commands. The patient exhibits slurred or garbled speech. Provider notified of the indication for Speech Therapy consult. The patient is exhibiting difficulty speaking. Provider notified of the indication for Speech Therapy consult. The patient does not exhibit difficulty understanding words. The patient is able to swallow own secretions with no drooling or need for suction. Patient tolerated one teaspoon of water. No drooling, immediate coughing, gurgling, or clearing of the throat was noted. The patient tolerated 90mL of water. No drooling, immediate coughing, gurgling, or clearing of the throat was noted. The patient passed the bedside swallow screening. Oral medications may be given as ordered. Contact Physician for further diet orders. Provider notified of bedside swallow screening results: Gianni LYNN. General: Appears in no apparent distress. comfortable, Behavior is calm, cooperative. Pain: Denies pain. Neuro: Level of Consciousness is awake, alert, obeys commands, Oriented to person, place, time, situation. Cardiovascular: Patient's skin is warm and dry. Rhythm is regular. Respiratory: Airway is patent. GI: No signs and/or symptoms were reported involving the gastrointestinal system. : No signs and/or symptoms were reported regarding the genitourinary system. EENT: No signs and/or symptoms were reported regarding the EENT system. Derm: Skin is intact. Musculoskeletal: No signs and/or symptoms reported regarding the musculoskeletal system. 18:00 Reassessment: Patient appears in no apparent distress at this time. Patient and/or rv family updated on plan of care and expected duration. Pain level reassessed. Patient is alert, oriented x 3, equal unlabored respirations, skin warm/dry/pink. 18:49 T-PA (Activase) Screening: Contraindications: Other: recent tpa. rv Vital Signs: 15:53 BP 139 / 72; Pulse 76; Resp 17; Temp 98.2; Pulse Ox 100% on R/A; Weight 86.18 kg; rv Height 5 ft. 5 in. (165.10 cm); Pain 0/10; 17:00 BP 136 / 70; Pulse 75; Resp 17; Pulse Ox 100% on R/A; rv 18:00 BP 140 / 70; Pulse 77; Resp 16; Pulse Ox 100% ; rv 18:30 BP 134 / 71; Pulse 74; Resp 15; Temp 98; Pulse Ox 99% on R/A; rv 15:53 Body Mass Index 31.62 (86.18 kg, 165.10 cm) rv NIH Stroke Scale Scores: 16:13 NIHSS Score: 5 rv 16:43 NIHSS Score: 6 jr8 ED Course: 15:26 Patient arrived in ED. mr 15:26 Aly Johnson MD is Private Physician. mr 15:27 Gianni Anderson PA is PHCP. jr8 15:27 Michael Torres MD is Attending Physician. jr8 15:28 Krish Adkins, LEONCIO is Primary Nurse. rv 15:46 CT Stroke Brain w/o Contrast In Process Unspecified. EDMS 15:53 Triage completed. rv 16:00 Inserted saline lock: 22 gauge in right forearm, using aseptic technique. Blood rv collected. 16:12 Stroke CXR 1 View In Process Unspecified. EDMS 16:18 Patient has correct armband on for positive identification. Placed in gown. Bed in low rv position. Call light in reach. Side rails up X2. Adult w/ patient. quality assurance monitor chassis on. Pulse ox on. NIBP on. 17:20 CT completed. Patient tolerated procedure well. Patient moved to CT. Patient moved back ar from CT. 17:22 CT Head Angio In Process Unspecified. EDMS 17:22 CT Neck Angio In Process Unspecified. EDMS 18:48 No provider procedures requiring assistance completed. Patient transferred, IV remains rv in place. 18:50 Patient placed in the treatment room, on a stretcher, on pulse oximetry, Patient rv notified of wait time. Administered Medications: No medications were administered Point of Care Testing: Blood Glucose: 15:53 Blood Glucose: 106 mg/dL; rv Ranges: Outcome: 16:34 ER care complete, transfer ordered by . jr8 18:49 Transferred by ground EMS to [facility], [facility], Transfer form completed. rv X-rays sent w/ patient. 18:49 Condition: stable 18:49 Instructed on the need for transfer. 18:51 Patient left the ED. rv NIH Stroke Scale - NIH Stroke Score Date: 10/10/2018 Time: 16:13 Total Score = 5 1a. Level of Consciousness (LOC) - 0(Alert) 1b. Level of Consciousness (LOC) (Year \T\ Age) - 0(Both) 1c. LOC Commands (Open \T\ Closes Eyes/Cdl B Driver) - 0(Both) 2. Best Gaze (Lateral Gaze Paresis) - 0(Normal) 3. Visual Field Loss - 0(No visual loss) 4. Facial Palsy - 2(Partial paralysis) 5a. Left Arm: Motor (10-second hold) - 0(No drift) 5b. Right Arm: Motor (10-second hold) - 0(No drift) 6a. Left Leg: Motor (5-second hold - always test supine) - 3(No effort against gravity) 6b. Right Leg: Motor (5-second hold - always test supine) - 0(No drift) 7. Limb Ataxia (finger/nose \T\ heel/orlando - test with eyes open) - 0(Absent) 8. Sensory Loss (pinprick arms/legs/face) - 0(Normal) 9. Best Language: Aphasia (description/naming/reading) - 0(No aphasia) 10. Dysarthria (speech clarity - read or repeat words) - 0(Normal) 11. Extinction and Inattention (visual/tactile/auditory/spatial/personal) - 0(No abnormality) Initials: rv NIH Stroke Scale - NIH Stroke Score Date: 10/10/2018 Time: 16:43 Total Score = 6 1a. Level of Consciousness (LOC) - 0(Alert) 1b. Level of Consciousness (LOC) (Year \T\ Age) - 0(Both) 1c. LOC Commands (Open \T\ Closes Eyes/Cdl B Driver) - 0(Both) 2. Best Gaze (Lateral Gaze Paresis) - 0(Normal) 3. Visual Field Loss - 0(No visual loss) 4. Facial Palsy - 0(Normal) 5a. Left Arm: Motor (10-second hold) - 0(No drift) 5b. Right Arm: Motor (10-second hold) - 0(No drift) 6a. Left Leg: Motor (5-second hold - always test supine) - 3(No effort against gravity) 6b. Right Leg: Motor (5-second hold - always test supine) - 0(No drift) 7. Limb Ataxia (finger/nose \T\ heel/orlando - test with eyes open) - 2(Present in two limbs) 8. Sensory Loss (pinprick arms/legs/face) - 0(Normal) 9. Best Language: Aphasia (description/naming/reading) - 0(No aphasia) 10. Dysarthria (speech clarity - read or repeat words) - 1(Mild to Moderate) 11. Extinction and Inattention (visual/tactile/auditory/spatial/personal) - 0(No abnormality) Initials: nereida Signatures: Dispatcher [employer] Palak Ring, SHANE Archer jr8 Calvin Bond Ronaldo, RN RN rv
--- NOTE | 2018-10-10 16:35 | EDPHYS ---
Physician Documentation [facility] Name: Sepideh Mendosa Age: 68 yrs Sex: Female : 1950 Arrival Date: 10/10/2018 Time: 15:26 Bed 7 Private MD: Aly Johnson ED Physician Michael Torres HPI: 10/10 15:34 This 68 yrs old Female presents to ER via Unassigned with complaints of S/S jr8 of Possible Stroke. 15:34 The patient's problem is reported as dysphasia, slurred speech, slow speech, weakness, jr8 in the left upper extremity, in the left lower extremity. Onset: The symptoms/episode began/occurred gradually, over the last 24 hours. Worse within last 2 hours. Duration: This was a single incident, The episode is continuous. Context: the episode(s) was witnessed, by family. The symptoms are alleviated by nothing. The symptoms are aggravated by standing, walking. Associated signs and symptoms: The patient has no apparent associated signs or symptoms. Severity of symptoms: At their worst the symptoms were moderate in the emergency department the symptoms are unchanged. Patient's baseline: Neuro: alert and fully oriented, Motor: no deficits, Ambulation: walks without assistance, Speech: normal. The patient has experienced a previous episode. The patient has been recently seen by a physician:. Family stated that patient was just released last week from [facility] for TIA. Was given tPA here and transferred for acute stroke symptoms. Family stated that the tPA had resolved her symptoms. Stated that she was base line again upon d/c from hospital. Yesterday started to have mild speech delay that continued through today but became much worse and now having weakness . Historical: - Allergies: 16:12 Codeine; rv 16:12 narcotics make me hallucinate; rv 16:12 Sulfa (Sulfonamide Antibiotics); rv - PMHx: 16:12 Asthma; HYPOGLYCEMIA; mitral valve prolapse; TIA; rv - PSHx: 16:12 Hysterectomy; Mastectomy; rv - Immunization history:: Adult Immunizations up to date. - Social history:: Smoking status: Patient/guardian denies using tobacco. - Ebola Screening: : No symptoms or risks identified at this time. ROS: 15:34 Eyes: Negative for injury, pain, redness, and discharge, ENT: Negative for injury, jr8 pain, and discharge, Neck: Negative for injury, pain, and swelling, Cardiovascular: Negative for chest pain, palpitations, and edema, Respiratory: Negative for shortness of breath, cough, wheezing, and pleuritic chest pain, Abdomen/GI: Negative for abdominal pain, nausea, vomiting, diarrhea, and constipation, Back: Negative for injury and pain, MS/Extremity: Negative for injury and deformity, Skin: Negative for injury, rash, and discoloration. 15:34 Neuro: Positive for speech changes, weakness. Exam: 15:34 Radiologist reports: No acute blood, mass, or ischemic lesion noted jr8 15:34 Head/Face: Normocephalic, atraumatic. Eyes: Pupils equal round and reactive to light, extra-ocular motions intact. Lids and lashes normal. Conjunctiva and sclera are non-icteric and not injected. Cornea within normal limits. Periorbital areas with no swelling, redness, or edema. ENT: Nares patent. No nasal discharge, no septal abnormalities noted. Tympanic membranes are normal and external auditory canals are clear. Oropharynx with no redness, swelling, or masses, exudates, or evidence of obstruction, uvula midline. Mucous membranes moist. Neck: Trachea midline, no thyromegaly or masses palpated, and no cervical lymphadenopathy. Supple, full range of motion without nuchal rigidity, or vertebral point tenderness. No Meningismus. Cardiovascular: Regular rate and rhythm with a normal S1 and S2. No gallops, murmurs, or rubs. Normal PMI, no JVD. No pulse deficits. Respiratory: Lungs have equal breath sounds bilaterally, clear to auscultation and percussion. No rales, rhonchi or wheezes noted. No increased work of breathing, no retractions or nasal flaring. Abdomen/GI: Soft, non-tender, with normal bowel sounds. No distension or tympany. No guarding or rebound. No evidence of tenderness throughout. Back: No spinal tenderness. No costovertebral tenderness. Full range of motion. Skin: Warm, dry with normal turgor. Normal color with no rashes, no lesions, and no evidence of cellulitis. MS/ Extremity: Pulses equal, no cyanosis. Neurovascular intact. Full, normal range of motion. 15:34 Neuro: Orientation: to person, place, time \T\ situation. Mentation: is normal, Memory: is normal, immediate memory is intact, recent memory is intact, remote memory is intact, Cranial nerves: CN I not tested, CN II- XII are normal as tested, visual chaudhry are intact. extraocular movements are intact, Facial palsy and sensory deficits are absent. Nystagmus is absent. Speech is dysarthric, slurred, Tongue strength is weak on movement to right, Cerebellar function: dysmetria is noted on the left, the patient is unable to track left heel to right rolando, Motor: moves all fours, Strength is 1/5 in the left leg, Sensation: no obvious gross deficits, Gait: is unsteady, seizure activity, is not displayed by the patient, Abnormal movements: there are no abnormal movements. 15:57 ECG was reviewed by the Attending Physician. [facility] Vital Signs: 15:53 BP 139 / 72; Pulse 76; Resp 17; Temp 98.2; Pulse Ox 100% on R/A; Weight 86.18 kg; rv Height 5 ft. 5 in. (165.10 cm); Pain 0/10; 17:00 BP 136 / 70; Pulse 75; Resp 17; Pulse Ox 100% on R/A; rv 18:00 BP 140 / 70; Pulse 77; Resp 16; Pulse Ox 100% ; rv 18:30 BP 134 / 71; Pulse 74; Resp 15; Temp 98; Pulse Ox 99% on R/A; rv 15:53 Body Mass Index 31.62 (86.18 kg, 165.10 cm) rv NIH Stroke Scale Scores: 16:13 NIHSS Score: 5 rv 16:43 NIHSS Score: 6 [facility] MDM: 15:27 Patient medically screened. [facility] 16:24 Data reviewed: vital signs, nurses notes, lab test result(s), EKG, radiologic studies, jr8 CT scan, plain films. Data interpreted: Pulse oximetry: on room air is 100 %. Interpretation: normal. Counseling: I had a detailed discussion with the patient and/or guardian regarding: the historical points, exam findings, and any diagnostic results supporting the discharge/admit diagnosis, lab results, radiology results, the need to transfer to another facility. 16:33 ED course: Dr. Jay consulted at [facility] and accepted patient. Wants CT angio 8 Head and neck before leaving which we told him we would gladly do. 16:50 ED course: Patient not only out of tPA time window since symptoms started yesterday but jr8 patient also had tPA last week. Both contraindicated at this point for tPA. Discussed this with patient and family and are good with this . 10/10 15:27 Order name: Magnesium; Complete Time: 16:14 10/10 15:27 Order name: Troponin (emerg Dept Use Only); Complete Time: 16:14 10/10 15:27 Order name: Basic Metabolic Panel; Complete Time: 16:14 10/10 15:27 Order name: CBC with Diff; Complete Time: 16:14 10/10 15:27 Order name: Protime (+inr); Complete Time: 16:14 10/10 15:27 Order name: Ptt, Activated; Complete Time: 16:14 10/10 15:27 Order name: CT Stroke Brain w/o Contrast; Complete Time: 16:28 10/10 15:27 Order name: Stroke CXR 1 View; Complete Time: 16:41 10/10 15:27 Order name: EKG; Complete Time: 15:40 10/10 15:27 Order name: Accucheck; Complete Time: 16:24 10/10 15:27 Order name: Cardiac monitoring; Complete Time: 16:25 10/10 16:32 Order name: CT Head Angio; Complete Time: 18:09 10/10 16:32 Order name: CT Neck Angio; Complete Time: 18:09 10/10 16:59 Order name: Glucose, Ancillary Testing; Complete Time: 17:06 EDME 10/10 15:27 Order name: EKG - Nurse/Tech; Complete Time: 16:25 10/10 15:27 Order name: IV Saline Lock; Complete Time: 16:25 10/10 15:27 Order name: Labs collected and sent; Complete Time: 16:25 10/10 15:27 Order name: NPO; Complete Time: 16:25 10/10 15:27 Order name: O2 Per Protocol; Complete Time: 16:25 10/10 15:27 Order name: O2 Sat Monitoring; Complete Time: 16:25 10/10 15:27 Order name: Stroke Swallow Screen; Complete Time: 16:25 jr8 EC:57 Rate is 78 beats/min. Rhythm is regular, Normal Sinus Rhythm. QRS [place] is Normal. [place] jr8 interval is normal at 198 msec. QRS interval is normal at 92 msec. QT interval is normal at 460 msec. No Q waves. T waves are Normal. No ST changes noted. Clinical impression: Normal ECG and No evidence of ischemia. Interpreted by me. Reviewed by me. Administered Medications: No medications were administered Point of Care Testing: Blood Glucose: 15:53 Blood Glucose: 106 mg/dL; rv Ranges: Critical Glucose Levels:Adult <50 mg/dl or >400 mg/dl <40 mg/dl or >180 mg/dl Disposition: 10/11 16:31 Co-signature as Attending Physician, Michael Torres MD I agree with the assessment and janie plan of care. Disposition: 10/10/18 16:34 Transfer ordered to [facility]. Diagnosis is Cerebral infarction. - Reason for transfer: Higher level of care. - Accepting physician is Dr. Karimi. - Condition is Fair. - Problem is new. - Symptoms are unchanged. NIH Stroke Scale - NIH Stroke Score Date: 10/10/2018 Time: 16:13 Total Score = 5 1a. Level of Consciousness (LOC) - 0(Alert) 1b. Level of Consciousness (LOC) (Year \T\ Age) - 0(Both) 1c. LOC Commands (Open \T\ Closes Eyes/[employer]) - 0(Both) 2. Best Gaze (Lateral Gaze Paresis) - 0(Normal) 3. Visual Field Loss - 0(No visual loss) 4. Facial Palsy - 2(Partial paralysis) 5a. Left Arm: Motor (10-second hold) - 0(No drift) 5b. Right Arm: Motor (10-second hold) - 0(No drift) 6a. Left Leg: Motor (5-second hold - always test supine) - 3(No effort against gravity) 6b. Right Leg: Motor (5-second hold - always test supine) - 0(No drift) 7. Limb Ataxia (finger/nose \T\ heel/or[place] - test with eyes open) - 0(Absent) 8. Sensory Loss (pinprick arms/legs/face) - 0(Normal) 9. Best Language: Aphasia (description/naming/reading) - 0(No aphasia) 10. Dysarthria (speech clarity - read or repeat words) - 0(Normal) 11. Extinction and Inattention (visual/tactile/auditory/spatial/personal) - 0(No abnormality) Initials: josiane NIH Stroke Scale - NIH Stroke Score Date: 10/10/2018 Time: 16:43 Total Score = 6 1a. Level of Consciousness (LOC) - 0(Alert) 1b. Level of Consciousness (LOC) (Year \T\ Age) - 0(Both) 1c. LOC Commands (Open \T\ Closes Eyes/[employer]) - 0(Both) 2. Best Gaze (Lateral Gaze Paresis) - 0(Normal) 3. Visual Field Loss - 0(No visual loss) 4. Facial Palsy - 0(Normal) 5a. Left Arm: Motor (10-second hold) - 0(No drift) 5b. Right Arm: Motor (10-second hold) - 0(No drift) 6a. Left Leg: Motor (5-second hold - always test supine) - 3(No effort against gravity) 6b. Right Leg: Motor (5-second hold - always test supine) - 0(No drift) 7. Limb Ataxia (finger/nose \T\ heel/orlando - test with eyes open) - 2(Present in two limbs) 8. Sensory Loss (pinprick arms/legs/face) - 0(Normal) 9. Best Language: Aphasia (description/naming/reading) - 0(No aphasia) 10. Dysarthria (speech clarity - read or repeat words) - 1(Mild to Moderate) 11. Extinction and Inattention (visual/tactile/auditory/spatial/personal) - 0(No abnormality) Initials: nereida Signatures: Dispatcher [employer] Michael Sumner MD MD cha Roszak, Josh, PA PA jr8 Krish Adkins RN RN rv Corrections: (The following items were deleted from the chart) 10/10 16:44 15:34 NIHSS Score: 6 nereida jrJean 16:49 16:34 10/10/2018 16:34 Transfer ordered to [facility]. jr8 Diagnosis is Cerebral infarction. Reason for transfer: Higher level of care. Accepting physician is Dr. Jay. Condition is Fair. Problem is new. Symptoms are unchanged. nereida 18:51 16:49 10/10/2018 16:34 Transfer ordered to [facility]. rv Diagnosis is Cerebral infarction. Reason for transfer: Higher level of care. Accepting physician is Dr. Karimi. Condition is Fair. Problem is new. Symptoms are unchanged. jr8
--- NOTE | 2018-10-10 18:05 | RAD REPORT ---
EXAM DESCRIPTION: CT - Neck Angio - 10/10/2018 5:19 pm CLINICAL HISTORY: Left-sided weakness, stroke-like symptoms TECHNIQUE: During dynamic enhancement using nonionic IV contrast, axial 2 mm thick images of the nec k were obtained. Sagittal and axial reconstruction images were generated using maximum intensity proj ection protocol and reviewed. All CT scans are performed using dose optimization technique as appropriate and may include automated exposure control or mA/KV adjustment according to patient size. COMPARISON: CT head same date FINDINGS: No aneurysm or vascular malformation identified. No carotid or vertebral dissection. No aortic arch or great vessel origin abnormality seen. Vertebral artery origins unremarkable as well . Right vertebral artery is dominant with the left vertebral artery terminating at the posterior infe rior cerebellar artery. No stenosis, vasculitis or other significant carotid artery finding. No focal abnormality of either vertebral artery. Basilar artery is normal. IMPRESSION: Negative CT angio neck examination for acute or significant finding.
--- NOTE | 2018-10-10 18:05 | RAD REPORT ---
EXAM DESCRIPTION: CT - Head angio - 10/10/2018 5:19 pm CLINICAL HISTORY: Left-sided weakness, stroke symptoms TECHNIQUE: During dynamic enhancement using nonionic IV contrast, axial 1 millimeter thick images of the head were obtained. Sagittal and axial reconstruction images were generated and reviewed. All CT scans are performed using dose optimization technique as appropriate and may include automated exposure control or mA/KV adjustment according to patient size. FINDINGS: No aneurysm or vascular malformation identified. Major venous sinuses are patent. No stenosis, named branch occlusion, vasculitis or other significant vascular finding identifiable. Right vertebral artery is dominant. Left vertebral artery appears to terminate at the posterior infer ior cerebellar artery. Technical difficulties precluded dictating report at the time of the study. Findings were telephoned the referring clinician. IMPRESSION: Negative CT angio head examination for acute or significant finding.
[2018-10-10 19:14] VITALS: BP 134/71; TEMP 98; O2SAT 99
--- NOTE | 2018-10-11 09:58 | EKG ---
Test Date: 2018-10-10 Test Time: 15:49:15 Nurse Substance Abuse: DESIREE MEASUREMENT RESULTS: Intervals: Rate: 78 [place]: 198 QRSD: 92 QT: 404 QTc: 460 [place]: P: 60 [place]: 198 QRS: 53 T: 39 INTERPRETIVE STATEMENTS: Normal sinus rhythm Normal ECG Compared to ECG 10/01/2018 09:46:50 First degree AV block no longer present Electronically Signed On 10-11-18 09:57:11 CDT by Camden Gomes
== END 2018-10-10 18:51 | disposition short-term general hospital (02) ==
LOC: ER 15:25
DX: I63.9 Cerebral infarction, unspecified (principal); R29.706 NIHSS score 6; Z88.2 Allergy status to sulfonamides; Z88.5 Allergy status to narcotic agent
CPT/HCPCS: 93005; 85025; 80048; 36415; 83735; 85610; 82962; 85730; 84484; 70496; 70498; 70450; 71045; Q9967; 99285

== ENCOUNTER 2021-10-01 11:08 | Emergency (ER) | payer OTHER ==
[2021-10-01] MEDS ORDERED: NA CHLORIDE 0.9% 1,000 ML ONE (11:26)
[2021-10-01] MEDS ORDERED: FOLIC ACID 5 MG/ML VIAL ONE (11:26)
--- NOTE | 2021-10-01 11:30 | RAD REPORT ---
EXAM DESCRIPTION: CT - Ct Stroke Brain Wo Cont - 10/01/2021 11:24 am CLINICAL HISTORY: Neuro deficit, acute, stroke suspected COMPARISON: Head angio dated 10/10/2018; Ct Stroke Brain Wo Cont dated 10/10/2018 TECHNIQUE: All CT scans are performed using dose optimization technique as appropriate and may inclu de automated exposure control or mA/KV adjustment according to patient size. FINDINGS: No intracranial hemorrhage, hydrocephalus or extra-axial fluid collection.No areas of brai n edema or evidence of midline shift. The paranasal sinuses and mastoids are clear. The calvarium is intact. IMPRESSION: No acute intracranial abnormality. Findings relayed to Dr. Torres by Dr. Melchor at 1125 on 10/01/21
--- NOTE | 2021-10-01 11:38 | ER ---
Nurse's Notes [facility] Name: Sepideh Mendosa Age: 71 yrs Sex: Female : 1950 Arrival Date: 10/01/2021 Time: 11:10 Bed 6 Private MD: Diagnosis: Cerebral infarction, unspecified-ACUTE;Aphasia Presentation: 10/01 11:14 Chief complaint: Spouse and/or significant other states: pt started having a headache iw at 1030 then 10 minutes later had difficulty speaking , hx of CVA in 2019 with similar symptoms, not currently on blood thinners. Coronavirus screen: At this time, the client does not indicate any symptoms associated with coronavirus-19. Ebola Screen: Patient negative for fever greater than or equal to 101.5 degrees Fahrenheit, and additional compatible Ebola Virus Disease symptoms Patient denies exposure to infectious person. Patient denies travel to an Ebola-affected area in the 21 days before illness onset. No symptoms or risks identified at this time. 11:14 Method Of Arrival: Wheelchair iw 11:14 Acuity: EDDY 2 iw 11:18 Initial Sepsis Screen: Does the patient meet any 2 criteria? No. Patient's initial iw sepsis screen is negative. Does the patient have a suspected source of infection? No. Patient's initial sepsis screen is negative. Risk Assessment: Do you want to hurt yourself or someone else? Patient reports no desire to harm self or others. Onset of symptoms was October 01, 2021 at 10:30. Stroke Activation: Physician: Stroke Attending; Name: N/A; Notified At: 11:15; Arrived At: N/A Physician: Chief Stroke Resident; Name: N/A; Notified At: 11:15; Arrived At: N/A Physician: Stroke Resident; Name: N/A; Notified At: 11:15; Arrived At: N/A Physician: ED Attending; Name: Dr. Torres; Notified At: 11:15; Arrived At: 11:15 Physician: ED Resident; Name: N/A; Notified At: 11:15; Arrived At: N/A Stroke Activation: Symptom onset < 3 hours Physician: Stroke Attending; Name: ; Notified At: ; Arrived At: Physician: Chief Stroke Resident; Name: ; Notified At: ; Arrived At: Physician: Stroke Resident; Name: ; Notified At: ; Arrived At: Physician: ED Attending; Name: ; Notified At: ; Arrived At: Physician: ED Resident; Name: ; Notified At: ; Arrived At: Historical: - Allergies: 11:19 Codeine; iw 11:19 narcotics make me hallucinate; iw 11:19 Sulfa (Sulfonamide Antibiotics); iw - PMHx: 11:19 Asthma; HYPOGLYCEMIA; mitral valve prolapse; TIA; CVA; iw - Family history:: not pertinent. Screenin:30 Abuse screen: Denies threats or abuse. Denies injuries from another. Nutritional 6 screening: No deficits noted. Tuberculosis screening: No symptoms or risk factors identified. Fall Risk Secondary diagnosis (15 points) CVA, IV access (20 points). Gait- Weak (10 pts.). Mental Status-. Assessment: 11:20 VAN Scoring: Arm Drift: Minor drift [facility] 11:20 Pain: Denies pain. [facility] 11:20 T-PA (Activase) Screening: Indications: Definite evidence of stroke, ischemic, embolic, jh6 or hypertensive: Yes. Treatment will start within 4.5 hours onset of symptoms: Yes. No evidence of intracranial hemorrhage or CT of head and no evidence of peripheral hemorrhage or recent CVA: Yes. Consent for thrombolytic therapy: Yes. Neuro: Hendricks Agitation-Sedation Scale (RASS): 0 - Alert and Calm Level of Consciousness is awake, alert, Oriented to person, place, time, situation, Assessment Nurse are equal bilaterally Moves all extremities. Weakness in left leg(s) Speech with expressive aphasia noted, Pupils are PERRLA, Pupil Size: 2MM Reports headache in left frontal area. 11:20 General: Appears distressed, Behavior is cooperative, anxious. 6 12:42 Reassessment: SEE TPA FLOW SHEET. 6 Vital Signs: 11:30 BP 115 / 55; Pulse 81; Resp 20; Temp 97.8; Pulse Ox 98% ; Weight 77.11 kg; bp 11:30 BP 115 / 66; Pulse 78; Resp 18; Pulse Ox 100% ; Pain 0/10; jh6 11:45 BP 122 / 66; Pulse 80; Resp 17; Pulse Ox 100% ; Pain 0/10; jh6 12:00 BP 123 / 67; Pulse 75; Resp 18; Pulse Ox 100% ; Pain 0/10; [facility] NIH Stroke Scale Scores: 11:20 NIHSS Score: 5 jh6 11:29 NIHSS Score: 5 [facility] ED Course: 11:10 Patient arrived in ED. as 11:11 Michael Torres MD is Attending Physician. janie 11:15 Kevin Tristan, RN is Primary Nurse. bp 11:18 Triage completed. iw 11:19 Arm band placed on. iw 11:26 CT Stroke Brain w/o Contrast In Process Unspecified. EDMS 11:[address] Torres with Ben Watkins Rn from the [facility]/. 11:35 Inserted saline lock: 22 gauge in right wrist, using aseptic technique. 6 11:38 Inserted saline lock: 22 gauge in left wrist, using aseptic technique. [facility] 11:[address] Medel the neurologist maxillofacial surgeon with Dr. Torres for patient transfer eb consultation. 11:53 administrative approval given by Ben Watkins Rn/ patient has been accepted to [place] [id number] bed 12/ Dr. Patrick Medel had accepted the patient in transfer/ Report to be called to [phone]. 12:16 XRAY Chest (1 view) In Process Unspecified. EDMS 12:28 CT Head Angio In Process Unspecified. EDMS 12:28 CT Neck Angio In Process Unspecified. EDMS Administered Medications: 11:40 Drug: NS 0.9% 1000 ml Route: IV; Rate: 1 bolus; Site: right wrist; [facility] 11:40 Drug: foLIC Acid 1 mg Route: IVPB; Site: right wrist; [facility] 11:45 Drug: TNK FOR STROKE - Tenecteplase 0.25 mg/kg {Co-Signature: (Nelly Welch 6 RN).} Route: IV; Rate: per protocol; Site: right wrist; Outcome: 11:38 ER care complete, transfer ordered by . [facility] 13:30 Transferred by ground EMS Note: [facility] 13:30 Condition: improved 13:30 Discharge instructions given to 13:30 Instructed on the need for transfer. 13:31 Patient left the ED. jh6 NIH Stroke Scale - NIH Stroke Score Date: 10/01/2021 Time: 11:20 Total Score = 5 1a. Level of Consciousness (LOC) - 0(Alert) 1b. Level of Consciousness (LOC) (Month \T\ Age) - 0(Both) 1c. LOC Commands (Open \T\ Closes Eyes/[employer]) - 0(Both) 2. Best Gaze (Lateral Gaze Paresis) - 0(Normal) 3. Visual Field Loss - 0(No visual loss) 4. Facial Palsy - 1(Minor Paralysis) 5a. Left Arm: Motor (10-second hold) - 0(No drift) 5b. Right Arm: Motor (10-second hold) - 0(No drift) 6a. Left Leg: Motor (5-second hold - always test supine) - 1(Drift) 6b. Right Leg: Motor (5-second hold - always test supine) - 0(No drift) 7. Limb Ataxia (finger/nose \T\ heel/[place] - test with eyes open) - 0(Absent) 8. Sensory Loss (pinprick arms/legs/face) - 0(Normal) 9. Best Language: Aphasia (description/naming/reading) - 1(Mild to moderate aphasia) 10. Dysarthria (speech clarity - read or repeat words) - 2(Severe) 11. Extinction and Inattention (visual/tactile/auditory/spatial/personal) - 0(No abnormality) Initials: [facility] NIH Stroke Scale - NIH Stroke Score Date: 10/01/2021 Time: 11:29 Total Score = 5 1a. Level of Consciousness (LOC) - 0(Alert) 1b. Level of Consciousness (LOC) (Month \T\ Age) - 0(Both) 1c. LOC Commands (Open \T\ Closes Eyes/[employer]) - 0(Both) 2. Best Gaze (Lateral Gaze Paresis) - 0(Normal) 3. Visual Field Loss - 0(No visual loss) 4. Facial Palsy - 0(Normal) 5a. Left Arm: Motor (10-second hold) - 0(No drift) 5b. Right Arm: Motor (10-second hold) - 0(No drift) 6a. Left Leg: Motor (5-second hold - always test supine) - 1(Drift) 6b. Right Leg: Motor (5-second hold - always test supine) - 0(No drift) 7. Limb Ataxia (finger/nose \T\ heel/[place] - test with eyes open) - 1(Present in one limb) 8. Sensory Loss (pinprick arms/legs/face) - 0(Normal) 9. Best Language: Aphasia (description/naming/reading) - 2(Severe aphasia) 10. Dysarthria (speech clarity - read or repeat words) - 1(Mild to Moderate) 11. Extinction and Inattention (visual/tactile/auditory/spatial/personal) - 0(No abnormality) Initials: janie Signatures: Dispatcher [employer] EDMichael Humphries MD MD cha Martinez, Amelia as Williams, Irene, RN RN iw Kevin Tristan RN RN Jayla Russell Jennifer RN RN jh6 Nelly Welch RN iw
--- NOTE | 2021-10-01 11:38 | EDPHYS ---
Physician Documentation [facility] Name: Sepideh Mendosa Age: 71 yrs Sex: Female : 1950 Arrival Date: 10/01/2021 Time: 11:10 Bed 6 Private MD: ED Physician Michael Torres HPI: 10/01 11:29 This 71 yrs old Female presents to ER via Wheelchair with complaints of S/S janie of Possible Stroke. 11:29 The patient's problem is reported as dysphasia, slurred speech, incoherent speech, janie weakness, in the left upper extremity, in the left lower extremity. Onset: The symptoms/episode began/occurred at 10:30. Duration: The episode is continuous. Context: the episode(s) was witnessed, by family, . The symptoms are alleviated by nothing. The symptoms are aggravated by nothing. Associated signs and symptoms: Pertinent positives: headache. Severity of symptoms: At their worst the symptoms were moderate in the emergency department the symptoms are unchanged. Patient's baseline: Neuro: alert and fully oriented. The patient has experienced a previous episode, approximately 3 years ago. Historical: - Allergies: 11:19 Codeine; iw 11:19 narcotics make me hallucinate; iw 11:19 Sulfa (Sulfonamide Antibiotics); iw - PMHx: 11:19 Asthma; HYPOGLYCEMIA; mitral valve prolapse; TIA; CVA; iw - Family history:: not pertinent. ROS: 11:29 Constitutional: Negative for fever, chills, and weight loss, Eyes: Negative for injury, janie pain, redness, and discharge, ENT: Negative for injury, pain, and discharge, Neck: Negative for injury, pain, and swelling, Cardiovascular: Negative for chest pain, palpitations, and edema, Respiratory: Negative for shortness of breath, cough, wheezing, and pleuritic chest pain, Abdomen/GI: Negative for abdominal pain, nausea, vomiting, diarrhea, and constipation, Back: Negative for injury and pain, : Negative for injury, bleeding, discharge, and swelling, MS/Extremity: Negative for injury and deformity, Skin: Negative for injury, rash, and discoloration, Psych: Negative for depression, anxiety, suicide ideation, homicidal ideation, and hallucinations, Allergy/Immunology: Negative for hives, rash, and allergies, Endocrine: Negative for neck swelling, polydipsia, polyuria, polyphagia, and marked weight changes, Hematologic/Lymphatic: Negative for swollen nodes, abnormal bleeding, and unusual bruising. 11:29 Neuro: Positive for headache, speech changes, weakness, of the left arm and left leg. Exam: : Radiologist reports: NEGATIVE janie : Constitutional: This is a well developed, well nourished patient who is awake, alert, and in no acute distress. Head/Face: Normocephalic, atraumatic. Eyes: Pupils equal round and reactive to light, extra-ocular motions intact. Lids and lashes normal. Conjunctiva and sclera are non-icteric and not injected. Cornea within normal limits. Periorbital areas with no swelling, redness, or edema. ENT: Nares patent. No nasal discharge, no septal abnormalities noted. Tympanic membranes are normal and external auditory canals are clear. Oropharynx with no redness, swelling, or masses, exudates, or evidence of obstruction, uvula midline. Mucous membranes moist. Neck: Trachea midline, no thyromegaly or masses palpated, and no cervical lymphadenopathy. Supple, full range of motion without nuchal rigidity, or vertebral point tenderness. No Meningismus. Chest/axilla: Normal chest wall appearance and motion. Nontender with no deformity. No lesions are appreciated. Cardiovascular: Regular rate and rhythm with a normal S1 and S2. No gallops, murmurs, or rubs. Normal PMI, no JVD. No pulse deficits. Respiratory: Lungs have equal breath sounds bilaterally, clear to auscultation and percussion. No rales, rhonchi or wheezes noted. No increased work of breathing, no retractions or nasal flaring. Abdomen/GI: Soft, non-tender, with normal bowel sounds. No distension or tympany. No guarding or rebound. No evidence of tenderness throughout. Back: No spinal tenderness. No costovertebral tenderness. Full range of motion. Female : Normal external genitalia. Skin: Warm, dry with normal turgor. Normal color with no rashes, no lesions, and no evidence of cellulitis. Psych: Awake, alert, with orientation to person, place and time. Behavior, mood, and affect are within normal limits. 11:29 Musculoskeletal/extremity: ROM: limited active range of motion, in the left arm and left leg, Circulation is intact in all extremities. Sensation intact. Compartment Syndrome exam of affected extremity: is normal. DVT Exam: No signs of deep vein thrombosis. no pain, no swelling, no tenderness, negative Homans' sign noted on exam, no appreciated bluish discoloration, no erythema, no increased warmth. 11:45 ECG was reviewed by the Attending Physician. [facility] Vital Signs: 11:30 BP 115 / 55; Pulse 81; Resp 20; Temp 97.8; Pulse Ox 98% ; Weight 77.11 kg; bp 11:30 BP 115 / 66; Pulse 78; Resp 18; Pulse Ox 100% ; Pain 0/10; 6 11:45 BP 122 / 66; Pulse 80; Resp 17; Pulse Ox 100% ; Pain 0/10; [facility] 12:00 BP 123 / 67; Pulse 75; Resp 18; Pulse Ox 100% ; Pain 0/10; 6 NIH Stroke Scale Scores: 11:20 NIHSS Score: 5 [facility] 11:29 NIHSS Score: 5 [facility] MDM: 11:11 Patient medically screened. [facility] 11:36 Differential diagnosis: CVA, TIA, metabolic disorder. Data reviewed: vital signs, [facility] nurses notes, lab test result(s), EKG, radiologic studies, CT scan, plain films. Data interpreted: color television console monitor: rate is 81 beats/min, rhythm is regular, Pulse oximetry: on room air is 98 %. Test interpretation: by ED physician or midlevel provider: ECG, plain radiologic studies. Counseling: I had a detailed discussion with the patient and/or guardian regarding: the historical points, exam findings, and any diagnostic results supporting the discharge/admit diagnosis, lab results, radiology results, the need to transfer to another facility, for higher level of care, [facility] does not immediately have the required specialist. 10/01 11:14 Order name: Basic Metabolic Panel; Complete Time: 12:13 [facility] 10/01 11:14 Order name: CBC with Diff; Complete Time: 12:13 [facility] 10/01 11:14 Order name: LFT's; Complete Time: 12:13 [facility] 10/01 11:14 Order name: Magnesium; Complete Time: 12:13 [facility] 10/01 11:14 Order name: NT PRO-BNP; Complete Time: 12:13 [facility] 10/01 11:14 Order name: PT-INR; Complete Time: 12:13 [facility] 10/01 11:14 Order name: Troponin HS; Complete Time: 12:13 [facility] 10/01 11:14 Order name: XRAY Chest (1 view) [facility] 10/01 11:14 Order name: CT Stroke Brain w/o Contrast; Complete Time: 11:36 [facility] 10/01 11:14 Order name: CT Head Angio [facility] 10/01 11:14 Order name: CT Neck Angio [facility] 10/01 11:38 Order name: SARS-COV-2 RT PCR (Document "Date of Onset" if Symptomatic) [facility] 10/01 11:58 Order name: Glucose, Ancillary Testing; Complete Time: 12:13 [facility] 10/01 12:05 Order name: Urine Dipstick-Ancillary; Complete Time: 12:13 [facility] 10/01 11:14 Order name: EKG; Complete Time: 11:15 [facility] 10/01 11:14 Order name: Cardiac monitoring; Complete Time: 12:43 [facility] 10/01 11:14 Order name: EKG - Nurse/Tech; Complete Time: 12:43 [facility] 10/01 11:14 Order name: IV Saline Lock; Complete Time: 12:43 [facility] 10/01 11:14 Order name: Labs collected and sent; Complete Time: 12:43 [facility] 10/01 11:14 Order name: O2 Per Protocol; Complete Time: 12:43 [facility] 10/01 11:14 Order name: O2 Sat Monitoring; Complete Time: 12:43 [facility] 10/01 11:14 Order name: Urine Dipstick-Ancillary (obtain specimen) [facility] EC:45 Rate is 79 beats/min. QRS [place] is Normal. [place] interval is prolonged at 214 msec. QRS janie interval is normal. QT interval is normal. No Q waves. T waves are Normal. No ST changes noted. Clinical impression: NSR w/ Non-specific ST/T Changes, 1st degree heart block, and No evidence of ischemia. Interpreted by me. Reviewed by me. Administered Medications: 11:40 Drug: NS 0.9% 1000 ml Route: IV; Rate: 1 bolus; Site: right wrist; 6 11:40 Drug: foLIC Acid 1 mg Route: IVPB; Site: right wrist; 6 11:45 Drug: TNK FOR STROKE - Tenecteplase 0.25 mg/kg {Co-Signature: iw (Nelly Welch 6 RN).} Route: IV; Rate: per protocol; Site: right wrist; Disposition Summary: 10/01/21 11:38 Transfer Ordered Transfer Location: [facility] janie Reason: Higher level of care janie Condition: Serious janie Problem: new janie Symptoms: have improved janie Accepting Physician: TO NICU(10/01/21 13:31) [email or web address] Diagnosis - Cerebral infarction, unspecified - ACUTE janie - Aphasia janie Forms: - Medication Reconciliation Form janie - SBAR form janie NIH Stroke Scale - NIH Stroke Score Date: 10/01/2021 Time: 11:20 Total Score = 5 1a. Level of Consciousness (LOC) - 0(Alert) 1b. Level of Consciousness (LOC) (Month \\T\\ Age) - 0(Both) 1c. LOC Commands (Open \\T\\ Closes Eyes/[employer] Continuous Process) - 0(Both) 2. Best Gaze (Lateral Gaze Paresis) - 0(Normal) 3. Visual Field Loss - 0(No visual loss) 4. Facial Palsy - 1(Minor Paralysis) 5a. Left Arm: Motor (10-second hold) - 0(No drift) 5b. Right Arm: Motor (10-second hold) - 0(No drift) 6a. Left Leg: Motor (5-second hold - always test supine) - 1(Drift) 6b. Right Leg: Motor (5-second hold - always test supine) - 0(No drift) 7. Limb Ataxia (finger/nose \\T\\ heel/[place] - test with eyes open) - 0(Absent) 8. Sensory Loss (pinprick arms/legs/face) - 0(Normal) 9. Best Language: Aphasia (description/naming/reading) - 1(Mild to moderate aphasia) 10. Dysarthria (speech clarity - read or repeat words) - 2(Severe) 11. Extinction and Inattention (visual/tactile/auditory/spatial/personal) - 0(No abnormality) Initials: jh NIH Stroke Scale - NIH Stroke Score Date: 10/01/2021 Time: 11:29 Total Score = 5 1a. Level of Consciousness (LOC) - 0(Alert) 1b. Level of Consciousness (LOC) (Month \\T\\ Age) - 0(Both) 1c. LOC Commands (Open \\T\\ Closes Eyes/Tanner [employer] Drum Continuous Process) - 0(Both) 2. Best Gaze (Lateral Gaze Paresis) - 0(Normal) 3. Visual Field Loss - 0(No visual loss) 4. Facial Palsy - 0(Normal) 5a. Left Arm: Motor (10-second hold) - 0(No drift) 5b. Right Arm: Motor (10-second hold) - 0(No drift) 6a. Left Leg: Motor (5-second hold - always test supine) - 1(Drift) 6b. Right Leg: Motor (5-second hold - always test supine) - 0(No drift) 7. Limb Ataxia (finger/nose \\T\\ heel/[place] - test with eyes open) - 1(Present in one limb) 8. Sensory Loss (pinprick arms/legs/face) - 0(Normal) 9. Best Language: Aphasia (description/naming/reading) - 2(Severe aphasia) 10. Dysarthria (speech clarity - read or repeat words) - 1(Mild to Moderate) 11. Extinction and Inattention (visual/tactile/auditory/spatial/personal) - 0(No abnormality) Initials: [facility] Signatures: Dispatcher [employer] Michael Sumner MD MD cha Williams, Irene, RN RN iw Hastedt, Jennifer, RN RN jh6 Nelly joe Corrections: (The following items were deleted from the chart) 13:31 11:38 TO [facility] janie [facility]
[2021-10-01] MEDS ORDERED: TENECTEPLASE 50 MG/10 ML VIAL IV ONE (11:42)
[2021-10-01 11:44] LABS: Hematocrit 40.3 % (36.0-45.0); Lymphocytes % 31.2 % (15.3-44.8); MPV 7.3 fL (7.6-11.3)
[2021-10-01 11:49] LABS: Protime INR 1.01
[2021-10-01 12:05] LABS: Urine Blood Negative (Negative); Urine Glucose Negative (Negative); Urine Protein Negative (Negative)
[2021-10-01 12:08] LABS: Albumin 3.8 g/dL (3.4-5.0); Bilirubin Direct 0.2 mg/dL (0-0.2); Bilirubin Total 0.7 mg/dL (0.2-1.0); Magnesium 2.2 mg/dL (1.8-2.4); Potassium 3.8 mmol/L (3.5-5.1); Protein, Total 6.8 g/dL (6.4-8.2); Troponin High Sensitivity 4.6 pg/mL (<58.9)
--- NOTE | 2021-10-01 12:27 | RAD REPORT ---
EXAM DESCRIPTION: RAD - Chest Single View - 10/01/2021 12:15 pm CLINICAL HISTORY: COUGH COMPARISON: Chest Pa And Lat (2 Views) dated 02/14/2019; Chest Pa And Lat (2 Views) dated 10/31/2018; Chest Single View dated 10/10/2018; Chest Single View dated 10/01/2018 FINDINGS: Lines: None. Lungs: No evidence of edema or pneumonia. Pleural: No significant pleural effusions or pneumothorax. Cardiac: The heart size is within normal limits. Bones: No acute fractures. Other: IMPRESSION: No acute cardiopulmonary disease.
--- NOTE | 2021-10-01 12:39 | RAD REPORT ---
EXAM DESCRIPTION: CT - Head angio - 10/01/2021 12:26 pm CLINICAL HISTORY: Neuro deficit, acute, stroke suspected Headache, drowsiness COMPARISON: Ct Stroke Brain Wo Cont dated 10/01/2021; Head angio dated 10/10/2018 TECHNIQUE: CT angiography of the head was performed with MIPs. All CT scans are performed using dose optimization technique as appropriate and may include automated exposure control or mA/KV adjustment according to patient size. FINDINGS: No evidence of aneurysm is detected. No flow-limiting stenosis or vascular malformation id entified. Antegrade flow is seen in the vertebral arteries. Right vertebral artery is dominant. The visualized dural venous sinuses are patent. IMPRESSION: No significant flow abnormality is detected.
--- NOTE | 2021-10-01 12:43 | RAD REPORT ---
EXAM DESCRIPTION: CT - Neck Angio - 10/01/2021 12:27 pm CLINICAL HISTORY: Neuro deficit, acute, stroke suspected Headache, drowsiness COMPARISON: Neck Angio dated 10/10/2018; Neck Angio dated 10/01/2018 TECHNIQUE: CT angiography of the neck vessels was performed with MIPs. All CT scans are performed using dose optimization technique as appropriate and may include automated exposure control or mA/KV adjustment according to patient size. FINDINGS: A left aortic arch is identified with normal three vessel configuration of the great vesse ls. No significant flow abnormality is seen of the common carotid bilaterally. No significant stenosis is identified involving the cervical segments of both internal carotid arteri es. Right-sided dominant vertebral artery. IMPRESSION: No significant flow abnormality of the neck vessels is identified.
[2021-10-01 13:40] VITALS: TEMP 97.8; O2SAT 100
[2021-10-01 13:48] VITALS: BP 123/67
--- NOTE | 2021-10-02 09:51 | EKG ---
Test Date: 2021-10-01 Test Time: 11:30:18 Cab Driver: SWATI MEASUREMENT RESULTS: Intervals: Rate: 79 WA: 214 QRSD: 92 QT: 398 QTc: 456 [place]: P: 71 WA: 214 QRS: 84 T: 44 INTERPRETIVE STATEMENTS: Sinus rhythm with 1st degree AV block Otherwise normal ECG Compared to ECG 10/10/2018 15:49:15 First degree AV block now present Electronically Signed On 10-02-21 09:48:46 CDT by Shlomo Eckert
== END 2021-10-01 13:31 | disposition short-term general hospital (02) ==
LOC: ER 11:08
DX: I63.9 Cerebral infarction, unspecified (principal); R29.705 NIHSS score 5; Z86.73 Personal history of transient ischemic attack (TIA), and cerebral infarction without residual deficits; Z88.2 Allergy status to sulfonamides; Z88.5 Allergy status to narcotic agent; Z20.822 Contact with and (suspected) exposure to COVID-19
CPT/HCPCS: 92977; 93005; 85025; 80048; 36415; 83735; 85610; 82947; 80076; 81003; 84484; 83880; 70496; 70498; 70450; 71045; 96375; 96374; 99285; U0003; Q9967; J3101; J7030

== ENCOUNTER 2022-05-26 13:37 | Emergency (ER) | payer OTHER ==
--- OUTSIDE RECORDS SUMMARY | 2022-05-26 13:42 | XMS REPORT | Continuity of Care Document ---
:1950 Author Organization [facility] t Address [address] [place] [address] Care Team Providers Name Role Phone Patricia Mercado Attending Clinician Unavailable Toribio Medel MD Attending Clinician Unavailable TORIBIO MEDEL Attending Clinician Unavailable Funmi Bynum MD Attending Clinician FUNMI BYNUM Attending Clinician Unavailable Doctor Unassigned, [place] Attending Clinician Unavailable ROB OLIVER Attending Clinician Unavailable KLARISSA OBRIEN Attending Clinician Unavailable TORIBIO MEDEL Admitting Clinician Unavailable ROB OLIVER Admitting Clinician Unavailable KLARISSA OBRIEN Admitting Clinician Unavailable Payers Payer Name Policy Type Policy Number Effective Date Expiration Date S ource Problems Condition Condition Condition Status Onset Resolution Last Treating Co mments Source Name Details Category Date Date Treatment Clinician Date Hx of TIA Hx of TIA Disease Active [facility] ([facility]ient (transient 7-01 [facility] ischemic ischemic 00:00: Medica l attack) attack) 00 Center and stroke and stroke Asthma Asthma Disease Active [facility] Mitral Mitral Disease Active [facility] valve valve 7-01 [facility] prolapse prolapse 00:00: Medica l 00 Center TIA TIA Disease Active [facility] (transient (transient 7-10 [facility] ischemic ischemic 00:00: Medica l attack) attack) 00 Center Stroke Stroke Disease Active [facility] (cerebrum) (cerebrum) 6-30 [facility] 00:00: Medical 00 Center No known No known Disease Unive rs active active ity of problems problems [facility] Aphasia Aphasia Disease Resolve 2021-10-03 2021-10-[address] [facility] 7- 00:00:00 10:13:41 [facility] 00:[facility]: Medical 00 [place] Anxiety Anxiety Disease Resolve 2021-10-03 2021-10-[address] [facility] 7- 00:00:00 10:13:44 [facility] 00:[facility]: Medical 00 [place] Right Right Disease Resolve 2021-10-03 2021-10-[address] middle middle d 6-30 00:00:00 10:13:34 [facility] cerebral cerebral 00:00: Medica l artery artery 00 Center stroke stroke Allergies, Adverse Reactions, Alerts Allergy Allergy Status Severity Reaction(s) Onset Inactive Treating Comm ents Source Name Type Date Date Clinician Codeine Propensi Active Narcotics [facility] 6-30 [facility] her [facility] adverse 00:00: hallucina Medica l reaction 00 Center s Sulfa Propensi Active [facility] (Sulfona ty to 630 [facility] mide adverse 00:00: Medical Antibiot reaction 00 Center ics) s CODEINE Allergy Active [facility] 6-30 00:00: 00 SULFA Allergy Active [facility] (SULFONA 6-30 MIDE 00:00: ANTIBIOT 00 ICS) Codeine Propensi Active Hallucinatio 2017- U nivers ty to ns 8-27 ity of adverse 00:00: [place] reaction 00 Medical s Branch Hydrocod Propensi Active Hallucinatio Univers one ty to ns 8-27 ity of adverse 00:00: [place] reaction 00 Medical s Branch Sulfa Propensi Active Hives Univers (Sulfona ty to 8-27 ity of mide adverse 00:00: [place] Antibiot reaction 00 Medica l ics) s Branch CODEINE DRUG Active Hallucinates 2017- Uni vers INGREDI 8- ity of 00:00: [place] 00 Medical Branch HYDROCOD DRUG Active Hallucinates Un brandi ONE INGREDI - ity of 00:00: [place] 00 Medical Branch SULFA Drug Active Hives Univers (SULFONA Class 8-27 ity of MIDE 00:00: [place] ANTIBIOT 00 Medical ICS) Branch No Known DA Active U [facility] 6[facility]20 Clear Int[facility]era 00:00: [facility] Social History Social Habit Start Date Stop Date Quantity Comments Source History SDOH [facility] Alcohol Std Medical Cente r Drinks History SDOH [facility] Alcohol Binge Medical Carlos Alberto ter History SDOH [facility] Alcohol Comment Medical C enter Exposure to Not sure [facility]-CoV-2 [place] [facility] (event) Branch Alcohol intake 2021-10-01 2021-10-[address] [facility] [address] [facility] es 00:00:00 00:00:00 non-drinker of Medical Ce nter alcohol (finding) Tobacco use and 2018-10-01 2018-10-[address] [facility] exposure 00:00:00 00:00:00 Medical Center History SDOH 2018-10-01 2018-10-[address] [facility] Alcohol Frequency 00:00:00 00:00:00 [facility] Sex Assigned At [address] [address] [facility]ima kes 00:00:00 00:00:00 Medical Center Smoking Status Start Date Stop Date Source Unknown if ever smoked [facility] Never smoker [facility] ical [place] Medications Ordered Filled Start Stop Current Ordering Indication Dosage Frequency Signature Comments Components Source Medication Medication Date Date Medication? Clinician (SIG) Name Name cyanocobala 2022- No 1000ug QD Take [address] min, 10-04 tablet [facility] vitamin 00:00: 23:59 (1,000 mcg Med ical B-12, 1000 00 :00 total) by Cent er MCG tablet mouth daily. cyanocobala 2022- No 1000ug QD Take [address] min, 10-04 tablet [facility] vitamin 00:00: 23:59 (1,000 mcg Med ical B-12, 1000 00 :00 total) by Cent er MCG tablet mouth daily. cyanocobala 2022- No 1000ug QD Take [address] min, 10-04 tablet [facility] vitamin 00:00: 23:59 (1,000 mcg Med ical B-12, 1000 00 :00 total) by Cent er MCG tablet mouth daily. cyanocobala 2022- No 1000ug QD Take [address] min, 10-04 tablet [facility] vitamin 00:00: 23:59 (1,000 mcg Med ical B-12, 1000 00 :00 total) by Cent er MCG tablet mouth daily. cyanocobala 0 2022- No 1000ug QD Take [address] min, 10-04 tablet [facility] vitamin 00:00: 23:59 (1,000 mcg Med ical B-12, 1000 00 :00 total) by Cent er MCG tablet mouth daily. mv-iron-min Yes Take by [facility] -ginkgo 7- mouth. [facility] b-ginseng 13:01: Medical Tab 11 [place] ascorbic Yes 1000mg QD Take 1,[address] acid, 7-02 mg by [facility] vitamin C, 13:01: mouth Medica l (VITAMIN C) 11 daily. [place] 1000 MG tablet cholecalcif Yes 1000U QD Take 1,[address] [facility], 7-02 Units by [employer] vitamin D3, 13:01: mouth Medic al 1,000 unit 11 daily. [place] capsule rosuvastati Yes 20mg QD Take [address] n (CRESTOR) 7-02 by mouth Luke s 20 MG 13:01: daily. Medical tablet 11 [place] folic acid Yes 400ug QD Take [address] (FOLVITE) 7-02 mcg by [facility] 800 MCG 13:01: mouth Medical tablet 11 daily. [place] aspirin 81 Yes 162mg QD Take [address] MG EC 7-02 mg by [facility] tablet 13:01: mouth Medical 11 daily. [place] niacin 250 Yes 200mg Take [address] MG tablet 7-02 mg by [facility] 13:01: mouth Medical 11 daily with Center breakfast. losartan Yes 25mg QD Take [address] (COZAAR) 25 7-02 by mouth Luke s MG tablet 13:01: daily. Medica l 11 [place] sertraline Yes 25mg QD Take [address] (ZOLOFT) 25 7-02 by mouth Luke s MG tablet 13:01: daily. Medica l 11 [place] thyroid, Yes 30mg QD Take [address] pork, 90 mg 7-02 by mouth Luke s Tab 13:01: daily. Medical 11 Center fluticasone Yes 1{puff} Inhale [address] propion-ashkan 10-03 puff by [facility] meterol 13:01: mouth via Medic al (ADVAIR) 11 inhaler Center 250-50 every 12 mcg/dose (twelve) diskus hours. inhaler levothyroxi Yes 75ug Take [address] ne 7-02 mcg by [facility] (SYNTHROID, 13:01: mouth Medic al LEVOTHROID) 11 Every Center 75 MCG morning on tablet an empty stomach. albuterol Yes 2.5mg Take 2.[address] (PROVENTIL) 7-02 mg by [facility] 2.5 mg /3 13:01: nebulizati Me dical mL (0.083 11 on every 6 Cent er %) (six) nebulizer hours as solution needed for Wheezing. lansoprazol Yes 30mg QD Take [address] e -02 by mouth [facility] (PREVACID) 13:01: daily. Medic al 30 MG 11 [place] capsule mv-iron-min Yes Take by [facility] -ginkgo 7-02 mouth. [facility] b-ginseng 13:01: Medical Tab 11 [place] ascorbic Yes 1000mg QD Take 1,[address] acid, 7-02 mg by [employer] vitamin C, 13:01: mouth Medica l (VITAMIN C) 11 daily. [place] 1000 MG tablet cholecalcif Yes 1000U QD Take 1,[address] [place], 7-02 Units by [employer] vitamin D3, 13:01: mouth Medic al 1,000 unit 11 daily. [place] capsule rosuvastati Yes 20mg QD Take [address] n (CRESTOR) 7-02 by mouth Luke s 20 MG 13:01: daily. Medical tablet 11 [place] folic acid Yes 400ug QD Take [address] (FOLVITE) 7-02 mcg by [facility] 800 MCG 13:01: mouth Medical tablet 11 daily. [place] aspirin 81 Yes 162mg QD Take [address] MG EC 7-02 mg by [facility] tablet 13:01: mouth Medical 11 daily. [place] niacin 250 Yes 200mg Take [address] MG tablet 7-02 mg by [facility] 13:01: mouth Medical 11 daily with Center breakfast. losartan Yes 25mg QD Take [address] (COZAAR) 25 7-02 by mouth Luke s MG tablet 13:01: daily. Medica l 11 Center sertraline Yes 25mg QD Take [address] (ZOLOFT) 25 7-02 by mouth Luke s MG tablet 13:01: daily. Medica l 11 Center thyroid, Yes 30mg QD Take [address] pork, 90 mg 7-02 by mouth Luke s Tab 13:01: daily. Medical 11 Center fluticasone Yes 1{puff} Inhale [address] propion-ashkan 10-03 puff by [facility] meterol 13:01: mouth via Medic al (ADVAIR) 11 inhaler Center 250-50 every 12 mcg/dose (twelve) diskus hours. inhaler levothyroxi Yes 75ug Take [address] ne 7-02 mcg by [facility]ukes (SYNTHROID, 13:01: mouth Medic al LEVOTHROID) 11 Every Center 75 MCG morning on tablet an empty stomach. albuterol Yes 2.5mg Take 2.[address] (PROVENTIL) 7-02 mg by [facility] 2.5 mg /3 13:01: nebulizati Me dical mL (0.083 11 on every 6 Cent er %) (six) nebulizer hours as solution needed for Wheezing. lansoprazol Yes 30mg QD Take [address] e - by mouth [facility] (PREVACID) 13:01: daily. Medic al 30 MG 11 [place] capsule mv-iron-min Yes Take by [facility] -ginkgo -02 mouth. [facility] b-ginseng 13:01: Medical Tab 11 [place] ascorbic Yes 1000mg QD Take 1,[address] acid, 7-02 mg by [facility] vitamin C, 13:01: mouth Medica l (VITAMIN C) 11 daily. [place] 1000 MG tablet cholecalcif Yes 1000U QD Take 1,[address] [facility], 7-02 Units by [employer] vitamin D3, 13:01: mouth Medic al 1,000 unit 11 daily. Center capsule rosuvastati Yes 20mg QD Take [address] n (CRESTOR) 7-02 by mouth Luke s 20 MG 13:01: daily. Medical tablet 11 Center folic acid Yes 400ug QD Take [address] (FOLVITE) 7-02 mcg by [facility]ukes 800 MCG 13:01: mouth Medical tablet 11 daily. Center aspirin 81 Yes 162mg QD Take [address] MG EC 7-02 mg by [facility] tablet 13:01: mouth Medical 11 daily. Center niacin 250 Yes 200mg Take [address] MG tablet 7-02 mg by [facility] 13:01: mouth Medical 11 daily with Center breakfast. losartan Yes 25mg QD Take [address] (COZAAR) 25 7-02 by mouth Luke s MG tablet 13:01: daily. Medica l 11 [place] sertraline Yes 25mg QD Take [address] (ZOLOFT) 25 7-02 by mouth Luke s MG tablet 13:01: daily. Medica l 11 Center thyroid, Yes 30mg QD Take [address] pork, 90 mg 7-02 by mouth Luke s Tab 13:01: daily. Medical 11 Center fluticasone Yes 1{puff} Inhale [address] propion-ashkan -02 puff by [facility] meterol 13:01: mouth via Medic al (ADVAIR) 11 inhaler Center 250-50 every 12 mcg/dose (twelve) diskus hours. inhaler levothyroxi Yes 75ug Take [address] ne 7-02 mcg by [facility]ukes (SYNTHROID, 13:01: mouth Medic al LEVOTHROID) 11 Every Center 75 MCG morning on tablet an empty stomach. albuterol Yes 2.5mg Take 2.[address] (PROVENTIL) 7-02 mg by [facility]ukes 2.5 mg /3 13:01: nebulizati Me dical mL (0.083 11 on every 6 Cent er %) (six) nebulizer hours as solution needed for Wheezing. lansoprazol Yes 30mg QD Take [address] e 7-02 by mouth [facility] (PREVACID) 13:01: daily. Medic al 30 MG 11 [place] capsule mv-iron-min Yes Take by [facility] -ginkgo - mouth. [facility]ukes b-ginseng 13:01: Medical Tab 11 Center ascorbic Yes 1000mg QD Take 1,[address] acid, 7-02 mg by [facility] vitamin C, 13:01: mouth Medica l (VITAMIN C) 11 daily. [place] 1000 MG tablet cholecalcif Yes 1000U QD Take 1,[address] [facility], 7-02 Units by [employer] vitamin D3, 13:01: mouth Medic al 1,000 unit 11 daily. [place] capsule rosuvastati Yes 20mg QD Take [address] n (CRESTOR) -02 by mouth Luke s 20 MG 13:01: daily. Medical tablet 11 Center folic acid Yes 400ug QD Take [address] (FOLVITE) 7-02 mcg by [facility]ukes 800 MCG 13:01: mouth Medical tablet 11 daily. [place] aspirin 81 Yes 162mg QD Take [address] MG EC 7-02 mg by [facility] tablet 13:01: mouth Medical 11 daily. [place] niacin 250 Yes 200mg Take [address] MG tablet 7-02 mg by [facility] 13:01: mouth Medical 11 daily with Center breakfast. losartan Yes 25mg QD Take [address] (COZAAR) 25 -02 by mouth Luke s MG tablet 13:01: daily. Medica l 11 [place] sertraline Yes 25mg QD Take [address] (ZOLOFT) 25 02 by mouth Luke s MG tablet 13:01: daily. Medica l 11 Center thyroid, Yes 30mg QD Take [address] pork, 90 mg 7-02 by mouth Luke s Tab 13:01: daily. Medical 11 Center fluticasone Yes 1{puff} Inhale [address] propion-ashkan 10-03 puff by [facility] meterol 13:01: mouth via Medic al (ADVAIR) 11 inhaler Center 250-50 every 12 mcg/dose (twelve) diskus hours. inhaler levothyroxi 2022-0 Yes 75ug Take [address] ne 7-02 mcg by [facility]ukes (SYNTHROID, 13:01: mouth Medic al LEVOTHROID) 11 Every Center 75 MCG morning on tablet an empty stomach. albuterol 0 Yes 2.5mg Take 2.[address] (PROVENTIL) 7-02 mg by [facility] 2.5 mg /3 13:01: nebulizati Me dical mL (0.083 11 on every 6 Cent er %) (six) nebulizer hours as solution needed for Wheezing. lansoprazol 0 Yes 30mg QD Take [address] e 7-02 by mouth [facility] (PREVACID) 13:01: daily. Medic al 30 MG 11 Center capsule fluticasone Yes 1{puff} Inhale [address] propion-ashkan - puff by [facility] meterol 13:01: mouth via Medic al (ADVAIR) 11 inhaler Center 250-50 every 12 mcg/dose (twelve) diskus hours. inhaler levothyroxi Yes 75ug Take [address] ne 7-02 mcg by [facility]ukes (SYNTHROID, 13:01: mouth Medic al LEVOTHROID) 11 Every Center 75 MCG morning on tablet an empty stomach. albuterol Yes 2.5mg Take 2.[address] (PROVENTIL) 7-02 mg by [facility]ukes 2.5 mg /3 13:01: nebulizati Me dical mL (0.083 11 on every 6 Cent er %) (six) nebulizer hours as solution needed for Wheezing. lansoprazol 0 Yes 30mg QD Take [address] e 7-02 by mouth [facility] (PREVACID) 13:01: daily. Medic al 30 MG 11 Center capsule mv-iron-min Yes Take by [facility] -ginkgo 7-02 mouth. [facility] b-ginseng 13:01: Medical Tab 11 Center ascorbic 0 Yes 1000mg QD Take 1,[address] acid, 7-02 mg by [employer] vitamin C, 13:01: mouth Medica l (VITAMIN C) 11 daily. Center 1000 MG tablet cholecalcif Yes 1000U QD Take 1,[address] [place], 7-02 Units by [employer] vitamin D3, 13:01: mouth Medic al 1,000 unit 11 daily. Center capsule rosuvastati Yes 20mg QD Take [address] n (CRESTOR) 7-02 by mouth Luke s 20 MG 13:01: daily. Medical tablet 11 Center folic acid Yes 400ug QD Take [address] (FOLVITE) 7-02 mcg by [facility]ukes 800 MCG 13:01: mouth Medical tablet 11 daily. [place] aspirin 81 Yes 162mg QD Take [address] MG EC 7-02 mg by [facility] tablet 13:01: mouth Medical 11 daily. [place] niacin 250 Yes 200mg Take [address] MG tablet 7-02 mg by [facility]ukes 13:01: mouth Medical 11 daily with Center breakfast. losartan Yes 25mg QD Take [address] (COZAAR) 25 7-02 by mouth Luke s MG tablet 13:01: daily. Medica l 11 [place] sertraline Yes 25mg QD Take [address] (ZOLOFT) 25 7-02 by mouth Luke s MG tablet 13:01: daily. Medica l [address] [place] [address] thyroid, Yes 30mg QD Take [address] pork, 90 mg 7-02 by mouth Luke s Tab 13:01: daily. [address] levothyroxi Yes Univer s ne 50 mcg 8-22 ity of tablet 00:00: [address] levothyroxi 0 Yes Univer s ne 50 mcg 8-22 ity of tablet 00:00: [address] levothyroxi 2017-0 Yes Univer s ne 50 mcg 8-22 ity of tablet 00:00: [address] levothyroxi Yes Univer s ne 50 mcg 8-22 ity of tablet 00:00: [address] Vital Signs Vital Name Observation Time Observation Value Comments Source HEIGHT 2021-10-01 15:00:00 166.4 cm WEIGHT 2021-10-01 15:00:00 88.4 kg HEIGHT 2021-10-01 15:00:00 166.4 cm WEIGHT 2021-10-01 15:00:00 88.4 kg HEIGHT 2021-10-01 15:00:00 166.4 cm WEIGHT 2021-10-01 15:00:00 88.4 kg Body temperature 2020-08-14 20:15:00 36.67 Aida [facility] Body weight 2020-08-14 20:15:00 89.812 kg [facility] BMI 2020-08-14 20:15:00 32.95 kg/m2 [facility] Systolic blood 2021-10-03 09:00:00 131 mm[Hg] [facility] Diastolic blood 2021-10-03 09:00:00 81 mm[Hg] [facility] Heart rate 2021-10-03 09:00:00 73 /min [facility] Body temperature 2021-10-03 09:00:[address] [facility] Respiratory rate 2021-10-03 09:00:00 17 /min [facility] Oxygen saturation in 2021-10-03 09:00:00 96 /min [facility] Arterial blood by Medical Ce nter Pulse oximetry Body height 2021-10-02 12:13:00 165.1 cm [facility] Body weight 2021-10-02 12:13:00 88.4 kg [facility] BMI 2021-10-02 12:13:00 32.43 kg/m2 [facility] Procedures Procedure Date / Time Performing Clinician Source Performed BASIC METABOLIC PANEL 2021-10-03 05:12:00 Gary [facility] CBC W/PLT COUNT & AUTO 2021-10-03 05:12:00 neelam [facility] CBC W/PLT COUNT & AUTO 2021-10-03 05:12:00 Gary [facility] MRA NECK WITHOUT IV 2021-10-02 20:31:00 Shweta Kumar [facility] MR BRAIN WITHOUT IV 2021-10-02 20:28:00 Gary [facility] MRA HEAD WITHOUT IV 2021-10-02 20:28:00 Nora Coburn [facility] 2D ECHO W/ DOPPLER 2021-10-02 08:44[facility] BASIC METABOLIC PANEL 2021-10-02 04:18:00 Ahmad, [facility] LIPID PANEL 2021-10-02 04:18:00 Ahmad, [facility] CBC W/PLT COUNT & AUTO 2021-10-02 04:18:00 ma, [facility] TSH/FREE T4 IF 2021-10-02 04:18:00 Ahmad, [facility] CBC W/PLT COUNT & AUTO 2021-10-02 04:[facility] BASIC METABOLIC PANEL 2021-10-01 15:46:00 Ahmad, [facility] CBC W/PLT COUNT & AUTO 2021-10-01 15:46:00 ma, [facility] HIGH SENSITIVITY 2021-10-01 15:46:00 Ahma, [facility] TROPONIN I Center HEMOGLOBIN A1C 2021-10-01 15:46:00 Ahmad, [facility] HEPATIC FUNCTION PANEL 2021-10-01 15:46:00 [facility], [facility] PROTHROMBIN TIME/INR 2021-10-01 15:46:00 [facility], [facility] VITAMIN B12 2021-10-01 15:46:00 Ahma, [facility] CBC W/PLT COUNT & AUTO 2021-10-01 15:46:00 [facility], [facility] XR FOOT 3+ VW LEFT 2020-08-14 19:39:16 Funmi Bynum [facility] ASSIGNMENT OF BENEFITS 2020-08-14 18:44:48 Doctor Unassigned, No [facility] Plan of Care Planned Activity Planned Date Details Comments Source Future Scheduled 2022-10-01 Tobacco Cessation [facility] 00:00:00 Counseling and Medical Cente r Screening (12+) [code = Tobacco Cessation Counseling and Screening (12+)] Future Scheduled 2022-10-[address] [facility] Test 00:00:00 Counseling and Medical Cente r Screening (12+) [code = Tobacco Cessation Counseling and Screening (12+)] Future Scheduled 2022-10-[address] [facility] Test 00:00:00 Counseling and Medical Cente r Screening (12+) [code = Tobacco Cessation Counseling and Screening (12+)] Future Scheduled 2022-10-[address] [facility] Test 00:00:00 Counseling and Medical Cente r Screening (12+) [code = Tobacco Cessation Counseling and Screening (12+)] Future Scheduled 2022-10-[address] [facility] Test 00:00:00 Counseling and Medical Cente r Screening (12+) [code = Tobacco Cessation Counseling and Screening (12+)] Future Scheduled 2022-04-[address] [facility] Test 00:00:00 (12+) [code = Medical Center DEPRESSION SCREENING (12+)] Future Scheduled 2022-04-04 FALLS RISK SCREENING [facility] Test 00:00:00 [code = FALLS RISK Medical C enter SCREENING] Future Scheduled 2022-04-[address] [facility] Test 00:00:00 (12+) [code = Medical Center DEPRESSION SCREENING (12+)] Future Scheduled 2022-04-04 FALLS RISK SCREENING [facility] Test 00:00:00 [code = FALLS RISK Medical C enter SCREENING] Future Scheduled 2022-04-[address] [facility] Test 00:00:00 (12+) [code = Medical Center DEPRESSION SCREENING (12+)] Future Scheduled 2022-04-04 FALLS RISK SCREENING [facility] Test 00:00:00 [code = FALLS RISK Medical C enter SCREENING] Future Scheduled 2021-12-03 INFLUENZA VACCINE (#1) [facility] 00:00:00 [code = INFLUENZA Medical Ce nter VACCINE (#1)] Future Scheduled 2021-12-03 INFLUENZA VACCINE (#1) [facility] 00:00:00 [code = INFLUENZA Medical Ce nter VACCINE (#1)] Future Scheduled 2021-12-03 INFLUENZA VACCINE (#1) [facility] 00:00:00 [code = INFLUENZA Medical Ce nter VACCINE (#1)] Future Scheduled 2021-12-03 INFLUENZA VACCINE (#1) [facility] 00:00:00 [code = INFLUENZA Medical Ce nter VACCINE (#1)] Future Scheduled 2021-12-03 INFLUENZA VACCINE (#1) [facility] 00:00:00 [code = INFLUENZA Medical Ce nter VACCINE (#1)] Future Scheduled 2021-04-[address] [facility] Test 00:00:00 (12+) [code = Medical Center DEPRESSION SCREENING (12+)] Future Scheduled 2021-04-04 FALLS RISK SCREENING [facility] Test 00:00:00 [code = FALLS RISK Medical C enter SCREENING] Future Scheduled 2021-04-[address] [facility] Test 00:00:00 (12+) [code = Medical Center DEPRESSION SCREENING (12+)] Future Scheduled 2021-04-04 FALLS RISK SCREENING [facility] Test 00:00:00 [code = FALLS RISK Medical C enter SCREENING] Future Scheduled 2019-04-[address] [facility] Test 00:00:00 WELLNESS (YEAR 2 or Medical Center FIRST YEAR if no IPPE) [code = MEDICARE ANNUAL WELLNESS (YEAR 2 or FIRST YEAR if no IPPE)] Future Scheduled 2019-04-[address] [facility] 00:00:00 WELLNESS (YEAR 2 or Medical Center FIRST YEAR if no IPPE) [code = MEDICARE ANNUAL WELLNESS (YEAR 2 or FIRST YEAR if no IPPE)] Future Scheduled 2019-04-[address] [facility] Test 00:00:00 WELLNESS (YEAR 2 or Medical Center FIRST YEAR if no IPPE) [code = MEDICARE ANNUAL WELLNESS (YEAR 2 or FIRST YEAR if no IPPE)] Future Scheduled 2019-04-[address] [facility] 00:00:00 WELLNESS (YEAR 2 or Medical Center FIRST YEAR if no IPPE) [code = MEDICARE ANNUAL WELLNESS (YEAR 2 or FIRST YEAR if no IPPE)] Future Scheduled 2019-04-[address] [facility] Test 00:00:00 WELLNESS (YEAR 2 or Medical Center FIRST YEAR if no IPPE) [code = MEDICARE ANNUAL WELLNESS (YEAR 2 or FIRST YEAR if no IPPE)] Future Scheduled 1998 SHINGLES VACCINES ([address] [facility] 00:00:00 2) [code = SHINGLES Medical Center VACCINES (1 of 2)] Future Scheduled 1998 SHINGLES VACCINES ([address] [facility] Test 00:00:00 2) [code = SHINGLES Medical Center VACCINES (1 of 2)] Future Scheduled 1998 SHINGLES VACCINES ([address] [facility] Test 00:00:00 2) [code = SHINGLES Medical Center VACCINES (1 of 2)] Future Scheduled 1998 SHINGLES VACCINES ([address] [facility] Test 00:00:00 2) [code = SHINGLES Medical Center VACCINES (1 of 2)] Future Scheduled 1998 SHINGLES VACCINES ([address] [facility] Test 00:00:00 2) [code = SHINGLES Medical Center VACCINES (1 of 2)] Future Scheduled 1967 DTAP/TDAP/TD VACCINES [facility] 00:00:00 (1 - Tdap) [code = Medical C enter DTAP/TDAP/TD VACCINES (1 - Tdap)] Future Scheduled 1967 DTAP/TDAP/TD VACCINES [facility] 00:00:00 (1 - Tdap) [code = Medical C enter DTAP/TDAP/TD VACCINES (1 - Tdap)] Future Scheduled 1967 DTAP/TDAP/TD VACCINES [facility] 00:00:00 (1 - Tdap) [code = Medical C enter DTAP/TDAP/TD VACCINES (1 - Tdap)] Future Scheduled 1967 DTAP/TDAP/TD VACCINES [facility] 00:00:00 (1 - Tdap) [code = Medical C enter DTAP/TDAP/TD VACCINES (1 - Tdap)] Future Scheduled 1967 DTAP/TDAP/TD VACCINES [facility] 00:00:00 (1 - Tdap) [code = Medical C enter DTAP/TDAP/TD VACCINES (1 - Tdap)] Future Scheduled 1966 HEPATITIS C SCREENING [facility] 00:00:00 [code = HEPATITIS C Medical Center SCREENING] Future Scheduled 1966 HEPATITIS C [facility]CRE[facility]ING [facility] 00:00:00 [code = HEPATITIS C Medical Center SCREENING] Future Scheduled 1966 HEPATITIS C [facility]CRE[facility] 00:00:00 [code = HEPATITIS C Medical Center SCREENING] Future Scheduled 1966 HEPATITIS C [facility]code [facility]] Future Scheduled 1966 HEPATITIS C [facility] [code = [facility] SCREENING] Future Scheduled 1954 PNEUMOCOCCAL 65+ YRS ([address] [facility] 00:00:00 - PCV) [code = Medical Cent[facility] PNEUMOCOCCAL 65+ YRS (1 - PCV)] Future Scheduled 1954 PNEUMOCOCCAL 65+ YRS ([address] [facility] 00:00:00 - PCV) [code = Medical Cente r PNEUMOCOCCAL 65+ YRS (1 - PCV)] Future Scheduled 1954 PNEUMOCOCCAL 65+ YRS ([address] [facility] 00:00:00 - PCV) [code = Medical Cente r PNEUMOCOCCAL 65+ YRS (1 - PCV)] Future Scheduled 1954 PNEUMOCOCCAL 65+ YRS ([address] [facility] 00:00:00 - PCV) [code = Medical Cente r PNEUMOCOCCAL 65+ YRS (1 - PCV)] Future Scheduled 1954 PNEUMOCOCCAL 65+ YRS ([address] [facility] 00:00:00 - PCV) [code = Medical Cente r PNEUMOCOCCAL 65+ YRS (1 - PCV)] Future Scheduled 1948 COVID-19 VACCINE (#1) [facility] 00:00:00 [code = COVID-[address] VACCINE (#1)] Future Scheduled 1948 COVID-19 VACCINE (#1) [facility] 00:00:00 [code = COVID-[address] VACCINE (#1)] Future Scheduled 1948 COVID-19 VACCINE (#1) [facility] 00:00:00 [code = COVID-[address] VACCINE (#1)] Future Scheduled 1948 COVID-19 VACCINE (#1) [facility] 00:00:00 [code = COVID-[address] VACCINE (#1)] Future Scheduled 1948 COVID-19 VACCINE (#1) [facility] 00:00:00 [code = COVID-[address] VACCINE (#1)] Future Scheduled 1948 Screening for malignant [facility] 00:00:00 neoplasm of breast Medical C enter (procedure) [code = [id number]] Future Scheduled 1948 CT Colonography (combo) [facility] 00:00:00 [code = CT Colonography [facility] (combo)] Future Scheduled 1948 Screening for malignant [facility] 00:00:00 neoplasm of colon Medical Ce nter (procedure) [code = 600176599] Future Scheduled 1948 Screening for malignant [facility] 00:00:00 neoplasm of colon Medical Ce nter (procedure) [code = 201487366] Future Scheduled 1948 DXA SCAN [code = DXA [facility] 00:00:00 SCAN] [facility] Future Scheduled 1948 Screening for malignant [facility] 00:00:00 neoplasm of colon Medical Ce nter (procedure) [code = 906866247] Future Scheduled 1948 Screening for malignant [facility] 00:00:00 neoplasm of colon Medical Ce nter (procedure) [code = 602525789] Future Scheduled 1948 Sigmoidoscopy [code = [facility] S[facility]oidoscopy] [facility] Future Scheduled 1948 Screening for malignant [facility] 00:00:00 neoplasm of breast Medical C enter (procedure) [code = 157917028] Future Scheduled 1948 CT Colonography (combo) [facility] 00:00:00 [code = CT Colonography [facility] (combo)] Future Scheduled 1948 Screening for malignant [facility] 00:00:00 neoplasm of colon Medical Ce nter (procedure) [code = 723624773] Future Scheduled 1948 Screening for malignant [facility] 00:00:00 neoplasm of colon Medical Ce nter (procedure) [code = 765728110] Future Scheduled 1948 DXA SCAN [code = DXA [facility] 00:00:00 SCAN] [facility] Future Scheduled 1948 Screening for malignant [facility] 00:00:00 neoplasm of colon Medical Ce nter (procedure) [code = 951957841] Future Scheduled 1948 Screening for malignant [facility] 00:00:00 neoplasm of colon Medical Ce nter (procedure) [code = 452388693] Future Scheduled 1948 Sigmoidoscopy [code = [facility] Sigmoidoscopy] [facility] Cent[facility] Future Scheduled 1948 Screening for malignant [facility] 00:00:00 neoplasm of breast Medical C enter (procedure) [code = 197091224] Future Scheduled 1948 CT Colonography (combo) [facility] 00:00:00 [code = CT Colonography [facility] (combo)] Future Scheduled 1948 Screening for malignant [facility] 00:00:00 neoplasm of colon Medical Ce nter (procedure) [code = 733978931] Future Scheduled 1948 Screening for malignant [facility] 00:00:00 neoplasm of colon Medical Ce nter (procedure) [code = 287278215] Future Scheduled 1948 DXA SCAN [code = DXA [facility] 00:00:00 SCAN] [facility] Future Scheduled 1948 Screening for malignant [facility] 00:00:00 neoplasm of colon Medical Ce nter (procedure) [code = 560844770] Future Scheduled 1948 Screening for malignant [facility] 00:00:00 neoplasm of colon Medical Ce nter (procedure) [code = 293189619] Future Scheduled 1948 Sigmoidoscopy [code = [facility] 00:[facility] Sigmoidoscopy] Medical Cente [facility] Future Scheduled 1948 Screening for malignant [facility] 00:00:00 neoplasm of breast Medical C enter (procedure) [code = 422215093] Future Scheduled 1948 CT Colonography (combo) [facility] 00:00:00 [code = CT Colonography [facility] (combo)] Future Scheduled 1948 Screening for malignant [facility] 00:00:00 neoplasm of colon Medical Ce nter (procedure) [code = 393648481] Future Scheduled 1948 Screening for malignant [facility] 00:00:00 neoplasm of colon Medical Ce nter (procedure) [code = 948719168] Future Scheduled 1948 DXA SCAN [code = DXA [facility] 00:00:00 SCAN] [facility] Future Scheduled 1948 Screening for malignant [facility] 00:00:00 neoplasm of colon Medical Ce nter (procedure) [code = 372510394] Future Scheduled 1948 Screening for malignant [facility] 00:00:00 neoplasm of colon Medical Ce nter (procedure) [code = 187967242] Future Scheduled 1948 Sigmoidoscopy [code = [facility] 00:[facility] Sigmoidoscopy] Medical Cente [facility] Future Scheduled 1948 Screening for malignant [facility] 00:00:00 neoplasm of breast Medical C enter (procedure) [code = 800689413] Future Scheduled 1948 CT Colonography (combo) [facility] 00:00:00 [code = CT Colonography [facility] (combo)] Future Scheduled 1948 Screening for malignant [facility] 00:00:00 neoplasm of colon Medical Ce nter (procedure) [code = 842096784] Future Scheduled 1948 Screening for malignant [facility] 00:00:00 neoplasm of colon Medical Ce nter (procedure) [code = 352584060] Future Scheduled 1948 DXA SCAN [code = DXA [facility] 00:00:00 SCAN] [facility] Future Scheduled 1948 Screening for malignant [facility] 00:00:00 neoplasm of colon Medical Ce nter (procedure) [code = 503385953] Future Scheduled 1948 Screening for malignant [facility] 00:00:00 neoplasm of colon Medical Ce nter (procedure) [code = 762895450] Future Scheduled 1948 Sigmoidoscopy [code = [facility] End Encounter Admission Attending Care Care Encounter Source Date/Time Date/Time Type Type Clinicians Facility Department ID 2022-06-14 2022-06-14 Outpatient Rogelio, [facility] [id number] [facility] 10:00:00 10:00:00 Patricia [facility] 2021-10-01 2021-10-03 [facility], [facility] [id number] 14:28:00 11:00:00 Encounter [facility] 2021-10-01 2021-10-03 Inpatient ER [facility] Neuro ICU [id number] [facility] 14:28:00 11:00:00 TORIBIO 2021-10-01 2021-10-03 [facility] [id number] 14:28:00 11:00:00 Encounter [facility] 2021-10-01 2021-10-01 Travel [facility] [id number] [facility]00 [facility] 2021-10-01 2021-10-01 Travel [facility] [id number] [facility] 00[facility]00 [facility] 2020-08-14 2020-08-14 [facility] [id number] [facility] 13:56:37 23:59:00 Encounter [facility] [id number] [facility] [phone] Me dical 807 Branch 2020-08-14 2020-08-14 Outpatient R [facility] [id number] Univers 14:00:00 14:00:00 [facility] 2020-08-14 2020-08-14 Office [facility] [id number] Univers 13:43:53 13:53:53 Visit [facility] [id number] it [place] [id number] Me dical 198 Branch 2020-08-14 2020-08-14 Orders Doctor JACKSON [id number] Univers 00:00:00 00:00:00 Only Unassigned, CHARLES [id number] ity of [place] [facility] 4.2.7.2.686 Christos as [id number] [place] [id number] Branch Results Test Description Test Time Test Comments Results Result Comments Source BASIC METABOLIC PANEL 2021-10-03 06:12:59 Test Item Value Reference Range Interpretation Comme nts SODIUM (BEAKER) (test code 140 meq/L 136-145 = 381) POTASSIUM (BEAKER) (test 3.8 meq/L 3.5-5.1 code = 379) CHLORIDE (BEAKER) (test 109 meq/L 98-107 H code = 382) CO2 (BEAKER) (test code = 23 meq/L 22-29 355) BLOOD UREA NITROGEN 13 mg/dL 7-21 (BEAKER) (test code = 354) CREATININE (BEAKER) (test 0.65 mg/dL 0.57-1.25 code = 358) GLUCOSE RANDOM (BEAKER) 90 mg/dL 70-105 (test code = 652) CALCIUM (BEAKER) (test code 9.3 mg/dL 8.4-10.2 = 697) EGFR (BEAKER) (test code = 89 mL/min/1.73 sq m ESTIMATED GFR IS NOT 1092) ACCURATE CRE ATININE CLEARANCE IN [place] EDICTING GLOMERULAR FILT RATION RATE. ESTIMATED GFR IS NOT APPLICABLE FOR DIALYSIS PATIENTS. Marine Scientist ID - CONNIE [facility]BC W/PLT COUNT & AUTO [id number] 05:38:37 Test Item Value Reference Range Interpretation Comments WHITE BLOOD CELL COUNT (BEAKER) 7.5 K/ L 3.5-10.5 (test code = 775) RED BLOOD CELL COUNT (BEAKER) 4.56 M/ L 3.93-5.22 (test code = 761) HEMOGLOBIN (BEAKER) (test code = 12.6 GM/DL 11.2-15.7 410) HEMATOCRIT (BEAKER) (test code = 40.3 % 34.1-44.9 411) MEAN CORPUSCULAR VOLUME (BEAKER) 88.4 fL 79.4-94.8 (test code = 753) MEAN CORPUSCULAR HEMOGLOBIN 27.6 pg 25.6-32.2 (BEAKER) (test code = 751) MEAN CORPUSCULAR HEMOGLOBIN CONC 31.3 GM/DL 32.2-35.5 L (BEAKER) (test code = 752) RED CELL DISTRIBUTION WIDTH 14.5 % 11.7-14.4 H (BEAKER) (test code = 412) PLATELET COUNT (BEAKER) (test 189 K/CU MM 150-450 code = 756) MEAN PLATELET VOLUME (BEAKER) 9.3 fL 9.4-12.3 L (test code = 754) NUCLEATED RED BLOOD CELLS 0 /100 WBC 0-0 (BEAKER) (test code = 413) NEUTROPHILS RELATIVE PERCENT 48 % (BEAKER) (test code = 429) LYMPHOCYTES RELATIVE PERCENT 38 % (BEAKER) (test code = 430) MONOCYTES RELATIVE PERCENT 11 % (BEAKER) (test code = 431) EOSINOPHILS RELATIVE PERCENT 2 % (BEAKER) (test code = 432) BASOPHILS RELATIVE PERCENT 1 % (BEAKER) (test code = 437) NEUTROPHILS ABSOLUTE COUNT 3.61 K/ L 1.56-6.13 (BEAKER) (test code = 670) LYMPHOCYTES ABSOLUTE COUNT 2.86 K/ L 1.18-3.74 (BEAKER) (test code = 414) MONOCYTES ABSOLUTE COUNT (BEAKER) 0.80 K/ L 0.24-0.36 H (test code = 415) EOSINOPHILS ABSOLUTE COUNT 0.18 K/ L 0.04-0.36 (BEAKER) (test code = 416) BASOPHILS ABSOLUTE COUNT (BEAKER) 0.04 K/ L 0.01-0.08 (test code = 417) IMMATURE GRANULOCYTES-RELATIVE 0 % 0-1 PERCENT (BEAKER) (test code = 2801) MR, BRAIN, WITHOUT [id number] 20:41:00Reason for exam:->StrokeWhat is the patient's sedation requirement?->No SedationIs the patient claustrophobic?->No [facility] : 1950 Sex: FFINAL REPORT MR, BRAIN, WITHOUT CONTRAST, MR, MRA, NECK, WITHOUT IV CONTRAST, MR, MRA, BRAIN, WITHOUT CONTRAST INDICATION: Stroke, follow upStroke TECHNIQUE: Multiplanar, multisequenceMR images of the brain. 3-D time of flight MRA of the cranial and cervical circulation. 2-D time of flight MRA of the neck. 3D MIP angiographic post-processing was performed. Stenosis evaluation utilized NASCET criteria. COMPARISON: Noncontrast brain CT of the same date FINDINGS: MRI BRAIN: Brain parenchyma is normal in morphology. Midline structures are normally developed. No restricted diffusion tosuggest recent ischemic insult. No abnormal susceptibility. Scattered T2/FLAIR hyperintense foci within the periventricular and subcortical white matter are nonspecific, however, statistically represent chronic microvascular ischemic changes. No hydrocephalus. Orbits are within normal limits. No obstructive paranasal sinus disease. Additional findings: None. MRA BRAIN:Internal carotid arteries: Normal flow related enhancement without flow-limiting stenosisMiddle cerebral arteries: Normal flow related enhancement within the bilateral MCA M1-M2 segments Anterior cerebral arteries: Normal flow-relatedenhancement within the bilateral EDDIE A1-A2 segments without flow limiting stenosisBasilar system: Normal flow-related enhancement within the bilateral V4 segments and the basilar artery Posterior cerebral arteries: Normal flow-related enhancement within the bilateral [employer] CODER P1-P2 segments Additional findings: None. MRA NECK:Common carotid arteries: Unremarkable. Bifurcations: No flow-limiting stenosis. Cervical internal carotid arteries: No flow limiting stenosis.Vertebral arteries: Origins are not well-seen. No flow limiting stenosis within the visualized cervical vertebral arterial segments. Limited assessment of the V3 segment secondary to noncontrast technique. IMPRESSION: No acute ischemia or parenchymal hemorrhage. No flow limiting stenosis in the major branch vessels of the cervical or cranial circulation. Signed: Fernanda Rodriguez MDReport Verified Date/Time: 10/02/2021 20:41:06 MR, MRA, BRAIN, WITHOUT CONTRAST 2021-10-02 20:41:00Unlisted Reason for Exam - Click Yes and Enter Reason Below->[facility] : 1950 Sex: FFINAL REPORT MR, BRAIN, WITHOUT CONTRAST, MR, MRA, NECK, WITHOUT IV CONTRAST, MR, MRA, BRAIN, WITHOUT CONTRAST INDICATION: Stroke, follow upStroke TECHNIQUE: Multiplanar, multisequenceMR images of the brain. 3-D time of flight MRA of the cranial and cervical circulation. 2-D time of flight MRA of the neck. 3D MIP angiographic post-processing was performed. Stenosis evaluation utilized NASCET criteria. COMPARISON: Noncontrast brain CT of the same date FINDINGS: MRI BRAIN: Brain parenchyma is normal in morphology. Midline structures are normally developed. No restricted diffusion tosuggest recent ischemic insult. No abnormal susceptibility. Scattered T2/FLAIR hyperintense foci within the periventricular and subcortical white matter are nonspecific, however, statistically represent chronic microvascular ischemic changes. No hydrocephalus. Orbits are within normal limits. No obstructive paranasal sinus disease. Additional findings: None. MRA BRAIN:Internal carotid arteries: Normal flow related enhancement without flow-limiting stenosisMiddle cerebral arteries: Normal flow related enhancement within the bilateral MCA M1-M2 segments Anterior cerebral arteries: Normal flow-relatedenhancement within the bilateral EDDIE A1-A2 segments without flow limiting stenosisBasilar system: Normal flow-related enhancement within the bilateral V4 segments and the basilar artery Posterior cerebral arteries: Normal flow-related enhancement within the bilateral [employer] INS[employer] CODER P1-P2 segments Additional findings: None. MRA NECK:Common carotid arteries: Unremarkable. Bifurcations: No flow-limiting stenosis. Cervical internal carotid arteries: No flow limiting stenosis.Vertebral arteries: Origins are not well-seen. No flow limiting stenosis within the visualized cervical vertebral arterial segments. Limited assessment of the V3 segment secondary to noncontrast technique. IMPRESSION: No acute ischemia or parenchymal hemorrhage. No flow limiting stenosis in the major branch vessels of the cervical or cranial circulation. Signed: Fernanda Rodriguez MDReport Verified Date/Time: 10/02/2021 20:41:06 MR, MRA, NECK, WITHOUT IV CONTRAST 2021-10-02 20:41:00Reason for exam:->Ischemic Stroke [facility] 1950 Sex: FFINAL REPORT MR, BRAIN, WITHOUT CONTRAST, MR, MRA, NECK, WITHOUT IV CONTRAST, MR, MRA, BRAIN, WITHOUT CONTRAST INDICATION: Stroke, follow upStroke TECHNIQUE: Multiplanar, multisequenceMR images of the brain. 3-D time of flight MRA of the cranial and cervical circulation. 2-D time of flight MRA of the neck. 3D MIP angiographic post-processing was performed. Stenosis evaluation utilized NASCET criteria. COMPARISON: Noncontrast brain CT of the same date FINDINGS: MRI BRAIN: Brain parenchyma is normal in morphology. Midline structures are normally developed. No restricted diffusion tosuggest recent ischemic insult. No abnormal susceptibility. Scattered T2/FLAIR hyperintense foci within the periventricular and subcortical white matter are nonspecific, however, statistically represent chronic microvascular ischemic changes. No hydrocephalus. Orbits are within normal limits. No obstructive paranasal sinus disease. Additional findings: None. MRA BRAIN:Internal carotid arteries: Normal flow related enhancement without flow-limiting stenosisMiddle cerebral arteries: Normal flow related enhancement within the bilateral MCA M1-M2 segments Anterior cerebral arteries: Normal flow-relatedenhancement within the bilateral EDDIE A1-A2 segments without flow limiting stenosisBasilar system: Normal flow-related enhancement within the bilateral V4 segments and the basilar artery Posterior cerebral arteries: Normal flow-related enhancement within the bilateral [employer] CODER P1-P2 segments Additional findings: None. MRA NECK:Common carotid arteries: Unremarkable. Bifurcations: No flow-limiting stenosis. Cervical internal carotid arteries: No flow limiting stenosis.Vertebral arteries: Origins are not well-seen. No flow limiting stenosis within the visualized cervical vertebral arterial segments. Limited assessment of the V3 segment secondary to noncontrast technique. IMPRESSION: No acute ischemia or parenchymal hemorrhage. No flow limiting stenosis in the major branch vessels of the cervical or cranial circulation. Signed: Fernanda Rodriguez MDReport Verified Date/Time: 10/02/2021 20:41:06 2D Echo W/Doppler(CW/PW/Color) with [id number] 13:57:25Ejection FractionSLEH ECHO [facility] W/Doppler(CW/PW/Color) with [id number] 13:57:25Ejection FractionSLEH ECHO HEARTLAB [facility]2D Echo W/Doppler(CW/PW/Color) with [id number] 13:57:25Ejection FractionSLEH ECHO HEARTLAB [facility]2D Echo W/Doppler(CW/PW/Color) with [id number] 13:57:25Ejection [facility]SLEH [facility] W/Doppler(CW/PW/Color) with [id number] 13:57:25Ejection FractionSLEH ECHO [facility]LAB [facility]ington[facility]MOGLOB[facility] [id number] 09:26:22 Test Item Value Reference Range Interpretation Comments HEMOGLOBIN A1C 5.4 % See_Comment [Automated m essage] ELECTROPHORESIS (BEAKER) The system which (test code = 3811) generated this result transmitted ref erence range: <=5.6%. The reference range was not used to int erpret this result as normal/abnormal . "The A1c is measured using a [facility]-certified method. HbA1c value equal to or greater than 6.5% as thediagnosis cutoff for diabetes. An HbA1c value of 5.7- 6.4% indicates increased risk for diabetes (prediabetes)."Marine Scientist ID - ADMLIPID [id number] 05:11:39 Test Item Value Reference Range Interpretation Comments TRIGLYCERIDES (BEAKER) 100 mg/dL Speci men slightly (test code = 540) hemolyzed CHOLESTEROL (BEAKER) 118 mg/dL Specime n slightly (test code = 631) hemolyzed HDL CHOLESTEROL (BEAKER) 50 mg/dL (test code = 976) LDL CHOLESTEROL 48 mg/dL CALCULATED (BEAKER) (test code = 633) Triglyceride Reference Range: Low Risk <150 Borderline 150-199 High Risk 200-499 Very High Risk >=500Cholesterol Reference Range: Low Risk <200 Borderline 200-239 High Risk >240HDL Cholesterol Reference Range: Low Risk >=60 High Risk <40LDL Cholesterol Reference Range: Optimal <100 Near Optimal 100-129 Borderline 130-159 High 160-189 Very High >=190 Marine Scientist ID - AGUSTINA GBASIC METABOLIC [id number] 05:11:39 Test Item Value Reference Range Interpretation Comments SODIUM (BEAKER) 143 meq/L 136-145 (test code = 381) POTASSIUM (BEAKER) 4.0 meq/L 3.5-5.1 Specimen slightly (test code = 379) hemolyzed CHLORIDE (BEAKER) 111 meq/L 98-107 H (test code = 382) CO2 (BEAKER) (test 24 meq/L 22-29 code = 355) BLOOD UREA NITROGEN 14 mg/dL 7-21 (BEAKER) (test code = 354) CREATININE (BEAKER) 0.67 mg/dL 0.57-1.25 Specimen slightly (test code = 358) hemolyzed GLUCOSE RANDOM 100 mg/dL 70-105 (BEAKER) (test code = 652) CALCIUM (BEAKER) 9.5 mg/dL 8.4-10.2 (test code = 697) EGFR (BEAKER) (test 86 mL/min/1.73 ESTIMA FAISAL GFR IS code = 1092) sq m NOT ACCURATE CREATININE CLEARANCE IN PREDICTING GLOMERULAR FILTRATION RATE . ESTIMATED GFR I S NOT APPLICABLE FOR DIALYSIS PATIEN TS. Marine Scientist ID - AGUSTINA GTSH/FREE T4 IF [id number] 05:09:14 Test Item Value Reference Range Interpretation Comments THYROID STIMULATING HORMONE 4.532 uIU/mL 0.350-4.940 (BEAKER) (test code = 772) Marine Scientist ID - ADMINCBC W/PLT COUNT & AUTO [id number] 04:29:59 Test Item Value Reference Range Interpretation Comments WHITE BLOOD CELL COUNT (BEAKER) 6.4 K/ L 3.5-10.5 (test code = 775) RED BLOOD CELL COUNT (BEAKER) 4.41 M/ L 3.93-5.22 (test code = 761) HEMOGLOBIN (BEAKER) (test code = 12.3 GM/DL 11.2-15.7 410) HEMATOCRIT (BEAKER) (test code = 38.8 % 34.1-44.9 411) MEAN CORPUSCULAR VOLUME (BEAKER) 88.0 fL 79.4-94.8 (test code = 753) MEAN CORPUSCULAR HEMOGLOBIN 27.9 pg 25.6-32.2 (BEAKER) (test code = 751) MEAN CORPUSCULAR HEMOGLOBIN CONC 31.7 GM/DL 32.2-35.5 L (BEAKER) (test code = 752) RED CELL DISTRIBUTION WIDTH 14.5 % 11.7-14.4 H (BEAKER) (test code = 412) PLATELET COUNT (BEAKER) (test 180 K/CU MM 150-450 code = 756) MEAN PLATELET VOLUME (BEAKER) 9.2 fL 9.4-12.3 L (test code = 754) NUCLEATED RED BLOOD CELLS 0 /100 WBC 0-0 (BEAKER) (test code = 413) NEUTROPHILS RELATIVE PERCENT 48 % (BEAKER) (test code = 429) LYMPHOCYTES RELATIVE PERCENT 37 % (BEAKER) (test code = 430) MONOCYTES RELATIVE PERCENT 11 % (BEAKER) (test code = 431) EOSINOPHILS RELATIVE PERCENT 3 % (BEAKER) (test code = 432) BASOPHILS RELATIVE PERCENT 1 % (BEAKER) (test code = 437) NEUTROPHILS ABSOLUTE COUNT 3.08 K/ L 1.56-6.13 (BEAKER) (test code = 670) LYMPHOCYTES ABSOLUTE COUNT 2.35 K/ L 1.18-3.74 (BEAKER) (test code = 414) MONOCYTES ABSOLUTE COUNT (BEAKER) 0.67 K/ L 0.24-0.36 H (test code = 415) EOSINOPHILS ABSOLUTE COUNT 0.19 K/ L 0.04-0.36 (BEAKER) (test code = 416) BASOPHILS ABSOLUTE COUNT (BEAKER) 0.03 K/ L 0.01-0.08 (test code = 417) IMMATURE GRANULOCYTES-RELATIVE 1 % 0-1 PERCENT (BEAKER) (test code = 2801) VITAMIN [id number] 16:52:22 Test Item Value Reference Range Interpretation Comments VITAMIN B12 (BEAKER) (test code = 265 pg/mL 213-816 774) Marine Scientist ID - BSBASIC METABOLIC [id number] 16:37:56 Test Item Value Reference Range Interpretation Comments SODIUM (BEAKER) 142 meq/L 136-145 (test code = 381) POTASSIUM (BEAKER) 4.2 meq/L 3.5-5.1 Specimen slightly (test code = 379) hemolyzed CHLORIDE (BEAKER) 111 meq/L 98-107 H (test code = 382) CO2 (BEAKER) (test 24 meq/L 22-29 code = 355) BLOOD UREA NITROGEN 12 mg/dL 7-21 (BEAKER) (test code = 354) CREATININE (BEAKER) 0.71 mg/dL 0.57-1.25 Specimen slightly (test code = 358) hemolyzed GLUCOSE RANDOM 99 mg/dL 70-105 (BEAKER) (test code = 652) CALCIUM (BEAKER) 9.7 mg/dL 8.4-10.2 (test code = 697) EGFR (BEAKER) (test 81 mL/min/1.73 ESTIMA FAISAL GFR IS code = 1092) sq m NOT ACCURATE CREATININE CLEARANCE IN PREDICTING GLOMERULAR FILTRATION RATE . ESTIMATED GFR I S NOT APPLICABLE FOR DIALYSIS PATIEN TS. Marine Scientist ID - BSHEPATIC FUNCTION [id number] 16:37:56 Test Item Value Reference Range Interpretation Comments TOTAL PROTEIN (BEAKER) 6.3 gm/dL 6.0-8.3 Speci men slightly (test code = 770) hemolyzed ALBUMIN (BEAKER) (test 3.8 g/dL 3.5-5.0 Speci men slightly code = 1145) hemolyzed BILIRUBIN TOTAL 0.5 mg/dL 0.2-1.2 Specimen sli ghtly (BEAKER) (test code = hemoly zed 377) BILIRUBIN DIRECT 0.2 mg/dL 0.1-0.5 Specimen sl ightly (BEAKER) (test code = hemoly zed 706) ALKALINE PHOSPHATASE 61 U/L 40-150 (BEAKER) (test code = 346) AST (SGOT) (BEAKER) 20 U/L 5-34 Specimen slightly (test code = 353) hemolyzed ALT (SGPT) (BEAKER) 19 U/L 6-55 Specimen slightly (test code = 347) hemolyzed Marine Scientist ID - BSSpecimen slightly lipemicHIGH SENSITIVITY TROPONIN [id number] 16:30:53 Test Item Value Reference Range Interpretation Comments HIGH SENSITIVITY < pg/ml See_Comment [Automated message] TROPONIN I (test code = The system which [id number]) generated this result transmitted ref erence range: <=17. Th e reference range was not used to interpr et this result as normal/abnormal . Marine Scientist ID - BSThe GRADER PATROL STAT High Sensitivity Troponin-I results should be used in conjunctionwith other diagnostic information such as ECG, clinical observations and information, and patient symptoms to aid in the diagnosis of [place].PROTHROMBIN TIME/[id number] 16:10:50 Test Item Value Reference Range Interpretation Comments PROTIME (BEAKER) 13.3 seconds 11.9-14.2 (test code = 759) INR (BEAKER) (test 1.03 See_Comment [Automat ed message] code = 370) The system whic h generated this result transmitted ref erence range: <=5.90. The reference range was not used to int erpret this result as normal/abnormal . RECOMMENDED COUMADIN/WARFARIN INR THERAPY RANGESSTANDARD DOSE: 2.0 - 3.0 Includes: PROPHYLAXIS for venous thrombosis, systemic embolization; TREATMENT for venous thrombosis and/or pulmonary embolus.HIGH RISK: Target INR is 2.5-3.5 for patients with mechanical heart valves.CBC W/PLT COUNT & AUTO [id number] 16:02:10 Test Item Value Reference Range Interpretation Comments WHITE BLOOD CELL COUNT (BEAKER) 7.1 K/ L 3.5-10.5 (test code = 775) RED BLOOD CELL COUNT (BEAKER) 4.49 M/ L 3.93-5.22 (test code = 761) HEMOGLOBIN (BEAKER) (test code = 12.7 GM/DL 11.2-15.7 410) HEMATOCRIT (BEAKER) (test code = 38.9 % 34.1-44.9 411) MEAN CORPUSCULAR VOLUME (BEAKER) 86.6 fL 79.4-94.8 (test code = 753) MEAN CORPUSCULAR HEMOGLOBIN 28.3 pg 25.6-32.2 (BEAKER) (test code = 751) MEAN CORPUSCULAR HEMOGLOBIN CONC 32.6 GM/DL 32.2-35.5 (BEAKER) (test code = 752) RED CELL DISTRIBUTION WIDTH 14.5 % 11.7-14.4 H (BEAKER) (test code = 412) PLATELET COUNT (BEAKER) (test 195 K/CU MM 150-450 code = 756) MEAN PLATELET VOLUME (BEAKER) 9.5 fL 9.4-12.3 (test code = 754) NUCLEATED RED BLOOD CELLS 0 /100 WBC 0-0 (BEAKER) (test code = 413) NEUTROPHILS RELATIVE PERCENT 64 % (BEAKER) (test code = 429) LYMPHOCYTES RELATIVE PERCENT 26 % (BEAKER) (test code = 430) MONOCYTES RELATIVE PERCENT 8 % (BEAKER) (test code = 431) EOSINOPHILS RELATIVE PERCENT 1 % (BEAKER) (test code = 432) BASOPHILS RELATIVE PERCENT 0 % (BEAKER) (test code = 437) NEUTROPHILS ABSOLUTE COUNT 4.55 K/ L 1.56-6.13 (BEAKER) (test code = 670) LYMPHOCYTES ABSOLUTE COUNT 1.86 K/ L 1.18-3.74 (BEAKER) (test code = 414) MONOCYTES ABSOLUTE COUNT (BEAKER) 0.55 K/ L 0.24-0.36 H (test code = 415) EOSINOPHILS ABSOLUTE COUNT 0.07 K/ L 0.04-0.36 (BEAKER) (test code = 416) BASOPHILS ABSOLUTE COUNT (BEAKER) 0.03 K/ L 0.01-0.08 (test code = 417) IMMATURE GRANULOCYTES-RELATIVE 0 % 0-1 PERCENT (BEAKER) (test code = 2801) XR FOOT 3+ VW [id number] 19:58:14Small plantar calcaneal enthesophyte. No acute osseousabnormality. RL: 6200 END OF REPORT Ordering Physician: FUNMI BYNUM Clinical Indication: pain weight bearing Additional Clinical Information: Technical Quality: Good Comparison: None Technique: 3 view left foot Findings: There is a small plantar calcaneal these are fine. There is noLisfranc deformity. There is no fracture. [facility], Radiant Results Inft User - 08/14/2020 2:59 PM CDTOrdering P hysician: FUNMI BYNUMClinical Indication: pain weight bearingAdditional Clinical Information:Technical Quality: GoodComparison: NoneTechnique: 3 view left footFindings: There is a small plantar calcaneal these are fine. There is noLisfranc deformity. There is no fracture.IMPRESSIONSmall plantar calcaneal enthesophyte. No acute osseousabnormality.RL: 6200END OF REPORT [facility] [id number] 11:06:00 Test Item Value Reference Range Interpretation Comments HOMOCYSTEINE (BEAKER) (test code 12.1 umol/L 5.1-15.4 = 642) TSH/FREE T4 IF [id number] 11:00:00 Test Item Value Reference Range Interpretation Comments THYROID STIMULATING HORMONE 4.10 uIU/mL 0.35-4.94 (BEAKER) (test code = 772) VITAMIN B12 AND [id number] 11:00:00 Test Item Value Reference Range Interpretation Comments VITAMIN B12 (BEAKER) (test code = 502 pg/mL 213-816 774) FOLATE (BEAKER) (test code = 362) 15.1 ng/mL >=7.0 HEPATIC FUNCTION [id number] 10:23:00 Test Item Value Reference Range Interpretation Comments TOTAL PROTEIN (BEAKER) (test code = 6.7 gm/dL 6.0-8.3 770) ALBUMIN (BEAKER) (test code = 1145) 4.1 g/dL 3.5-5.0 BILIRUBIN TOTAL (BEAKER) (test code 0.6 mg/dL 0.2-1.2 = 377) BILIRUBIN DIRECT (BEAKER) (test 0.3 mg/dL 0.1-0.5 code = 706) ALKALINE PHOSPHATASE (BEAKER) (test 53 U/L 40-150 code = 346) AST (SGOT) (BEAKER) (test code = 17 U/L 5-34 353) ALT (SGPT) (BEAKER) (test code = 19 U/L 6-55 347) C-REACTIVE [id number] 10:23:00 Test Item Value Reference Range Interpretation Comments C-REACTIVE PROTEIN (BEAKER) (test 0.31 mg/dL 0.00-0.50 code = 676) URINALYSIS WITH MICROSCOPIC IF [id number] 10:19:00 Test Item Value Reference Range Interpretation Comments COLOR (BEAKER) (test code = 470) Light Yellow CLARITY (BEAKER) (test code = Hazy 469) SPECIFIC GRAVITY UA (BEAKER) 1.012 1.001-1.035 (test code = 468) PH UA (BEAKER) (test code = 467) 6.0 5.0-8.0 PROTEIN UA (BEAKER) (test code = Negative Negative 464) GLUCOSE UA (BEAKER) (test code = Negative Negative 365) KETONES UA (BEAKER) (test code = Negative Negative 371) BILIRUBIN UA (BEAKER) (test code Negative Negative = 462) BLOOD UA (BEAKER) (test code = Negative Negative 461) NITRITE UA (BEAKER) (test code = Positive Negative A 465) LEUKOCYTE ESTERASE UA (BEAKER) Large Negative A (test code = 466) UROBILINOGEN UA (BEAKER) (test 0.2 mg/dL 0.2-1.0 code = 463) SOURCE(BEAKER) (test code = 9815) URINALYSIS [id number] 10:19:00 Test Item Value Reference Range Interpretation Comments RBC UA (BEAKER) (test code = 519) 3 /HPF WBC UA (BEAKER) (test code = 520) 36 /HPF BACTERIA (BEAKER) (test code = Occasional 517) MUCUS (BEAKER) (test code = 1574) Rare SQUAMOUS EPITHELIAL (BEAKER) (test 1 /HPF code = 516) LIPID [id number] 06:14:00 Test Item Value Reference Range Interpretation Comments TRIGLYCERIDES (BEAKER) (test code = 104 mg/dL 540) CHOLESTEROL (BEAKER) (test code = 120 mg/dL 631) HDL CHOLESTEROL (BEAKER) (test code 48 mg/dL = 976) LDL CHOLESTEROL CALCULATED (BEAKER) 51 mg/dL (test code = 633) Triglyceride Reference Range: Low Risk <150 Borderline 150-199 High Risk 200- 499 Very High Risk >=500Cholesterol Reference Range: Low Risk <200 Borderline 200-239 High Risk >240HDL Cholesterol Reference Range: Low Risk >=60 High Risk <40LDL Cholesterol Reference Range: Optimal <100 Near Optimal 100-129 Borderline 130-159 High 160-189 Very High >=190 Fasting TROPONIN [id number] 06:07:00 Test Item Value Reference Range Interpretation Comments TROPONIN I (BEAKER) (test code = 397) < ng/mL 0.00-0.03 Troponin I (TnI) levels must be interpreted in the context of the presenting symptoms and the clinical findings. Elevated TnI levels indicate myocardial damage, but are not specific for ischemic heart disease. Elevated TnI levels are seen in patients with other cardiac conditions (including myocarditis and congestive heart failure), and slight TnI elevations occur in patients with other conditions, including sepsis, renal failure, acidosis, acute neurological disease, and persistent tachyarrhythmia.FastingMR, BRAIN, WITHOUT CONTRAST 2018-10-11 00:46:00Reason for exam:->StrokeWhat is the patient's sedation requirement?->No SedationFINAL REPORT MRI Brain without contrast Clinical History: StrokeStroke Technique: MRI of the brain utilizing axial T2, FLAIR, GRE, DWI; sagittal and coronal T1-weighted images. Comparisons: MRI brain dated 10/02/2018. Findings: There is no evidence of acute infarct or hemorrhage. Brain parenchyma is within normal limits. Ventricles are normal in size and configuration. There is no hydrocephalus or midline shift. There are no extra-axial fluid collections. The craniocervical junction is preserved. The major intracranial flow-voids appear patent. Paranasal sinuses are clear. Middle ears and mastoid air cells are clear. Intraorbital contents are unremarkable. No aggressive osseous or soft tissue lesions identified.Multiple prominent subcentimeter cervical lymph nodes with normal morphology may be reactive. IMPRESSION: No evidence of acute infarct, hemorrhage, or hydrocephalus. Signed: Mauro Landerosort Verified Date/Time: 10/11/2018 00:46:47 ONIN [id number] 00:37:00 Test Item Value Reference Range Interpretation Comments TROPONIN I (BEAKER) (test code = 397) < ng/mL 0.00-0.03 Troponin I (TnI) levels must be interpreted in the context of the presenting symptoms and the clinical findings. Elevated TnI levels indicate myocardial damage, but are not specific for ischemic heart disease. Elevated TnI levels are seen in patients with other cardiac conditions (including myocarditis and congestive heart failure), and slight TnI elevations occur in patients with other conditions, including sepsis, renal failure, acidosis, acute neurological disease, and persistent tachyarrhythmia.BASIC METABOLIC [id number] 00:28:00 Test Item Value Reference Range Interpretation Comments SODIUM (BEAKER) 141 meq/L 136-145 (test code = 381) POTASSIUM (BEAKER) 3.9 meq/L 3.5-5.1 (test code = 379) CHLORIDE (BEAKER) 109 meq/L 98-107 H (test code = 382) CO2 (BEAKER) (test 22 meq/L 22-29 code = 355) BLOOD UREA NITROGEN 12 mg/dL 7-21 (BEAKER) (test code = 354) CREATININE (BEAKER) 0.76 mg/dL 0.57-1.25 (test code = 358) GLUCOSE RANDOM 89 mg/dL 70-105 (BEAKER) (test code = 652) CALCIUM (BEAKER) 9.8 mg/dL 8.4-10.2 (test code = 697) EGFR (BEAKER) (test 75 mL/min/1.73 ESTIMA FAISAL GFR IS code = 1092) sq m NOT ACCURATE CREATININE CLEARANCE IN PREDICTING GLOMERULAR FILTRATION RATE . ESTIMATED GFR I S NOT APPLICABLE FOR DIALYSIS PATIEN TS. CBC W/PLT COUNT & AUTO [id number] 00:03:00 Test Item Value Reference Range Interpretation Comments WHITE BLOOD CELL COUNT (BEAKER) 8.4 K/ L 3.5-10.5 (test code = 775) RED BLOOD CELL COUNT (BEAKER) 4.75 M/ L 3.93-5.22 (test code = 761) HEMOGLOBIN (BEAKER) (test code = 13.2 GM/DL 11.2-15.7 410) HEMATOCRIT (BEAKER) (test code = 41.1 % 34.1-44.9 411) MEAN CORPUSCULAR VOLUME (BEAKER) 86.5 fL 79.4-94.8 (test code = 753) MEAN CORPUSCULAR HEMOGLOBIN 27.8 pg 25.6-32.2 (BEAKER) (test code = 751) MEAN CORPUSCULAR HEMOGLOBIN CONC 32.1 GM/DL 32.2-35.5 L (BEAKER) (test code = 752) RED CELL DISTRIBUTION WIDTH 14.3 % 11.7-14.4 (BEAKER) (test code = 412) PLATELET COUNT (BEAKER) (test 230 K/CU MM 150-450 code = 756) MEAN PLATELET VOLUME (BEAKER) 9.3 fL 9.4-12.3 L (test code = 754) NUCLEATED RED BLOOD CELLS 0 /100 WBC 0-0 (BEAKER) (test code = 413) NEUTROPHILS RELATIVE PERCENT 51 % (BEAKER) (test code = 429) LYMPHOCYTES RELATIVE PERCENT 37 % (BEAKER) (test code = 430) MONOCYTES RELATIVE PERCENT 9 % (BEAKER) (test code = 431) EOSINOPHILS RELATIVE PERCENT 2 % (BEAKER) (test code = 432) BASOPHILS RELATIVE PERCENT 1 % (BEAKER) (test code = 437) NEUTROPHILS ABSOLUTE COUNT 4.29 K/ L 1.56-6.13 (BEAKER) (test code = 670) LYMPHOCYTES ABSOLUTE COUNT 3.10 K/ L 1.18-3.74 (BEAKER) (test code = 414) MONOCYTES ABSOLUTE COUNT (BEAKER) 0.75 K/ L 0.24-0.36 H (test code = 415) EOSINOPHILS ABSOLUTE COUNT 0.13 K/ L 0.04-0.36 (BEAKER) (test code = 416) BASOPHILS ABSOLUTE COUNT (BEAKER) 0.06 K/ L 0.01-0.08 (test code = 417) IMMATURE GRANULOCYTES-RELATIVE 0 % 0-1 PERCENT (BEAKER) (test code = 2801) POCT-GLUCOSE [id number] 20:51:00 Test Item Value Reference Range Interpretation Comments POC-GLUCOSE METER 93 mg/dL 70-110 TESTED AT [facility] 67[address] (BEAKER) (test code = [place] [address] 1538) BASIC METABOLIC [id number] 04:11:00 Test Item Value Reference Range Interpretation Comments SODIUM (BEAKER) 140 meq/L 136-145 (test code = 381) POTASSIUM (BEAKER) 3.8 meq/L 3.5-5.1 (test code = 379) CHLORIDE (BEAKER) 112 meq/L 98-107 H (test code = 382) CO2 (BEAKER) (test 23 meq/L 22-29 code = 355) BLOOD UREA NITROGEN 13 mg/dL 7-21 (BEAKER) (test code = 354) CREATININE (BEAKER) 0.74 mg/dL 0.57-1.25 (test code = 358) GLUCOSE RANDOM 117 mg/dL 70-105 H (BEAKER) (test code = 652) CALCIUM (BEAKER) 9.2 mg/dL 8.4-10.2 (test code = 697) EGFR (BEAKER) (test 78 mL/min/1.73 ESTIMA FAISAL GFR IS code = 1092) sq m NOT ACCURATE CREATININE CLEARANCE IN PREDICTING GLOMERULAR FILTRATION RATE . ESTIMATED GFR I S NOT APPLICABLE FOR DIALYSIS PATIEN TS. PROTHROMBIN [id number] 04:00:00 Test Item Value Reference Range Interpretation Comments PROTIME (BEAKER) (test code = 15.0 seconds 11.9-14.2 H 759) INR (BEAKER) (test code = 370) 1.2 <=5.9 Effective 08/30/2018: PT Reference Range ChangeNew: 11.9-14.2 Previous: 11.7- 14.7RECOMMENDED COUMADIN/WARFARIN INR THERAPY RANGESSTANDARD DOSE: 2.0-3.0 Includes: PROPHYLAXIS for venous thrombosis, systemic embolization; TREATMENT for venous thrombosis and/or pulmonary embolus.HIGH RISK: Target INR is 2.5-3.5 for patients wiht mechanical heart valves.CBC W/PLT COUNT & AUTO [id number] 03:49:00 Test Item Value Reference Range Interpretation Comments WHITE BLOOD CELL COUNT (BEAKER) 7.8 K/ L 3.5-10.5 (test code = 775) RED BLOOD CELL COUNT (BEAKER) 4.50 M/ L 3.93-5.22 (test code = 761) HEMOGLOBIN (BEAKER) (test code = 12.5 GM/DL 11.2-15.7 410) HEMATOCRIT (BEAKER) (test code = 39.9 % 34.1-44.9 411) MEAN CORPUSCULAR VOLUME (BEAKER) 88.7 fL 79.4-94.8 (test code = 753) MEAN CORPUSCULAR HEMOGLOBIN 27.8 pg 25.6-32.2 (BEAKER) (test code = 751) MEAN CORPUSCULAR HEMOGLOBIN CONC 31.3 GM/DL 32.2-35.5 L (BEAKER) (test code = 752) RED CELL DISTRIBUTION WIDTH 14.3 % 11.7-14.4 (BEAKER) (test code = 412) PLATELET COUNT (BEAKER) (test 203 K/CU MM 150-450 code = 756) MEAN PLATELET VOLUME (BEAKER) 9.1 fL 9.4-12.3 L (test code = 754) NUCLEATED RED BLOOD CELLS 0 /100 WBC 0-0 (BEAKER) (test code = 413) NEUTROPHILS RELATIVE PERCENT 49 % (BEAKER) (test code = 429) LYMPHOCYTES RELATIVE PERCENT 39 % (BEAKER) (test code = 430) MONOCYTES RELATIVE PERCENT 8 % (BEAKER) (test code = 431) EOSINOPHILS RELATIVE PERCENT 2 % (BEAKER) (test code = 432) BASOPHILS RELATIVE PERCENT 0 % (BEAKER) (test code = 437) NEUTROPHILS ABSOLUTE COUNT 3.86 K/ L 1.56-6.13 (BEAKER) (test code = 670) LYMPHOCYTES ABSOLUTE COUNT 3.07 K/ L 1.18-3.74 (BEAKER) (test code = 414) MONOCYTES ABSOLUTE COUNT (BEAKER) 0.64 K/ L 0.24-0.36 H (test code = 415) EOSINOPHILS ABSOLUTE COUNT 0.17 K/ L 0.04-0.36 (BEAKER) (test code = 416) BASOPHILS ABSOLUTE COUNT (BEAKER) 0.03 K/ L 0.01-0.08 (test code = 417) IMMATURE GRANULOCYTES-RELATIVE 1 % 0-1 PERCENT (BEAKER) (test code = 2801) MR, BRAIN, WITHOUT [id number] 11:23:00FINAL REPORT MRI Brain without contrast Clinical History: Stroke Technique: MRIof the brain utilizing axial T2, FLAIR, GRE, DWI; sagittal and coronal T1-weighted images. Comparisons: None Findings: There is no evidence of acute infarct or hemorrhage. There is mild periventricularand subcortical white matter T2 hyperintensity, which is nonspecific but compatible with chronic microvascular ischemic change. There is generalized parenchymal volume loss without hydrocephalus, midline shift, or apparent mass effect. There are no extra-axial fluid collections. The craniocervical junction is preserved. The major intracranial flow-voids appear patent. IMPRESSION: No evidence of acuteinfarct, hemorrhage, or hydrocephalus. Signed: Marifer Fariaeport Verified Date/Time: 10/02/201811:23:26 Reading Location: [address] Neuro Reading Room HEMOGLOBIN [id number] 09:24:00 Test Item Value Reference Range Interpretation Comments HEMOGLOBIN A1C (BEAKER) (test code = 5.5 % 4.3-6.1 368) HEPATIC FUNCTION [id number] 03:32:00 Test Item Value Reference Range Interpretation Comments TOTAL PROTEIN (BEAKER) (test code = 6.0 gm/dL 6.0-8.3 770) ALBUMIN (BEAKER) (test code = 1145) 3.8 g/dL 3.5-5.0 BILIRUBIN TOTAL (BEAKER) (test code 0.5 mg/dL 0.2-1.2 = 377) BILIRUBIN DIRECT (BEAKER) (test 0.2 mg/dL 0.1-0.5 code = 706) ALKALINE PHOSPHATASE (BEAKER) (test 51 U/L 40-150 code = 346) AST (SGOT) (BEAKER) (test code = 16 U/L 5-34 353) ALT (SGPT) (BEAKER) (test code = 17 U/L 6-55 347) BASIC METABOLIC [id number] 03:32:00 Test Item Value Reference Range Interpretation Comments SODIUM (BEAKER) 141 meq/L 136-145 (test code = 381) POTASSIUM (BEAKER) 3.9 meq/L 3.5-5.1 (test code = 379) CHLORIDE (BEAKER) 111 meq/L 98-107 H (test code = 382) CO2 (BEAKER) (test 23 meq/L 22-29 code = 355) BLOOD UREA NITROGEN 11 mg/dL 7-21 (BEAKER) (test code = 354) CREATININE (BEAKER) 0.71 mg/dL 0.57-1.25 (test code = 358) GLUCOSE RANDOM 91 mg/dL 70-105 (BEAKER) (test code = 652) CALCIUM (BEAKER) 9.1 mg/dL 8.4-10.2 (test code = 697) EGFR (BEAKER) (test 81 mL/min/1.73 ESTIMA FAISAL GFR IS code = 1092) sq m NOT ACCURATE CREATININE CLEARANCE IN PREDICTING GLOMERULAR FILTRATION RATE . ESTIMATED GFR I S NOT APPLICABLE FOR DIALYSIS PATIGLENN CARTER. [id number] 03:23:00 Test Item Value Reference Range Interpretation Comments PARTIAL THROMBOPLASTIN TIME 24.1 seconds 22.5-36.0 (BEAKER) (test code = 760) PROTHROMBIN [id number] 03:22:00 Test Item Value Reference Range Interpretation Comments PROTIME (BEAKER) (test code = 13.7 seconds 11.9-14.2 759) INR (BEAKER) (test code = 370) 1.1 <=5.9 Effective 08/30/2018: PT Reference Range ChangeNew: 11.9-14.2 Previous: 11.7- 14.7RECOMMENDED COUMADIN/WARFARIN INR THERAPY RANGESSTANDARD DOSE: 2.0-3.0 Includes: PROPHYLAXIS for venous thrombosis, systemic embolization; TREATMENT for venous thrombosis and/or pulmonary embolus.HIGH RISK: Target INR is 2.5-3.5 for patients wiht mechanical heart valves.CBC W/PLT COUNT & AUTO [id number] 03:06:00 Test Item Value Reference Range Interpretation Comments WHITE BLOOD CELL COUNT (BEAKER) 8.0 K/ L 3.5-10.5 (test code = 775) RED BLOOD CELL COUNT (BEAKER) 4.50 M/ L 3.93-5.22 (test code = 761) HEMOGLOBIN (BEAKER) (test code = 12.4 GM/DL 11.2-15.7 410) HEMATOCRIT (BEAKER) (test code = 39.8 % 34.1-44.9 411) MEAN CORPUSCULAR VOLUME (BEAKER) 88.4 fL 79.4-94.8 (test code = 753) MEAN CORPUSCULAR HEMOGLOBIN 27.6 pg 25.6-32.2 (BEAKER) (test code = 751) MEAN CORPUSCULAR HEMOGLOBIN CONC 31.2 GM/DL 32.2-35.5 L (BEAKER) (test code = 752) RED CELL DISTRIBUTION WIDTH 14.4 % 11.7-14.4 (BEAKER) (test code = 412) PLATELET COUNT (BEAKER) (test 210 K/CU MM 150-450 code = 756) MEAN PLATELET VOLUME (BEAKER) 9.0 fL 9.4-12.3 L (test code = 754) NUCLEATED RED BLOOD CELLS 0 /100 WBC 0-0 (BEAKER) (test code = 413) NEUTROPHILS RELATIVE PERCENT 48 % (BEAKER) (test code = 429) LYMPHOCYTES RELATIVE PERCENT 41 % (BEAKER) (test code = 430) MONOCYTES RELATIVE PERCENT 9 % (BEAKER) (test code = 431) EOSINOPHILS RELATIVE PERCENT 2 % (BEAKER) (test code = 432) BASOPHILS RELATIVE PERCENT 0 % (BEAKER) (test code = 437) NEUTROPHILS ABSOLUTE COUNT 3.85 K/ L 1.56-6.13 (BEAKER) (test code = 670) LYMPHOCYTES ABSOLUTE COUNT 3.25 K/ L 1.18-3.74 (BEAKER) (test code = 414) MONOCYTES ABSOLUTE COUNT (BEAKER) 0.68 K/ L 0.24-0.36 H (test code = 415) EOSINOPHILS ABSOLUTE COUNT 0.18 K/ L 0.04-0.36 (BEAKER) (test code = 416) BASOPHILS ABSOLUTE COUNT (BEAKER) 0.03 K/ L 0.01-0.08 (test code = 417) IMMATURE GRANULOCYTES-RELATIVE 0 % 0-1 PERCENT (BEAKER) (test code = 2801) VITAMIN B12 AND [id number] 21:54:00 Test Item Value Reference Range Interpretation Comments VITAMIN B12 (BEAKER) (test code = 263 pg/mL 213-816 774) FOLATE (BEAKER) (test code = 362) 14.1 ng/mL >=7.0 URINALYSIS WITHOUT [id number] 21:50:00 Test Item Value Reference Range Interpretation Comments COLOR (BEAKER) (test code = 470) Light Yellow CLARITY (BEAKER) (test code = Hazy 469) SPECIFIC GRAVITY UA (BEAKER) 1.019 1.001-1.035 (test code = 468) PH UA (BEAKER) (test code = 467) 7.0 5.0-8.0 PROTEIN UA (BEAKER) (test code = Negative Negative 464) GLUCOSE UA (BEAKER) (test code = Negative Negative 365) KETONES UA (BEAKER) (test code = Negative Negative 371) BILIRUBIN UA (BEAKER) (test code Negative Negative = 462) BLOOD UA (BEAKER) (test code = Negative Negative 461) NITRITE UA (BEAKER) (test code = Positive Negative A 465) LEUKOCYTE ESTERASE UA (BEAKER) Moderate Negative A (test code = 466) UROBILINOGEN UA (BEAKER) (test 0.2 mg/dL 0.2-1.0 code = 463) SOURCE(BEAKER) (test code = 2795) TSH/FREE T4 IF [id number] 20:51:00 Test Item Value Reference Range Interpretation Comments THYROID STIMULATING HORMONE 2.00 uIU/mL 0.35-4.94 (BEAKER) (test code = 772) LIPID [id number] 20:30:00 Test Item Value Reference Range Interpretation Comments TRIGLYCERIDES (BEAKER) (test code = 150 mg/dL 540) CHOLESTEROL (BEAKER) (test code = 158 mg/dL 631) HDL CHOLESTEROL (BEAKER) (test code 51 mg/dL = 976) LDL CHOLESTEROL CALCULATED (BEAKER) 77 mg/dL (test code = 633) Triglyceride Reference Range: Low Risk <150 Borderline 150-199 High Risk 200- 499 Very High Risk >=500Cholesterol Reference Range: Low Risk <200 Borderline 200-239 High Risk >240HDL Cholesterol Reference Range: Low Risk >=60 High Risk <40LDL Cholesterol Reference Range: Optimal <100 Near Optimal 100-129 Borderline 130-159 High 160-189 Very High >=190PROTHROMBIN [id number] 16:47:00 Test Item Value Reference Range Interpretation Comments PROTIME (BEAKER) (test code = 14.0 seconds 11.9-14.2 759) INR (BEAKER) (test code = 370) 1.1 <=5.9 Effective 08/30/2018: PT Reference Range ChangeNew: 11.9-14.2 Previous: 11.7- 14.7RECOMMENDED COUMADIN/WARFARIN INR THERAPY RANGESSTANDARD DOSE: 2.0-3.0 Includes: PROPHYLAXIS for venous thrombosis, systemic embolization; TREATMENT for venous thrombosis and/or pulmonary embolus.HIGH RISK: Target INR is 2.5-3.5 for patients wiht mechanical heart valves.
--- NOTE | 2022-05-26 15:40 | RAD REPORT ---
EXAM DESCRIPTION: RADChest Single View05/26/2022 3:03 pm CLINICAL HISTORY: syncope, weakness COMPARISON: Chest Single View dated 10/01/2021; Chest Pa And Lat (2 Views) dated 02/14/2019; Chest Pa And Lat (2 Views) dated 10/31/2018; Chest Single View dated 10/10/2018 TECHNIQUE: Portable AP view of the chest. FINDINGS: The lungs are clear. No pneumothorax or effusion. The cardiomediastinal contours are unrem arkable. IMPRESSION: No acute cardiopulmonary process.
[2022-05-26 16:03] LABS: Absolute Lymphocytes (CBC) 2.4 K/uL (0.7-4.9); Hematocrit 40.1 % (36.0-45.0); Lymphocytes % 31.5 % (15.3-44.8); MCV 83.8 fL (80-100); MPV 7.4 fL (7.6-11.3); RBC Red Blood Cell Count 4.78 M/uL (3.86-4.86)
[2022-05-26 16:04] LABS: Protime INR 1.22
[2022-05-26 16:19] LABS: Albumin 3.8 g/dL (3.4-5.0); Bilirubin Direct 0.2 mg/dL (0-0.2); Bilirubin Total 0.5 mg/dL (0.2-1.0); Magnesium 2.3 mg/dL (1.6-2.4); Potassium 3.7 mmol/L (3.5-5.1); Troponin High Sensitivity 5.5 pg/mL (<58.9)
--- NOTE | 2022-05-26 17:07 | RAD REPORT ---
EXAM DESCRIPTION: CT - Head Brain Wo Cont - 05/26/2022 4:51 pm CLINICAL HISTORY: dizziness, syncope COMPARISON: Head angio dated 05/26/2022; Head angio dated 10/01/2021; Ct Stroke Brain Wo Cont dated TECHNIQUE: Noncontrast head CT images ad were obtained without IV contrast. Multiplanar reformats we re generated and reviewed. All CT scans are performed using dose optimization technique as appropriate and may include automated exposure control or mA/KV adjustment according to patient size. FINDINGS: No intracranial hemorrhage, mass, or edema. Midline structures are unremarkable. Normal ventricular caliber for age. Mendoza-white matter differentiation is preserved, without evidence of acute infarct. No abnormal extra- axial fluid collections. Mastoid air cells and visualized portions of the paranasal sinuses are clear. No acute bony findings. IMPRESSION: No evidence of an acute intracranial process.
--- NOTE | 2022-05-26 17:23 | RAD REPORT ---
EXAM DESCRIPTION: CT - Head angio - 05/26/2022 4:51 pm CLINICAL HISTORY: dizziness, syncope COMPARISON: Head angio dated 10/01/2021; Ct Stroke Brain Wo Cont dated 10/01/2021; Head Brain Wo Cont dated 05/26/2022 TECHNIQUE: CT angiography of the head was performed with MIPs. Images obtained following intravenous administration of 90 mL Isovue 370. All CT scans are performed using dose optimization technique as appropriate and may include automated exposure control or mA/KV adjustment according to patient size. FINDINGS: No evidence of large vessel occlusion. No evidence of aneurysm is detected. No flow-limiti ng stenosis or vascular malformation identified. Antegrade flow is seen in the vertebral arteries. The vertebral arteries are codominant. Patent right posterior communicating artery with diminutive right P1 segment. The visualized dural venous sinuses are patent. IMPRESSION: No evidence of large vessel occlusion or flow-limiting stenosis.
--- NOTE | 2022-05-26 17:27 | RAD REPORT ---
EXAM DESCRIPTION: CT - Neck Angio - 05/26/2022 4:51 pm CLINICAL HISTORY: dizziness, syncope COMPARISON: Neck Angio dated 10/01/2021; Neck Angio dated 10/10/2018; Neck Angio dated 10/01/2018 TECHNIQUE: CT angiography of the neck vessels was performed with MIPs. Images obtained following int ravenous administration of 90 mL Isovue 370. All CT scans are performed using dose optimization technique as appropriate and may include automated exposure control or mA/KV adjustment according to patient size. FINDINGS: A left aortic arch is identified with normal three vessel configuration of the great vesse ls. No significant flow abnormality is seen of the common carotid bilaterally. No significant stenosis is identified involving the cervical segments of both internal carotid arteri es. Normal flow is seen within both vertebral arteries. Carious and periodontal changes with small periapical collection along the root of the left second ma ndibular premolar. IMPRESSION: No significant flow abnormality of the neck vessels is identified. Incidental findings as above.
[2022-05-26 18:12] LABS: Urine Blood Negative (Negative); Urine Glucose Negative (Negative); Urine Protein Negative (Negative)
[2022-05-26] MEDS ORDERED: levoFLOXacin 750 MG TAB ONE (18:32)
[2022-05-26] MEDS ORDERED: CEFTRIAXONE 1000 MG/VIAL ONE (18:32)
--- NOTE | 2022-05-26 18:34 | EDPHYS ---
Physician Documentation [facility] Name: Sepideh Mendosa Age: 72 yrs Sex: Female : 1950 Arrival Date: 05/26/2022 Time: 13:38 Bed 14 Private MD: Rodrigo Johnson C ED Physician Michael Torres HPI: 05/26 14:26 This 72 yrs old Female presents to ER via Ambulatory with complaints of Near Syncope. [facility] 14:26 The patient has experienced near-syncope, almost passed out. Onset: The jm symptoms/episode began/occurred acutely, just prior to arrival. Duration: This was a single episode. Associated injury: The patient did not suffer any apparent associated injury. Associated signs and symptoms: Pertinent negatives:. Is a 72-year-old female with history of asthma, CVA, hyperglycemia, MVP, TIA the presents emerged department with complaints of a near syncopal episode which occurred earlier today. Patient states this occurred when she bent over while running her air. Patient states that she felt as if she was about to pass out with generalized weakness. Denies chest pain or shortness of breath. Historical: - Allergies: 14:17 Codeine; jh5 14:17 narcotics make me hallucinate; jh5 14:17 Sulfa (Sulfonamide Antibiotics); jh5 - PMHx: 14:17 Asthma; CVA; HYPOGLYCEMIA; mitral valve prolapse; TIA; jh5 - Immunization history:: Adult Immunizations up to date. - Social history:: Smoking status: Patient denies any tobacco usage or history of. ROS: 14:26 Constitutional: Negative for fever, chills, and weight loss, Cardiovascular: Negative jmm for chest pain, palpitations, and edema, Respiratory: Negative for shortness of breath, cough, wheezing, and pleuritic chest pain. 14:26 Neuro: Positive for weakness. 14:26 All other systems are negative. Exam: 14:26 Constitutional: This is a well developed, well nourished patient who is awake, alert, jmm and in no acute distress. Head/Face: atraumatic. Eyes: EOMI, no conjunctival erythema appreciated ENT: Moist Mucus Membranes Neck: Trachea midline, Supple Chest/axilla: Normal chest wall appearance and motion. Cardiovascular: Regular rate and rhythm. No edema appreciated Respiratory: Normal respirations, no respiratory distress appreciated Abdomen/GI: Non distended Back: Normal ROM Skin: General appearance color normal MS/ Extremity: Moves all extremities, no obvious deformities appreciated, no edema noted to the lower extremities Neuro: Awake and alert Psych: Behavior is normal, Mood is normal, Patient is cooperative and pleasant Vital Signs: 14:13 BP 149 / 68; Pulse 82; Resp 16; Temp 98.6; Pulse Ox 98% ; Weight 90.72 kg; Height 5 ft. jh5 5 in. (165.10 cm); Pain 0/10; 15:52 BP 126 / 66; Pulse 76; Resp 18; Pulse Ox 96% on R/A; Pain 0/10; ld1 16:16 BP 117 / 71; Pulse 66; Resp 18; Pulse Ox 95% on R/A; ld1 17:42 BP 128 / 99; Pulse 77; Resp 18; Pulse Ox 99% on R/A; ld1 14:13 Body Mass Index 33.28 (90.72 kg, 165.10 cm) jh5 MDM: 14:26 Patient medically screened. janie 18:31 Differential Diagnosis: cardiac arrhythmia, cerebrovascular accident, vasovagal jmm episode. Data reviewed: vital signs, nurses notes, lab test result(s), EKG, radiologic studies. Consideration of Admission/Observation. Management of patient was discussed with the following: Dr. Johnson. Independent interpretation of the following test(s) in the Emergency Department X-Ray: My interpretation is No infiltrate appreciated. Historians other than the Patient: . Counseling: I had a detailed discussion with the patient and/or guardian regarding: the historical points, exam findings, and any diagnostic results supporting the discharge/admit diagnosis, lab results, radiology results, the need for outpatient follow up, to return to the emergency department if symptoms worsen or persist or if there are any questions or concerns that arise at home. ED course: Patient states that she feels much better. Was able to ambulate without additional episodes of presyncope. Patient has no chest pain or shortness of breath. Labs are unremarkable. CTA and CT were unremarkable. I did discuss this with the patient's primary care provider who recommended administration of oral outpatient antibiotics will see the patient in clinic next week. I discussed this with the patient and the family whom agreed with the plan of care. They are otherwise given strict return precautions.. 05/26 14:35 Order name: Basic Metabolic Panel [facility] 05/26 14:35 Order name: CBC with Diff [facility] 05/26 14:35 Order name: LFT's [facility] 05/26 14:35 Order name: Magnesium [facility] 05/26 14:35 Order name: NT PRO-BNP [facility] 05/26 14:35 Order name: PT-INR [facility] 05/26 14:35 Order name: Troponin HS [facility] 05/26 16:04 Order name: CBC with Automated Diff; Complete Time: 16:55 EDMS 05/26 16:04 Order name: Protime (+INR); Complete Time: 16:55 EDMS 05/26 16:20 Order name: Basic Metabolic Panel; Complete Time: 16:55 EDMS 05/26 16:20 Order name: Liver (Hepatic) Function; Complete Time: 16:55 EDMS 05/26 16:20 Order name: Troponin High Sensitivity; Complete Time: 16:55 EDMS 05/26 16:20 Order name: NT PRO-BNP; Complete Time: 16:55 EDMS 05/26 16:20 Order name: Magnesium; Complete Time: 16:55 EDMS 05/26 14:35 Order name: XRAY Chest (1 view) [facility] 05/26 14:35 Order name: EKG; Complete Time: 14:36 [facility] 05/26 14:35 Order name: Cardiac monitoring; Complete Time: 15:52 [facility] 05/26 14:35 Order name: EKG - Nurse/Tech; Complete Time: 15:52 [facility] 05/26 14:35 Order name: IV Saline Lock; Complete Time: 15:52 [facility] 05/26 14:38 Order name: CT Head Brain wo Cont [facility] 05/26 14:38 Order name: Head Angio CT [facility] 05/26 14:38 Order name: Neck Angio CT [facility] 05/26 15:41 Order name: RAD; Complete Time: 15:42 EDMS 05/26 17:07 Order name: CT; Complete Time: 17:23 EDMS 05/26 17:24 Order name: CT; Complete Time: 17:30 EDMS 05/26 17:27 Order name: CT; Complete Time: 17:30 EDMS 05/26 17:54 Order name: Urine Culture [facility] 05/26 18:12 Order name: Urine Dipstick-Ancillary; Complete Time: 18:13 EDMS 05/26 14:35 Order name: Labs collected and sent; Complete Time: 15:52 [facility] 05/26 14:35 Order name: O2 Per Protocol; Complete Time: 15:10 [facility] 05/26 14:35 Order name: O2 Sat Monitoring; Complete Time: 15:10 [facility] 05/26 17:23 Order name: Urine Dipstick-Ancillary (obtain specimen); Complete Time: 18:12 [facility] Administered Medications: 18:34 Drug: LevaQUIN (levofloxacin) 750 mg Route: PO; ld1 18:34 Drug: Rocephin (cefTRIAXone) 1 grams Route: IV; Rate: calculated rate; Site: left hand; ld1 Disposition Summary: 05/26/22 18:33 Discharge Ordered Location: Home [facility] Condition: Stable [facility] Diagnosis - Syncope Near jm - UTI/ Urinary tract infection, site not specified [facility] Followup: [facility] - With: Rodrigo Johnson MD - When: 5 - 6 days - Reason: Recheck today's complaints, Continuance of care, Re-evaluation by your physician Discharge Instructions: - Discharge Summary Sheet [facility] - Near-Syncope jm - Urinary Tract Infection, Adult [facility] Forms: - Medication Reconciliation Form [facility] - Thank You Letter [facility] - Antibiotic Education [facility] - Prescription Opioid Use [facility] Prescriptions: - levofloxacin 250 mg Oral tablet - take 1 tablet by ORAL route once daily for 7 days; 7 tablet; Refills: 0, [facility] Product Selection Permitted Signatures: Dispatcher [employer] Michael Sumner MD MD cha Mickail, Joel, PA PA [facility] Diana Ge, RN RN ld1 Brianna Mcrae RN RN jh5
--- NOTE | 2022-05-26 18:34 | ER ---
Nurse's Notes [facility] Name: Sepideh Mendosa Age: 72 yrs Sex: Female : 1950 Arrival Date: 05/26/2022 Time: 13:38 Bed 14 Private MD: Rodrigo Johnson C Diagnosis: Syncope Near;UTI/ Urinary tract infection, site not specified Presentation: 05/26 14:13 Chief complaint: Patient states: i wasn't feeling real good when i got up, so i went [facility] into the bathroom to do my routine and when i leaned over to get my hair wet and I just got very dizzy and i felt like i had no legs and i started to go down. i got very dizzy and nauseous and it lasted about an hour. Coronavirus screen: Vaccine status: Patient reports receiving the 2nd dose of the covid vaccine. Client denies travel out of the [place] in the last 14 days. Ebola Screen: Patient negative for fever greater than or equal to 101.5 degrees Fahrenheit, and additional compatible Ebola Virus Disease symptoms Patient denies exposure to infectious person. Patient denies travel to an Ebola-affected area in the 21 days before illness onset. Initial Sepsis Screen: Does the patient meet any 2 criteria? No. Patient's initial sepsis screen is negative. Does the patient have a suspected source of infection? No. Patient's initial sepsis screen is negative. Risk Assessment: Do you want to hurt yourself or someone else? Patient reports no desire to harm self or others. 14:13 Method Of Arrival: Ambulatory [facility] 14:13 Acuity: EDDY 3 jh5 Triage Assessment: 14:17 General: Appears comfortable, slender, well groomed, well developed, Behavior is calm, jh5 cooperative, appropriate for age. Pain: Denies pain. Historical: - Allergies: 14:17 Codeine; [facility] 14:17 narcotics make me hallucinate; jh5 14:17 Sulfa (Sulfonamide Antibiotics); jh5 - PMHx: 14:17 Asthma; CVA; HYPOGLYCEMIA; mitral valve prolapse; TIA; jh5 - Immunization history:: Adult Immunizations up to date. - Social history:: Smoking status: Patient denies any tobacco usage or history of. Screenin:52 [facility] ED Fall Risk Assessment (Adult) History of falling in the last 3 months, ld1 including since admission No falls in past 3 months (0 pts). Abuse screen: Denies threats or abuse. Denies injuries from another. Nutritional screening: No deficits noted. Tuberculosis screening: No symptoms or risk factors identified. Assessment: 15:52 General: Appears in no apparent distress. comfortable, Behavior is calm, cooperative, ld1 appropriate for age. Pain: Denies pain. Neuro: Level of Consciousness is awake, alert, obeys commands, Oriented to person, place, time, situation. Cardiovascular: Capillary refill < 3 seconds Patient's skin is warm and dry. Respiratory: Airway is patent Respiratory effort is even, unlabored. GI: Abdomen is round non-distended. : No signs and/or symptoms were reported regarding the genitourinary system. EENT: No signs and/or symptoms were reported regarding the EENT system. Derm: No signs and/or symptoms reported regarding the dermatologic system. Musculoskeletal: No signs and/or symptoms reported regarding the musculoskeletal system. 17:42 Reassessment: Patient appears in no apparent distress at this time. No changes from ld1 previously documented assessment. Patient and/or family updated on plan of care and expected duration. Pain level reassessed. Patient is alert, oriented x 3, equal unlabored respirations, skin warm/dry/pink. 19:00 Reassessment: No changes from previously documented assessment. Patient and/or family ld1 updated on plan of care and expected duration. Pain level reassessed. Patient is alert, oriented x 3, equal unlabored respirations, skin warm/dry/pink. Vital Signs: 14:13 BP 149 / 68; Pulse 82; Resp 16; Temp 98.6; Pulse Ox 98% ; Weight 90.72 kg; Height 5 ft. 5 5 in. (165.10 cm); Pain 0/10; 15:52 BP 126 / 66; Pulse 76; Resp 18; Pulse Ox 96% on R/A; Pain 0/10; ld1 16:16 BP 117 / 71; Pulse 66; Resp 18; Pulse Ox 95% on R/A; ld1 17:42 BP 128 / 99; Pulse 77; Resp 18; Pulse Ox 99% on R/A; ld1 14:13 Body Mass Index 33.28 (90.72 kg, 165.10 cm) [facility] ED Course: 13:38 Patient arrived in ED. as 13:40 Rodrigo Johnson MD is Private Physician. as 14:17 Triage completed. [facility] 14:17 Arm band placed on left wrist. [facility] 14:25 Sherif Raygoza PA is PHCP. [facility] 14:25 Michael Torres MD is Attending Physician. [facility] 15:06 Diana Ge, RN is Primary Nurse. ld1 15:52 Patient has correct armband on for positive identification. Placed in gown. Bed in low ld1 position. Call light in reach. Side rails up X2. pvc monitor on. Pulse ox on. NIBP on. Door closed. Noise minimized. Warm blanket given. 15:52 Inserted saline lock: 20 gauge in right forearm, using aseptic technique. Blood ld1 collected. 15:52 Inserted saline lock: 22 gauge in right hand, using aseptic technique. Blood collected. ld1 15:52 No provider procedures requiring assistance completed. ld1 18:12 Urine Culture Sent. ld1 18:33 Rodrigo Johnson MD is Referral Physician. [facility] 19:32 IV discontinued, intact, bleeding controlled, No redness/swelling at site. Pressure ld1 dressing applied. IV discontinued, intact, bleeding controlled, No redness/swelling at site. Pressure dressing applied. Administered Medications: 18:34 Drug: LevaQUIN (levofloxacin) 750 mg Route: PO; ld1 18:34 Drug: Rocephin (cefTRIAXone) 1 grams Route: IV; Rate: calculated rate; Site: left hand; ld1 Medication: 15:52 VIS not applicable for this client. ld1 Outcome: 18:33 Discharge ordered by . [facility] 19:31 Discharged to home via wheelchair, with significant other. ld1 19:31 Condition: good 19:31 Discharge instructions given to patient, Instructed on discharge instructions, follow up and referral plans. medication usage, Demonstrated understanding of instructions, follow-up care, medications, Prescriptions given X 1. 19:32 Patient left the ED. ld1 Addendum: 05/30/2022 10:14 Addendum: Culture Results: Positive urine culture. Bacteria is resistant to, has a a5 intermediate sensitivity, or is not tested against prescribed antibiotics. Report given to SHWETA for further evaluation and then to craniologist for follow up with patient. Prescription called-in to pharmacy of choice. to [facility] pharmacy in [place], [place] per pt's request, called in Macrobid 100 mg BID x 7 days per Luanne Layne NP. Pt also instructed to stop Levaquin, pt verbalized understanding. Signatures: Sherif Raygoza PA PA jmm Martinez, Amelia as Calderon, Audri, RN RN aa5 Diana Ge RN RN ld1 Brianna Mcrae RN RN jh5
[2022-05-26 20:27] VITALS: TEMP 98.6
[2022-05-26 20:30] VITALS: BP 128/99; O2SAT 99
--- NOTE | 2022-05-27 16:31 | EKG ---
Test Date: 2022-05-26 Test Time: 15:28:50 [place] Department Worker: SHARRI MEASUREMENT RESULTS: Intervals: Rate: 68 MD: 230 QRSD: 98 QT: 396 QTc: 421 [place]: P: 44 MD: 230 QRS: 63 T: 34 INTERPRETIVE STATEMENTS: Sinus rhythm with 1st degree AV block Otherwise normal ECG Compared to ECG 10/01/2021 11:30:18 No significant changes Electronically Signed On 05-27-22 16:29:19 EQUESTRIAN TRAINER by Pierre Belcher
== END 2022-05-26 19:32 | disposition home or self-care (01) ==
LOC: ER 13:37
DX: N39.0 Urinary tract infection, site not specified (principal); Z88.2 Allergy status to sulfonamides; Z88.5 Allergy status to narcotic agent
CPT/HCPCS: 87088; 85025; 87086; 80048; 36415; 83735; 85610; 80076; 81003; 84484; 83880; 70450; 70496; 70498; 71045; Q9967; 87077; 87186; 93005; 96374; 99284

== ENCOUNTER 2023-05-31 08:27 | Inpatient (IN) | payer OTHER ==
[2023-05-31 13:46] VITALS: BMI 34.7
[2023-05-31] MEDS: Meropenem 1,000 MG in NA CHLORIDE 0.9% 100 ML IV SCH (14:02)
[2023-05-31 14:10] LABS: Absolute Lymphocytes (CBC) 2.2 K/uL (0.7-4.9); Hematocrit 39.1 % (36.0-45.0); Lymphocytes % 33.2 % (15.3-44.8); MCV 82.5 fL (80-100); Platelets 199 thou/uL (152-406); RBC Red Blood Cell Count 4.74 M/uL (3.86-4.86)
[2023-05-31 14:30] LABS: Albumin 3.6 g/dL (3.4-5.0); Bilirubin Total 0.9 mg/dL (0.2-1.0); Magnesium 2.2 mg/dL (1.6-2.4); Potassium 4.1 mEq/L (3.5-5.1); Protein, Total 6.6 g/dL (6.4-8.2)
--- NOTE | 2023-05-31 17:36 | RAD REPORT ---
EXAM DESCRIPTION: RAD - Chest Single View - 05/31/2023 5:15 pm CLINICAL HISTORY: PICC Placement COMPARISON: Chest Single View dated 05/26/2022; Chest Single View dated 10/01/2021; Chest Pa And Lat ( 2 Views) dated 02/14/2019; Chest Pa And Lat (2 Views) dated 10/31/2018 FINDINGS: Lines: Right subclavian approach PICC with tip overlying the superior cavoatrial junction. Lungs: Prominence of the pulmonary vasculature which is likely magnified by low lung volumes. Pleural: No significant pleural effusions or pneumothorax. Cardiac: Enlarged cardiopericardial silhouette which is probably magnified by low lung volumes. Mediastinum: Within normal limits. Bones: No acute fractures. Other: Breast prostheses IMPRESSION: PICC in satisfactory position. Prominence of vascular markings
[2023-05-31] MEDS: ROSUVASTATIN 10 MG TAB PO SCH (21:00)
[2023-05-31] MEDS: APIXABAN 5 MG TABLET PO SCH (21:00)
[2023-05-31 22:11] VITALS: O2SAT 97
--- NOTE | 2023-05-31 23:50 | HP ---
Date of Admission: 05/31/2023 Chief Complaint: Burning sensation on urination with frequent urination and not feeling good. History Of Present Illness: This is a 73-year-old pleasant female patient, who started to have urina ry complaints with burning sensation on urination, frequent urination, and just not feeling good, [facility] e into office on 05/12/2023. Her office urinalysis was abnormal consistent with urinary tract infect ion and she was given oral antibiotic Augmentin and her urine culture was done. Her urine culture ca me back growing Klebsiella and it was ESBL. So I did sit down and talk to the patient regarding this and she was evaluated again on 05/17/2023 and at that time, we discussed possibility of hospital adm ission for IV antibiotic therapy using meropenem or trying fosfomycin, and she wanted to try fosfomyc in before committing herself to IV antibiotics, so 3 g of fosfomycin was ordered which she took it as prescribed and also took Augmentin. Repeat urinalysis and urine culture were done on May 26 and that came back still growing Klebsiella and it is ESBL. This result was available yesterday. e patient was contacted and was requested to come to office today and after details were discussed wi her and her , arrangements were made for her to be admitted to hospital for IV antibiotic t herapy. Allergies: TO LEVAQUIN CAUSING RASH AND ITCHING, SULFA CAUSING RASH AND ITCHING, AND NITROFURANTOIN CAUSING HEADACHE. Medications: Ventolin inhaler 2 puffs 4 times a day as needed, Eliquis 5 mg 2 times a day, Breo 1 pu ff daily, Flonase nasal spray 1 spray each nostril 2 times a day, folic acid 0.8 mg daily, gabapentin 100 mg 2 times a day, lansoprazole 30 mg daily, metoprolol succinate 50 mg daily, rosuvastatin 20 mg daily, sertraline 25 mg daily, [place] Thyroid 90 mg daily, vitamin B12 1 mg daily. Review of Systems: Genitourinary: As mentioned above. All other systems reviewed and negative. Past Medical History: Significant for stroke, hypothyroidism, impaired fasting glucose, asthma which is mild persistent, hypertension, hyperlipidemia, paroxysmal atrial fibrillation, gastroesophageal r eflux disease, diverticulosis, lumbar spondylosis, and osteopenia. Past Surgical History: Bilateral mastectomy due to precancerous cells, cholecystectomy, hysterectomy , and shoulder surgery on the left shoulder. Family History: Father had coronary artery disease and pulmonary tuberculosis. Mother had diabetes, hypertension, and stroke. Brother, coronary artery disease, hypertension, Parkinson's disease. Social History: Negative for smoking and alcohol use. Physical Examination: Vital Signs: Height 5 feet inches, weight pounds, temperature , puls e , respiratory rate , blood pressure , oxygen saturation . General: Awake, alert, oriented, not in distress. HEENT: Head atraumatic, normocephalic. Conjunctivae nonerythematous. Sclerae white. Mouth, no thr ush or edema noted. Ears/Nose, no mass, lesion, discharge noted. Neck: Supple. No JVD, lymph nodes, bruit, thyromegaly noted. Lungs: Bilateral good equal air entry. Clear to auscultation. No rhonchi. No rales. Heart: Normal heart sounds, no murmur or gallop. Abdomen: Soft, bowel sounds normal. No guarding, rigidity, tenderness, mass, hepatosplenomegaly, dis tention, or bruit noted. Extremities: No leg edema. No calf tenderness. Skin: No rash, ulcer, cellulitis. Lymphatics: No lymph node enlargement in neck, supraclavicular, infraclavicular region. Neuro: No focal neurological deficit. Chest: Unremarkable. External Genitalia: Deferred. Rectal: Deferred. Laboratory Data: Urine culture done on outpatient basis from May 26 shows Klebsiella and it i s ESBL. Sodium 139, potassium 4.1, chloride 100, bicarb 24, BUN 16, creatinine 0.82, glucose 114. L iver function tests normal. White count 6.7, hemoglobin 12.9, platelets 199. Impression: 1.Urinary tract infection, organism Klebsiella, ESBL. 2.Hypertension. 3.Hyperlipidemia. 4.Paroxysmal atrial fibrillation. 5.Chronic anticoagulation therapy. 6.Hypothyroidism. 7.Impaired fasting glucose. 8.Gastroesophageal reflux disease. 9.Stroke. Plan: We will go ahead and admit the patient to hospital for further evaluation and management of th is problem. The patient is appropriate for inpatient and is [facility]. We will go ahead and start her on IV meropenem. PICC line was ordered. Social Service consultat ion was ordered. We will start meropenem 1000 mg IV every 12 hours and Social Service to make arrang ements for home IV antibiotic for 10 days. For her hypertension, we will continue antihypertensive m edication per order. Monitor blood pressure. If necessary, adjust medication. For her hyperlipidem ia, we will continue her statin therapy per order. No need for further intervention. For her gastro esophageal reflux disease, we will continue her pantoprazole while in the hospital, but at home, she will continue to take her lansoprazole. For paroxysmal atrial fibrillation, she is on Eliquis which will be continued while in the hospital and no need for further intervention. Details of plan of donna atment discussed with her. I will see her tomorrow morning for followup. EDDIE/MODL Voice ID: [id number]
[2023-06-01] MEDS: THYROID 30 MG TAB PO SCH (07:30)
[2023-06-01] MEDS: PANTOPRAZOLE 40MG TABLET PO SCH (07:30)
[2023-06-01] MEDS: SERTRALINE HCL 50 MG TAB PO SCH (09:00)
[2023-06-01] MEDS: METOPROLOL TAR 50 MG TAB PO SCH (09:00)
--- NOTE | 2023-06-01 19:48 | PN ---
Date of Progress Note: 06/01/2023 Subjective: The patient was seen this morning for followup. No new complaints, problems reported by the patient. She was lying in bed, not in any distress. Overall, her condition has remained stable overnight. Objective: Vital Signs: Reviewed. HEENT: Unremarkable. Lungs: Clear to auscultation. Heart: Sounds normal. Abdomen: Soft. Bowel sounds normal. No guarding, rigidity, tenderness, distention. Extremities: No leg edema. The patient has a PICC line in place in right arm. Impression: 1.Urinary tract infection, organism Klebsiella, ESBL. 2.Hypertension. 3.Hyperlipidemia. Plan: We will go ahead and continue current medications. Continue meropenem. Continue Eliquis and other current home medications. Social Service is working on getting home IV antibiotic arranged for her, and once that is arranged, plan is to discharge her to go home with home health care and home I V antibiotics. I have asked the patient to come and see me next week on Tuesday or Tuesday at the off ice and we will do her blood work at that time at office. EDDIE/MODL Voice ID: [id number] Report ID: [id number]
[2023-06-02 12:19] VITALS: BP 142/61; TEMP 97.1
--- NOTE | 2023-06-02 18:47 | DS ---
Date of Discharge: 06/02/2023 Disposition: Discharged to go home. Physical Examination: HEENT: Unremarkable. Lungs: Clear to auscultation. Heart: Sounds normal. Abdomen: Soft. Bowel sounds normal. No guarding, rigidity, tenderness, distention. Extremities: No leg edema. Discharge Medications And Instructions: 1.Continue all prior home medications. 2.Meropenem 1000 mg IV every 12 hours for 10 days. 3.Home health to assist the patient with IV antibiotics, flush PICC line per protocol, change PICC l ine dressing per protocol, and remove PICC line after IV antibiotic therapy completed. 4.The patient to follow up at my office next week on Tuesday between 8 a.m. and 10 a.m. Hospital Course: This is a 73-year-old pleasant female patient, who was admitted to the hospital wit h urinary tract infection with organism which was ESBL. Please see dictated H and P for more informa tion. After the patient was evaluated at the office, she was admitted to the hospital. Plan of jeanie castaneda was discussed with her. Once she got admitted to the hospital, we started her on IV meropenem. The patient had burning sensation on urination with frequent urination and just not feeling good wi th this infection and after we started her on this meropenem, all her symptoms have improved. She parsons s tolerated this IV antibiotics very well and PICC line was placed in her right arm. Social Service was consulted to make arrangements for home health care and home IV antibiotic therapy and after we w ere able to complete all the arrangements with help of Social Service, the patient was discharged to go home with this IV antibiotic therapy. Final Diagnoses: 1.Urinary tract infection. 2.Hypertension. 3.Atrial fibrillation. 4.Chronic anticoagulation therapy. 5.Hyperlipidemia. EDDIE/MODL Voice ID: [id number] Report ID: [id number]
== END 2023-06-02 14:43 | disposition home health service (06) | DRG 690 ==
LOC: 2ND 12:30
PROVIDERS: ADMIT Internal Medicine; ATTEND Internal Medicine
PROC: 02HV33Z Insertion of Infusion Device into Superior Vena Cava, Percutaneous Approach (ICD-10-PCS; principal; 2023-05-31)
DX: N39.0 Urinary tract infection, site not specified (principal); Z16.12 Extended spectrum beta lactamase (ESBL) resistance; E03.9 Hypothyroidism, unspecified; I10 Essential (primary) hypertension; E78.5 Hyperlipidemia, unspecified; I48.0 Paroxysmal atrial fibrillation; K21.9 Gastro-esophageal reflux disease without esophagitis; B96.1 Klebsiella pneumoniae [K. pneumoniae] as the cause of diseases classified elsewhere; R73.01 Impaired fasting glucose; Z88.2 Allergy status to sulfonamides; Z88.1 Allergy status to other antibiotic agents; Z88.8 Allergy status to other drugs, medicaments and biological substances; Z86.73 Personal history of transient ischemic attack (TIA), and cerebral infarction without residual deficits; Z90.13 Acquired absence of bilateral breasts and nipples; Z90.49 Acquired absence of other specified parts of digestive tract; Z79.01 Long term (current) use of anticoagulants; Z79.899 Other long term (current) drug therapy; Z90.710 Acquired absence of both cervix and uterus
CPT/HCPCS: 36415; 36569; 71045; 80053; 83735; 85025; J2185

== ENCOUNTER 2023-08-01 11:33 | Observation (INO) | payer OTHER ==
[2023-08-01 12:59] VITALS: BMI 35.1
[2023-08-01 15:12] LABS: Absolute Eosinophils 0.2 K/uL (0-0.5); Absolute Lymphocytes (CBC) 2.6 K/uL (0.7-4.9); Absolute Monocytes 0.7 K/uL (0.1-1.3); Absolute Neutrophil 4.7 K/uL (1.8-8.0); Basophils % 0.5 % (0-1.3); Hematocrit 40.2 % (36.0-45.0); Hemoglobin 12.9 g/dL (12.0-15.0); Lymphocytes % 31.6 % (15.3-44.8); MCH 26.9 pg (27.0-35.0); MCHC 32.2 g/dL (32.0-36.0); MCV 83.6 fL (80-100); MPV 7.5 fL (7.6-11.3); Monocytes % 8.7 % (3.3-12.3); Neutrophils % 57.2 % (41.7-73.7); Platelets 208 thou/uL (152-406); RBC Red Blood Cell Count 4.81 M/uL (3.86-4.86); Red Cell Distribution Width 15.2 % (12.1-15.2)
[2023-08-01] MEDS: SOTALOL HCL 80 MG TAB PO ONE (15:13)
[2023-08-01 15:28] LABS: Albumin 3.7 g/dL (3.4-5.0); Albumin/Globulin Ratio 1.1 (1.1-1.8); Anion Gap 7.7 mEq/L (5.0-15.0); Bilirubin Total 0.7 mg/dL (0.2-1.0); Globulin 3.3 g/dL (2.3-3.5); Magnesium 2.2 mg/dL (1.6-2.4); Potassium 3.7 mEq/L (3.5-5.1)
--- NOTE | 2023-08-01 17:42 | RAD REPORT ---
EXAM DESCRIPTION: RADChest Single View08/01/2023 3:23 pm CLINICAL HISTORY: afib COMPARISON: Chest Single View dated 05/31/2023; Chest Single View dated 05/26/2022; Chest Single View dated 10/01/2021; Chest Pa And Lat (2 Views) dated 02/14/2019 TECHNIQUE: Portable AP view of the chest. FINDINGS: The lungs are clear. Extracorporeal metallic densities and wires somewhat obscure evaluati on. No pneumothorax or effusion. The cardiomediastinal contours are unremarkable. IMPRESSION: No acute cardiopulmonary process.
[2023-08-01] MEDS: POTASSIUM CL SA 10 MEQ TAB PO ONE (22:49)
[2023-08-01] MEDS: APIXABAN 5 MG TABLET PO SCH (22:49)
[2023-08-02] MEDS: SOTALOL HCL 80 MG TAB PO ONE ×2 (03:06→14:53)
[2023-08-02 05:13] VITALS: O2SAT 94
--- NOTE | 2023-08-02 06:48 | HP ---
Date of Admission: 08/01/2023 Chief Complaint: Palpitation. History Of Present Illness: This is a 73-year-old pleasant female patient with history of paroxysmal atrial fibrillation, who is on chronic anticoagulation therapy with Eliquis with her prior history o f stroke related to atrial fibrillation, also takes metoprolol for hypertension and rate control. In the last few months, she is having increasing problem with palpitation to the extent that lately she is having this problem happening either almost everyday or every other day and it is lasting for a f ew hours. Says yesterday she had this palpitation feeling lasting for about 4 hours, started 8 o'maricel ck in the morning and it lasted until noontime. Denies any chest pain or shortness of breath. She c zeny in today with these worsening symptoms, and decision was made to admit her to hospital. I did co mmunicate her details with her split leather mosser, Dr. Belcher and reason for admission was to admit her to telemetry, so we can start her on antiarrhythmic medication, sotalol. Allergies: TO LEVAQUIN CAUSING RASH AND ITCHING. SULFA CAUSES RASH AND ITCHING. NITROFURANTOIN CAU SES HEADACHE. Medications: List reviewed. Review of Systems: Cardiovascular: As mentioned above. BROTHEL KEEPER: Has persistent weakness on right side due to prior stroke. All other systems reviewed and negative. Social History: Negative for smoking and alcohol use. Past Medical History: Significant for hypertension, hypothyroidism, stroke, mild persistent asthma, depression, hyperlipidemia, impaired fasting glucose, diverticulosis, chronic headache, allergic rhin itis, paroxysmal atrial fibrillation, chronic fatigue, chronic anticoagulation therapy for atrial fib rillation, mastectomy due to precancerous cells, multiple breast surgeries between 1989 and 1993 due to staph infection, status post bilateral saline implant, cholecystectomy, hysterectomy, shoulder hernan zo on the left side. Family History: Father , had coronary artery disease and tuberculosis. Mother ; had diabete s, hypertension, and stroke. Brother has coronary artery disease, hypertension, diabetes, and Avani son disease. Physical Examination: Vital Signs: Blood pressure 115/69, pulse 80, temperature 97.8, respiratory rate 16, weight 212.8 po unds, height 65.5 inches. General: Awake, alert, oriented, not in distress. HEENT: Head atraumatic, normocephalic. Conjunctivae nonerythematous. Sclerae white. Mouth, no thr ush or edema noted. Ears/Nose, no mass, lesion, discharge noted. Neck: Supple. No JVD, lymph nodes, bruit, thyromegaly noted. Lungs: Bilateral good equal air entry. Clear to auscultation. No rhonchi. No rales. Heart: Normal heart sounds, no murmur or gallop. Abdomen: Soft, bowel sounds normal. No guarding, rigidity, tenderness, mass, hepatosplenomegaly, dis tention, or bruit noted. Extremities: No leg edema. No calf tenderness. Skin: No rash, ulcer, cellulitis. Lymphatics: No lymph node enlargement in neck, supraclavicular, infraclavicular region. Neuro: No focal neurological deficit. Chest: Unremarkable. External Genitalia: Deferred. Rectal: Deferred. BROTHEL KEEPER: Exam shows left-sided weakness with power 4/5 in left upper and left lower extremity, which is a chronic finding for her due to prior stroke. Laboratory Data: WBC 8.3, hemoglobin 12.9, platelets 208. Sodium 140, potassium 3.7, chloride 110, bicarb 26, BUN 14, creatinine 0.85, glucose 115. Liver function tests normal. Magnesium 2.2. Chest x-ray . Impression: 1.Atrial fibrillation, paroxysmal. 2.Chronic anticoagulation therapy. 3.Stroke with left-sided hemiparesis, due to atrial fibrillation. 4.Hypertension. 5.Hypothyroidism. 6.Mild persistent asthma. 7.Hyperlipidemia. 8.Impaired fasting glucose. 9.Diverticulosis. Plan: We will go ahead and admit the patient to hospital for further evaluation and management of th is problem. The patient is appropriate for observation, and we will admit her to telemetry. Initial EKG had shown normal sinus rhythm and that is not unusual because the patient has paroxysmal atrial fibrillation and she is not in persistent chronic atrial fibrillation problem. We will start her on sotalol 80 mg every 12 hours and total 3 doses will be given and after that, we will repeat EKG and d epending on that, we will decide about possible discharge to go home with sotalol in place of metopro lol. Her anticoagulation which is Eliquis will be continued. Consult Cardiology, Dr. Belcher. For o ther medical problem that is hypertension, no need for further intervention. For hypothyroidism, she takes her thyroid medication, which she should continue and no need for further intervention at this point. For hyperlipidemia, the patient will continue her statin therapy upon discharge from the [facility] and it will not require any further intervention while she is here. Details of plan of treatme nt discussed with her, and I will see her tomorrow morning for followup. Total time spent minutes. EDDIE/JEANNETTE Voice ID: [id number]
[2023-08-02] MEDS: POTASSIUM CL SA 10 MEQ TAB PO ONE (08:07)
--- NOTE | 2023-08-02 12:04 | P.CNS ---
Date of Consult: 08/02/23 Chief Complaint: Atrial fibrillation History of Present Illness: Patient with PMH of pAF, presented with worsening palpitations to PCP clinic, admitted for sotalol load, denies any other cardiac symptoms, no chest pain, no syncope. Allergies Sulfa (Sulfonamide Antibiotics) Allergy (Unverified 10/03/15 16:08) Unknown codeine [Codeine] Adverse Reaction (Severe, Verified 12/15/11 15:07) Shortness of breath Home Medications: Ascorbic Acid [Vitamin C] 1,000 mg PO DAILY 12/15/11 Cholecalciferol (Vitamin D3) [Vitamin D] 50 mcg PO BID 12/15/11 Multi-VIT(Centravite Senior) [Centrum Silver] 1 each PO DAILY 12/15/11 Albuterol Sulfate [Ventolin Hfa] 90 mcg IH PRN 05/31/23 Apixaban [Eliquis] 5 mg PO BID 05/31/23 Folic Acid 0.8 mg PO BEDTIME 05/31/23 Losartan Potassium [Cozaar] 12.5 mg PO DAILY 05/31/23 Metoprolol Tartrate [Lopressor] 50 mg PO DAILY 05/31/23 Rosuvastatin Calcium [Crestor] 20 mg PO BEDTIME 05/31/23 Sennosides [Vegetable Laxative] 17.2 mg PO PRN 05/31/23 Sertraline [Zoloft] 25 mg PO DAILY 05/31/23 Thyroid,Pork [[place] Thyroid] 90 mg PO DAILY 05/31/23 Ubidecarenone [Co Q-10] 400 mg PO BEDTIME 05/31/23 Fluticasone/Salmeterol [Advair 250-50 Diskus] 1 tab PO DAILY 08/01/23 - Past Medical/Surgical History Diabetic: No -: HLD -: HTN -: A. Fib -: TIA -: CVA -: Hysterectomy -: Rectocele -: Cystocele -: Mastectomy Bilateral -: Cholecystectomy - Social History Smoking Status: Never smoker Alcohol use: No CD- Drugs: No Caffeine use: Yes Place of Residence: Home Review of Systems 10-point ROS is otherwise unremarkable Physical Examination Temp Pulse Resp BP Pulse Ox 97 F 64 16 127/69 96 08/02/23 08:00 08/02/23 08:00 08/02/23 08:00 08/02/23 08:00 08/02/23 08:00 General: Alert, Oriented x3 HEENT: Atraumatic Neck: Supple Respiratory: Clear to auscultation bilaterally Cardiovascular: No edema, Normal S1 S2 Gastrointestinal: Normal bowel sounds Laboratory Data (last 24 hrs) 08/01/23 08/01/23 15:03 15:03 WBC 8.30 Hgb 12.9 Hct 40.2 Plt Count 208 Sodium 140 Potassium 3.7 BUN 14 Creatinine 0.85 Glucose 115 H Magnesium 2.2 Total Bilirubin 0.7 AST 13 L ALT 26 Alkaline Phosphatase 68 - Problems (1) Atrial fibrillation Current Visit: Yes Status: Acute Plan: patient s/p Sotalol 80 mg x2 doses, repeat EKG after 3rd dose, if QTc is normal then good to discharge Conitnue Eliquis 5 mg po BID (2) HTN (hypertension) Current Visit: Yes Status: Acute Plan: continue losartan 25 mg daily (3) HLD (hyperlipidemia) Current Visit: Yes Status: Acute Plan: Continue Crestor 20 mg daily
[2023-08-02 16:16] VITALS: BP 117/52; TEMP 97.1
--- NOTE | 2023-08-03 04:30 | DS ---
Date of Discharge: 08/02/2023 Disposition: Discharged to go home. Physical Examination: HEENT: Unremarkable. Lungs: Clear to auscultation. Heart: Sounds normal. Abdomen: Soft. Bowel sounds normal. No guarding, rigidity, tenderness, distention. Extremities: No leg edema. Laboratory Data: Labs reviewed and see history and physical exam documentation for more details. Hospital Course: This is a 73-year-old female patient, who was admitted to the hospital yesterday af ter she was evaluated at office with worsening of paroxysmal atrial fibrillation problem. Please see dictated H and P for more information. After the patient was evaluated at office, details were disc ussed with night custodian, Dr. Belcher, and the patient was admitted to hospital to telemetry unit to art antiarrhythmic medication, sotalol. She was given total 3 doses of sotalol 80 mg per dose and af ter last dose today, EKG was done which was reviewed and after that, the patient was discharged to go home in stable condition. The patient's vital signs have remained stable and this morning when I sa w her, I did give her discharge instructions and discharge instructions and will be as below. The alex toya was instructed to come see me next week for outpatient followup and she was also instructed to follow up with night custodian in 2 weeks. Discharge Medications/instructions: 1.Continue all prior home medications except stop metoprolol and start sotalol 80 mg 2 times a day a nd prescription was sent to her pharmacy. 2.Follow up at my office next week and follow up with night custodian in 2 weeks. Discharge Diagnoses: 1.Paroxysmal atrial fibrillation. 2.Stroke with left-sided hemiparesis. 3.Chronic anticoagulation therapy. EDDIE/MODL Voice ID: [id number] Report ID: [id number]
--- NOTE | 2023-08-03 13:09 | EKG ---
Test Date: 2023-08-02 Test Time: 16:00:48 Heat Treater Helper: SUZI MEASUREMENT RESULTS: Intervals: Rate: 61 [place]: 250 QRSD: 86 QT: 436 QTc: 438 [place]: P: 67 [place]: 250 QRS: 83 T: 72 INTERPRETIVE STATEMENTS: Sinus rhythm with 1st degree AV block Otherwise normal ECG Compared to ECG 05/26/2022 15:28:50 No significant changes Electronically Signed On 08-03-23 13:06:03 CDT by Pierre Belcher
== END 2023-08-02 17:33 | disposition home or self-care (01) ==
LOC: 2ND 11:33
PROVIDERS: ADMIT Internal Medicine; ATTEND Internal Medicine
DX: I48.0 Paroxysmal atrial fibrillation (principal); I69.354 Hemiplegia and hemiparesis following cerebral infarction affecting left non-dominant side; E03.9 Hypothyroidism, unspecified; J45.909 Unspecified asthma, uncomplicated; F32.A Depression, unspecified; E78.5 Hyperlipidemia, unspecified; R73.01 Impaired fasting glucose; R53.82 Chronic fatigue, unspecified; R51.9 Headache, unspecified; J30.9 Allergic rhinitis, unspecified; K57.90 Diverticulosis of intestine, part unspecified, without perforation or abscess without bleeding; Z79.01 Long term (current) use of anticoagulants; Z86.73 Personal history of transient ischemic attack (TIA), and cerebral infarction without residual deficits; Z88.2 Allergy status to sulfonamides; Z88.1 Allergy status to other antibiotic agents
CPT/HCPCS: 36415; 71045; 80053; 83735; 85025; 93005; G0378; G0379

== ENCOUNTER 2024-07-25 12:45 | Observation (INO) | payer OTHER ==
[2024-07-25 13:16] VITALS: BMI 36.1
[2024-07-25] MEDS ORDERED: SENOSIDES 8.6 MG TAB PO PRN (14:00)
[2024-07-25 14:07] LABS: Absolute Basophils 0.1 K/uL (0-0.5); Absolute Eosinophils 0.2 K/uL (0-0.5); Absolute Lymphocytes (CBC) 2.6 K/uL (0.7-4.9); Absolute Monocytes 0.8 K/uL (0.1-1.3); Basophils % 0.9 % (0-1.3); Eosinophils % 2.1 % (0-4.4); Hematocrit 38.6 % (36.0-45.0); Hemoglobin 12.9 g/dL (12.0-15.0); Lymphocytes % 33.9 % (15.3-44.8); MCH 27.2 pg (27.0-35.0); MCHC 33.6 g/dL (32.0-36.0); MCV 81.2 fL (80-100); MPV 7.5 fL (7.6-11.3); Neutrophils % 52.1 % (41.7-73.7); Platelets 186 thou/uL (152-406); RBC Red Blood Cell Count 4.75 M/uL (3.86-4.86); Red Cell Distribution Width 15.2 % (12.1-15.2)
--- NOTE | 2024-07-25 14:19 | RAD REPORT ---
EXAM: Chest Single View HISTORY: 74 years Female chest pain COMPARISON: 08/01/2023 FINDINGS: LUNGS/PLEURA: The lungs are clear. No pleural effusions or pneumothorax. No pulmonary edema. CARDIAC/MEDIASTINUM: The cardiac silhouette is within normal limits. UPPER ABDOMEN: No significant abnormality. BONES: No acute abnormality. LINES/TUBES/OTHER: N/A IMPRESSION: No evidence of acute cardiopulmonary disease. No significant change from prior.
[2024-07-25 14:27] LABS: Albumin 3.3 g/dL (3.4-5.0); Albumin/Globulin Ratio 1.2 (1.1-1.8); Anion Gap 7.7 mEq/L (5.0-15.0); Bilirubin Total 0.7 mg/dL (0.2-1.0); Globulin 2.8 g/dL (2.3-3.5); Magnesium 2.2 mg/dL (1.6-2.4); Potassium 3.7 mEq/L (3.5-5.1); Protein, Total 6.1 g/dL (6.4-8.2); Troponin High Sensitivity 8.4 pg/mL (<58.9)
[2024-07-25] MEDS: POTASSIUM CL SA 10 MEQ TAB PO ONE (20:38)
[2024-07-25] MEDS: FOLIC ACID 1 MG TABLET PO SCH (20:38)
[2024-07-25] MEDS: SOTALOL HCL 80 MG TAB PO SCH (20:38)
[2024-07-25] MEDS: ROSUVASTATIN 10 MG TAB PO SCH (20:38)
[2024-07-25] MEDS ORDERED: HOME MED 1 EA UNK (Rosuvastatin Calcium [Crestor] 20 MG Tablet) PO SCH (21:00)
[2024-07-25] MEDS: ASPIRIN EC 81 MG TAB PO ONE (23:33)
--- NOTE | 2024-07-26 00:29 | HP ---
Date of Admission: 07/25/2024 Chief Complaint: Chest pain and shortness of breath. History Of Present Illness: Ms. Mendosa is a 74-year-old pleasant female patient, who came into my office today and reported that in last few weeks, she is having sharp chest pain in the area below her medial part of the left breast. It lasts for few seconds to few minutes, it has gotten worse over a period of time in last few weeks with increased frequency. Describes her pain sometimes as tightness and sometimes sharp. The patient went to see barrel ribs solderer, Dr. Belcher, with this and had a stress test which she was told that her stress test was abnormal and she was recommended to have cardiac cath, but while she was waiting on outpatient cardiac cath appointment, she came to see me with worsening of symptoms and after I saw her, I did contact Dr. Belcher and decided to admit her to hospital for further evaluation and management. The patient is also complaining of having shortness of breath. She denies any associated diaphoresis or any radiation of pain. She says she is having shortness of breath almost all the time lately. She was prescribed diltiazem [address] Belcher recently when he saw her for this chest pain problems. Review of Systems: Cardiovascular: As mentioned above. All other systems reviewed and negative. Allergies: TO LEVAQUIN CAUSING RASH AND ITCHING, SULFA CAUSING RASH AND ITCHING, NITROFURANTOIN CAUSING HEADACHE. Medications: Ventolin inhaler 2 puffs 4 times a day as needed for shortness of breath, Eliquis 5 mg 2 times a day, diltiazem 120 mg daily, Breo Ellipta inhaler 1 puff by mouth daily, fluticasone nasal spray 1 spray each nostril 2 times a day, folic acid 0.8 mg daily, furosemide 20 mg daily, gabapentin 100 mg 2 times a day, lansoprazole 30 mg daily, rosuvastatin 20 mg daily in evening, sertraline 25 mg daily, sotalol 80 mg 2 times a day, [place] Thyroid 120 mg daily, vitamin B12 1 mg daily. Past Medical History: Significant for stroke, hypothyroidism, impaired fasting glucose, mild persistent asthma, hypertension, hyperlipidemia, paroxysmal atrial fibrillation, gastroesophageal reflux disease, diverticulosis, osteopenia, lumbar spondylosis. Past Surgical History: Mastectomy due to precancerous lesion and had multiple breast surgeries between 1989 and 1993 due to Staph infection and after mastectomy, she had saline implant. Prior surgical history also significant for cholecystectomy, hysterectomy, and left shoulder surgery. Family History: Father , had coronary artery disease and tuberculosis. Mother , had diabetes, hypertension, stroke. Brother had coronary artery disease, diabetes, hypertension, Parkinson's disease. Social History: Negative for smoking. Negative for alcohol use. Physical Examination: Vital Signs: Blood pressure 95/61, pulse 65, temperature 97.4, respiratory rate 16, weight 217.8 pounds, height 65.5 inches. General: Awake, alert, oriented, not in distress. HEENT: Head atraumatic, normocephalic. Conjunctivae nonerythematous. Sclerae white. Mouth, no thrush or edema noted. Ears/Nose, no mass, lesion, discharge noted. Neck: Supple. No JVD, lymph nodes, bruit, thyromegaly noted. Lungs: Bilateral good equal air entry. Clear to auscultation. No rhonchi. No rales. Heart: Normal heart sounds, no murmur or gallop. Abdomen: Soft, bowel sounds normal. No guarding, rigidity, tenderness, mass, hepatosplenomegaly, distention, or bruit noted. Extremities: No leg edema. No calf tenderness. Skin: No rash, ulcer, cellulitis. Lymphatics: No lymph node enlargement in neck, supraclavicular, infraclavicular region. Neuro: No focal neurological deficit. Chest: Unremarkable. External Genitalia: Deferred. Rectal: Deferred. Laboratory Data: WBC 7.6, hemoglobin 12.9, platelets 186. Sodium 140, potassium 3.7, chloride 111, bicarb 25, BUN 14, creatinine 0.81, glucose 96. Liver function tests unremarkable. Troponin 8.4. ProBNP 1153. Chest x-ray, no acute cardiopulmonary changes. EKG shows sinus rhythm with 1st degree AV block, incomplete right bundle branch block, inferior infarct age undetermined. Impression: 1. Unstable angina. 2. Hypothyroidism. 3. Hypertension. 4. Hyperlipidemia. 5. Paroxysmal atrial fibrillation. 6. Chronic anticoagulation therapy. 7. Gastroesophageal reflux disease. 8. Diverticulosis. Plan: We will go ahead and admit the patient to hospital for further evaluation and management of this problem. The patient is appropriate for inpatient and is expected to spend 2 midnights in hospital. We will admit her to telemetry unit. Initial cardiac enzyme was negative. We will follow serial cardiac enzyme on her. Consult barrel ribs solderer, Dr. Belcher, and he will plan to do coronary angiogram on her. Further plan of treatment will depend on findings of coronary angiogram. For her atrial fibrillation, she is on Eliquis and we will hold it in view of possible coronary angiogram tomorrow. She is on diltiazem at home, but I will not give it to her considering her blood pressure running on the low side. For her hyperlipidemia, we will continue Rosuvastatin per order. No need for further intervention. We will continue sotalol for her atrial fibrillation. For hypothyroidism, she is on [place] Thyroid and we will continue that. For asthma, we do not have Breo Ellipta inhaler available, but we will use her home supply. Total time spent today was 80 minutes including evaluation and management for this hospital admission, review of the office visit record, communication with her barrel ribs solderer Dr. Belcher, who was contacted by me today and details were discussed with him. I will see her tomorrow for followup. EDDIE/MODL Voice ID: [id number]
[2024-07-26] MEDS: THYROID 30 MG TAB PO SCH (05:27)
[2024-07-26] MEDS: SERTRALINE HCL 50 MG TAB PO SCH (09:00)
[2024-07-26] MEDS: PANTOPRAZOLE 40MG TABLET PO SCH (09:00)
[2024-07-26] MEDS ORDERED: HOME MED 1 EA UNK (Thyroid,Pork [Armour Thyroid] 90 MG Tablet) PO SCH (09:00)
[2024-07-26] MEDS: Multi-VIT(Centravite Senior) 1 TAB TAB PO SCH (09:00)
[2024-07-26] MEDS: ASPIRIN EC 81 MG TAB PO SCH (09:00)
[2024-07-26] MEDS ORDERED: HOME MED 1 EA UNK (Lansoprazole [Prevacid] 30 MG Capsule.Dr) PO SCH (09:00)
[2024-07-26] MEDS: FUROSEMIDE 20 MG TABLET PO SCH (09:00)
[2024-07-26] MEDS: HOME MED 1 EA UNK (Fluticasone Propion/Salmeterol [Advair 250-50 Diskus] Blst.W.Dev) PO SCH (09:00)
--- NOTE | 2024-07-26 11:07 | P.CNS ---
Date of Consult: 07/26/24 Chief Complaint: fatigue, SOB History of Present Illness: Patient with PMH of AF, HTN, abnormal stress test, presented with worsening fatigue, SOB, DUFFY, she also report on/off chest pain for the last month, denies having palpitations, no syncope, chest pain is left sided last few minutes, she was seen in cardiology office, had a stress test done that was abnormal. Allergies Sulfa (Sulfonamide Antibiotics) Allergy (Verified 07/25/24 20:36) Hives/Rash codeine [Codeine] Adverse Reaction (Severe, Verified 12/15/11 15:07) Shortness of breath Home medications list reviewed: Yes Home Medications: Ascorbic Acid [Vitamin C] 1,000 mg PO DAILY 12/15/11 Cholecalciferol (Vitamin D3) [Vitamin D] 50 mcg PO BID 12/15/11 Multi-VIT(Centravite Senior) [Centrum Silver] 1 each PO DAILY 12/15/11 Apixaban [Eliquis] 5 mg PO BID 05/31/23 Folic Acid 0.8 mg PO BEDTIME 05/31/23 Rosuvastatin Calcium [Crestor] 20 mg PO BEDTIME 05/31/23 Sennosides [Vegetable Laxative] 17.2 mg PO PRN 05/31/23 Sertraline [Zoloft] 25 mg PO DAILY 05/31/23 Thyroid,Pork [[place] Thyroid] 90 mg PO DAILY 05/31/23 Ubidecarenone [Co Q-10] 400 mg PO BEDTIME 05/31/23 Fluticasone Propion/Salmeterol [Advair 250-50 Diskus] 1 tab PO DAILY 08/01/23 Diltiazem HCl [Diltiazem 24Hr Cd] 120 mg PO BEDTIME 07/25/24 Furosemide 20 mg PO DAILY 07/25/24 Lansoprazole [Prevacid] 30 mg PO DAILY 07/25/24 Sotalol HCl [Betapace*] 80 mg PO BID 07/25/24 - Past Medical/Surgical History Diabetic: No -: HLD -: HTN -: A. Fib -: TIA -: CVA -: Hysterectomy -: Rectocele -: Cystocele -: Mastectomy Bilateral -: Cholecystectomy - Social History Smoking Status: Never smoker Alcohol use: No CD- Drugs: No Caffeine use: Yes Place of Residence: Home Review of Systems 10-point ROS is otherwise unremarkable Physical Examination Temp Pulse Resp BP Pulse Ox 98.0 F 58 14 135/63 97 07/26/24 08:00 07/26/24 08:00 07/26/24 08:00 07/26/24 08:00 07/26/24 08:00 General: Alert, In no apparent distress HEENT: Atraumatic, PERRLA, Mucous membr. moist/pink, EOMI, Sclerae nonicteric Neck: Supple, 2+ carotid pulse no bruit, No LAD, Without JVD or thyroid abnormality Respiratory: Clear to auscultation bilaterally, Normal air movement Cardiovascular: Regular rate/rhythm, Normal S1 S2 Gastrointestinal: Normal bowel sounds, No tenderness Musculoskeletal: No tenderness Integumentary: No rashes Neurological: Normal gait, Normal speech, Normal tone, Normal affect Lymphatics: No axilla or inguinal lymphadenopathy Laboratory Data (last 24 hrs) 07/25/24 07/25/24 13:57 13:57 WBC 7.60 Hgb 12.9 Hct 38.6 Plt Count 186 Sodium 140 Potassium 3.7 BUN 14 Creatinine 0.81 Glucose 96 Magnesium 2.2 Total Bilirubin 0.7 AST 14 L ALT 21 Alkaline Phosphatase 59 - Problems (1) Chest pain Current Visit: Yes Status: Acute Plan: patient EKG is negative for ischemia, troponin negative x 3, she had an abnormal stress test in office that shown mild medium size reversible apical wall perfusion defect, typically patient will need coronary angiogram but factory laborer is down so will medically optimize and do it as outpatient next week. continue ASA 81 mg daily continue Crestor 20 mg daily (2) Atrial fibrillation Current Visit: No Status: Acute Plan: Patient tele shows sinus bradycardia in the 50s. lower Sotalol to 40 mg po BID Continue Eliquis 5 mg po BID (3) HLD (hyperlipidemia) Current Visit: No Status: Acute Plan: continue crestor 20 mg daily lipid panel in 6-8 weeks (4) HTN (hypertension) Current Visit: No Status: Acute Plan: BP is normal off Diltazem, continue to hold continue Lasix 20 mg daily
[2024-07-26 12:08] VITALS: BP 138/67; TEMP 97.8
--- NOTE | 2024-07-26 12:12 | EKG ---
Test Date: 2024-07-25 Test Time: 13:59:48 Construction Estimator: TAE MEASUREMENT RESULTS: Intervals: Rate: 68 [place]: 280 QRSD: 100 QT: 454 QTc: 482 [place]: P: 68 [place]: 280 QRS: 81 T: 34 INTERPRETIVE STATEMENTS: Sinus rhythm with 1st degree AV block Incomplete right bundle branch block Cannot rule out Inferior infarct, age undetermined Abnormal ECG Compared to ECG 08/02/2023 16:00:48 Incomplete right bundle-branch block now present Myocardial infarct finding now present Electronically Signed On 07-26-24 12:09:09 CDT by Sachin Chacon
--- NOTE | 2024-07-26 22:04 | DS ---
Date of Discharge: 07/26/2024 Disposition: Discharged to go home. Physical Examination: HEENT: Unremarkable. Lungs: Clear to auscultation. Heart: Sounds normal. Abdomen: Soft. Bowel sounds normal. No guarding, rigidity, tenderness, distention. Extremities: No leg edema. Discharge Medications And Instructions: Continue all prior home medications except following changes: 1. Stop diltiazem. 2. Change sotalol 80 mg take half a tablet by mouth 2 times a day. 3. Follow up at my office next week on . 4. The patient to follow up with soubrette, Dr. Belcher or Dr. Chacon next week for cardiac cath procedure. Final Diagnoses: 1. Unstable angina. 2. Hypothyroidism. 3. Hypertension. 4. Hyperlipidemia. 5. Paroxysmal atrial fibrillation. 6. Chronic anticoagulation therapy. 7. Gastroesophageal reflux disease. 8. Diverticulosis. Laboratory Data: WBC 7.6, hemoglobin 12.9, platelets 186. Sodium 140, potassium 3.7, chloride 111, bicarb 25, BUN 14, creatinine 0.81, glucose 96. Liver function tests unremarkable. Troponin 8.4. ProBNP 1153. Chest x-ray, no acute cardiopulmonary changes. EKG shows sinus rhythm with 1st degree AV block, incomplete right bundle branch block, inferior infarct age undetermined. Hospital Course: This is a 74-year-old female patient, who was admitted to the hospital after she came into office with complaints of chest pain and shortness of breath. Please see dictated H and P for more information. The patient was evaluated at office. Details were discussed with soubrette Dr. Belcher and the patient was admitted to hospital with unstable angina. Her NC was ruled out by getting serial cardiac enzymes. This morning when I saw her, she was asymptomatic. She was kept n.p.o. after midnight for possible cardiac cath procedure to be done today and Dr. Chacon essentially saw her from Cardiology Service and he called me after he evaluated the patient and informed me that cardiac distillery laborer is not operating still because of problem with the machine in the distillery laborer and it will be ready next week for cardiac cath procedure, so he did communicate with the patient and offered her 2 options. One option is to transfer her to another hospital or for her to go home and do elective cardiac cath next week and the patient has elected to go home and she will follow up with his office for cardiac cath procedure to be done next week and I will see her for followup next week also. The patient is medically stable and her heart rate was in range of 50 beats per minute, so Dr. Chacon has suggested to reduce the dose of sotalol to half a tablet 2 times a day and to stop her diltiazem. The patient was discharged to go home in stable condition with above-mentioned medications and instructions. Total time spent 35 minutes. EDDIE/JEANNETTE Voice ID: [id number] Report ID: [id number]
== END 2024-07-26 13:13 | disposition home or self-care (01) ==
LOC: 2ND 12:45 → INTOOBSV 12:45
PROVIDERS: ADMIT Internal Medicine; ATTEND Internal Medicine
DX: I20.0 Unstable angina (principal); E03.9 Hypothyroidism, unspecified; I10 Essential (primary) hypertension; R94.39 Abnormal result of other cardiovascular function study; I48.11 Longstanding persistent atrial fibrillation; R06.02 Shortness of breath; J45.909 Unspecified asthma, uncomplicated; E78.5 Hyperlipidemia, unspecified; K21.9 Gastro-esophageal reflux disease without esophagitis; Z88.2 Allergy status to sulfonamides; Z88.1 Allergy status to other antibiotic agents; Z88.5 Allergy status to narcotic agent; Z79.01 Long term (current) use of anticoagulants
CPT/HCPCS: 93005; 85025; 36415; 83735; 84484 ×2; 80053; 83880; 71045; G0379; G0378 ×2

== ENCOUNTER 2024-08-06 12:31 | Day surgery (SDC) | payer OTHER ==
[2024-08-03 14:31] LABS: PT Prothrombin Time 13.3 SECONDS (10-13.0); Protime INR 1.18
[2024-08-03 14:32] LABS: PTT, Activated Partial Thromb 31.5 SECONDS (27.2-37.4)
[2024-08-06] MEDS ORDERED: HEPARIN 10,000 UNIT/10 ML VIAL IV ONE (14:56)
[2024-08-06] MEDS ORDERED: LIDOCAINE 1% 20 ML MDV ONE (14:57)
[2024-08-06] MEDS ORDERED: FENTANYL CITR 100 MCG/2 ML ONE (14:57)
[2024-08-06] MEDS ORDERED: HEPARIN 5000 UNIT/ML 1 ML VIAL ONE (14:57)
[2024-08-06] MEDS ORDERED: VERAPAMIL HCL 10 MG/4 ML VIAL IV ONE (14:57)
[2024-08-06] MEDS ORDERED: ATROPINE SULF 1 MG/10 ML SYR IV ONE (14:57)
[2024-08-06] MEDS ORDERED: MIDAZOLAM HCL 2 MG/2 ML INJ ONE (14:57)
[2024-08-06] MEDS ORDERED: CLOPIDOGREL 75 MG TABLET ONE (14:57)
[2024-08-06] MEDS ORDERED: ASPIRIN 81 MG CHEWABLE TABLET ONE (14:58)
[2024-08-06] MEDS ORDERED: TICAGRELOR 90 MG TABLET PO ONE (14:58)
[2024-08-06] MEDS ORDERED: ASPIRIN 325 MG TAB ONE (15:06)
[2024-08-06] MEDS ORDERED: NALOXONE 0.4 MG/ML VIAL ONE (15:07)
[2024-08-06] MEDS ORDERED: FLUMAZENIL 0.1 MG/ML (5 mL VIAL) IV ONE (15:07)
[2024-08-06] MEDS ORDERED: HEPA 1000U/500MLS 1,000 UNIT/500 ML BAG IV ONE (15:12)
[2024-08-06] MEDS ORDERED: NA CHLORIDE 0.9% 500 ML ONE (15:16)
[2024-08-06 18:02] VITALS: BP 136/61; O2SAT 95
--- NOTE | 2024-08-06 20:32 | OP ---
Date of Procedure: 08/06/2024 Surgeon: MICAH BELL Procedures Performed: 1. Selective coronary angiogram. 2. Left heart catheterization. Indication: Chest pain with abnormal stress test. Access: Right radial artery 6-Maori closed with TR band. Complications: None. Bleeding: Less than 50 mL. Total Sedation Time: 45 minutes Versed. Description Of Procedure: After risks, benefits, and alternatives were explained, patient agreed to procedure and signed informed consent. The patient was brought into cardiac catheterization laborato , prepped and draped in usual sterile fashion. Then, I accessed right radial artery using Nonpareil c micropuncture kit, placed 6-Maori slender sheath and took 5-Maori [place] 4.0 catheter into the aor tic root over a J-wire, engaged the left main and the right coronary artery, took standard views and then crossed the aortic valve over the wire, measured the LVEDP. Pullback did not record any signifi cant gradient. Then I removed the catheter and the sheath, placed TR band with good hemostasis. Findings: 1. Left main is normal. 2. LAD; proximal mid segment is normal. Mid to distal after diagonal 2 takeoff, there is a 40% focal stenosis. Rest of LAD is normal. Normal diagonal branches. 3. Left circumflex; large and codominant. OM branch has 20% stenosis. 4. RCA; it is moderate size and codominant. No disease. Conclusion: Mild nonobstructive coronary artery disease. Recommendation: Medical management. /JEANNETTE Voice ID: [id number] Report ID: [id number]
== END 2024-08-06 18:09 | disposition home or self-care (01) ==
LOC: CCL 12:31
PROVIDERS: ATTEND Internal Medicine
DX: I25.10 Atherosclerotic heart disease of native coronary artery without angina pectoris (principal); I34.0 Nonrheumatic mitral (valve) insufficiency; I48.0 Paroxysmal atrial fibrillation; I10 Essential (primary) hypertension; K21.9 Gastro-esophageal reflux disease without esophagitis; J45.909 Unspecified asthma, uncomplicated; E03.9 Hypothyroidism, unspecified; Z79.01 Long term (current) use of anticoagulants; Z79.899 Other long term (current) drug therapy; Z88.2 Allergy status to sulfonamides; Z88.4 Allergy status to anesthetic agent; Z88.5 Allergy status to narcotic agent; Z82.49 Family history of ischemic heart disease and other diseases of the circulatory system
CPT/HCPCS: 36415; 85610; 85730; 93458; 76937; C1893; Q9966; J1644; J2003; J2250; J7040; 99152; 99153; J0461; J2310; J3010